=== PATIENT | male | born 1935 | race Two or more races ===

== ENCOUNTER → 2016-05-11 | Outpatient (CLI) | payer OTHER ==
[~2016-05-11] MED LIST: OMEP20CA5 PO
== END | disposition home or self-care (01) ==
LOC: LAB 14:59
PROVIDERS: ATTEND Internal Medicine
DX: I10 Essential (primary) hypertension (principal); R97.20 Elevated prostate specific antigen [PSA]; Z00.00 Encounter for general adult medical examination without abnormal findings
CPT/HCPCS: 82270

== ENCOUNTER → 2017-01-18 | Outpatient (CLI) | payer OTHER ==
[~2017-01-18] MED LIST changes: -OMEP20CA5 PO; +OMEP20CA74 PO
== END | disposition home or self-care (01) ==
LOC: XYW 09:27
PROVIDERS: ATTEND Internal Medicine Cardiovascular Disease
DX: I08.3 Combined rheumatic disorders of mitral, aortic and tricuspid valves (principal); Z95.0 Presence of cardiac pacemaker
CPT/HCPCS: 93306

== ENCOUNTER → 2017-02-09 | Outpatient (CLI) | payer OTHER ==
[2017-02-09 11:04] LABS: Albumin 4.1 g/dL (3.4-5.0); BUN/Creatinine Ratio 23.4; Basophils # (auto) 0 uL; Basophils % (auto) 0.9 % (0.0-2.0); Calcium 9.2 mg/dL (8.5-10.1); Eosinophils # (auto) 0.2 uL; Eosinophils % (auto) 2.8 % (0.0-7.0); Hematocrit 45.8 % (41.0-53.0); Hemoglobin 15.4 g/dL (13.5-17.5); Lymphocytes % (auto) 19.3 % (10.0-50.0); Mean Corpuscular Hemoglobin 32.4 pg (28.0-32.0); Mean Corpuscular Hgb Conc. 33.6 g/dL (32.0-36.0); Mean Corpuscular Volume 96.2 fL (80.0-100.0); Monocytes # (auto) 0.4 uL; Monocytes % (auto) 7.6 % (0.0-12.0); Neutrophils # (auto) 3.7 uL; Neutrophils % (auto) 69.4 % (37.0-80.0); Nucleated Red Blood Cells % 0.1 %; Platelet Count (auto) 197 10^3/uL (140-450); Potassium 4.3 mmol/L (3.5-5.1); Red Cell Distribution Width 14.9 % (11.8-14.3); Total Protein 8.3 g/dL (6.4-8.2); White Blood Cell 5.3 10^3/uL (4.4-10.8)
[2017-02-09 11:49] LABS: Urine Bilirubin Negative (Negative); Urine Blood Negative /uL (Negative); Urine Color Yellow (Yellow); Urine Glucose Normal (Normal); Urine Ketone Negative (Negative); Urine Mucus FEW (None Seen); Urine Nitrite Negative (Negative); Urine RBC <1 /hpf (0 - 3); Urine Squamous Epithelial Cell FEW /hpf (<5)
== END | disposition home or self-care (01) ==
LOC: LAB 09:59
PROVIDERS: ATTEND Internal Medicine
DX: I10 Essential (primary) hypertension (principal); E78.2 Mixed hyperlipidemia; E55.9 Vitamin D deficiency, unspecified; Z79.899 Other long term (current) drug therapy
CPT/HCPCS: 36415; 80053; 80061; 81001; 82306; 83036; 84153; 84443; 85025

== ENCOUNTER 2017-02-13 11:17 | Emergency (ER) | payer OTHER ==
[~2017-02-13] VITALS: Ht 165.1 cm; Wt 64.4 kg
[2017-02-13 12:26] LABS: Basophils # (auto) 0.1 uL; Basophils % (auto) 0.9 % (0.0-2.0); Eosinophils # (auto) 0.2 uL; Hematocrit 47.5 % (41.0-53.0); Hemoglobin 15.9 g/dL (13.5-17.5); Lymphocytes # (auto) 1.2 uL; Lymphocytes % (auto) 20.3 % (10.0-50.0); Mean Corpuscular Hemoglobin 32.2 pg (28.0-32.0); Mean Corpuscular Hgb Conc. 33.5 g/dL (32.0-36.0); Mean Corpuscular Volume 96.1 fL (80.0-100.0); Mean Platelet Volume 8.7 fL (6.9-10.8); Monocytes # (auto) 0.5 uL; Monocytes % (auto) 8.4 % (0.0-12.0); Neutrophils # (auto) 3.9 uL; Neutrophils % (auto) 66.4 % (37.0-80.0); Nucleated Red Blood Cells % 0.3 %; Platelet Count (auto) 193 10^3/uL (140-450); White Blood Cell 5.8 10^3/uL (4.4-10.8)
[2017-02-13] MEDS ORDERED: KETOROLAC TROMETH 60MG/2ML VIAL IM ONE (13:00)
[2017-02-13 13:52] VITALS: BP 139/69
[2017-02-13 14:17] LABS: Alkaline Phosphatase 82 U/L (45-117); Anion Gap 5 (5-15); Aspartate Aminotransferase 24 U/L (15-37); Bilirubin, Total 0.9 mg/dL (0.2-1.0); Carbon Dioxide 28 mmol/L (21-32); Chloride 100 mmol/L (98-107); GFR African American 88 mL/min; GFR Non-African American 73 mL/min; Glucose 91 mg/dL (74-106); Magnesium 2.1 mg/dL (1.6-2.6); Potassium 4.4 mmol/L (3.5-5.1); Sodium 133 mmol/L (136-145); Total Protein 8.5 g/dL (6.4-8.2)
[2017-02-13 14:25] LABS: BUN/Creatinine Ratio 22.1; Blood Urea Nitrogen 23 mg/dL (7-18)
== END 2017-02-13 13:53 | disposition home or self-care (01) ==
LOC: ER 11:17
DX: M79.602 Pain in left arm (principal); M54.9 Dorsalgia, unspecified; E11.9 Type 2 diabetes mellitus without complications; I10 Essential (primary) hypertension; I25.2 Old myocardial infarction; Z88.6 Allergy status to analgesic agent; Z88.5 Allergy status to narcotic agent; Z95.0 Presence of cardiac pacemaker
CPT/HCPCS: 36415; 70450; 80053; 83735; 84484; 85025; 93005; 96372; 99285; J1885

== ENCOUNTER 2017-06-06 21:52 | Inpatient (IN) | payer OTHER ==
[~2017-06-06] VITALS: Ht 152.4 cm; Wt 67.6 kg
[2017-06-06] MEDS ORDERED: IPRATROPIUM BROM 0.5 MG/2.5ML INH SOL NEB ONE (22:45)
[2017-06-06] MEDS ORDERED: ALBUTEROL SULF 2.5 MG/0.5ML(0.5%) NEB SOLN NEB ONE (22:45)
[2017-06-06 22:46] LABS: Basophils # (auto) 0.1 uL; Basophils % (auto) 0.8 % (0.0-2.0); Eosinophils # (auto) 0.3 uL; Eosinophils % (auto) 4.4 % (0.0-7.0); Hematocrit 41.8 % (41.0-53.0); Hemoglobin 13.9 g/dL (13.5-17.5); Lymphocytes # (auto) 1.2 uL; Lymphocytes % (auto) 17.8 % (10.0-50.0); Mean Corpuscular Hemoglobin 32.9 pg (28.0-32.0); Mean Corpuscular Hgb Conc. 33.3 g/dL (32.0-36.0); Mean Corpuscular Volume 98.8 fL (80.0-100.0); Monocytes # (auto) 0.8 uL; Monocytes % (auto) 11.7 % (0.0-12.0); Neutrophils # (auto) 4.5 uL; Neutrophils % (auto) 65.3 % (37.0-80.0); Platelet Count (auto) 193 10^3/uL (140-450); Red Blood Cells 4.23 10^6/uL (4.5-5.90); Red Cell Distribution Width 15.2 % (11.8-14.3); White Blood Cell 6.8 10^3/uL (4.4-10.8)
[2017-06-06 22:58] LABS: Albumin 3.6 g/dL (3.4-5.0); BUN/Creatinine Ratio 26.3; Bilirubin, Total 0.7 mg/dL (0.2-1.0); Calcium 8.7 mg/dL (8.5-10.1); Magnesium 2.3 mg/dL (1.6-2.6); Potassium 4.8 mmol/L (3.5-5.1); Total Protein 8.2 g/dL (6.4-8.2)
[2017-06-06 23:05] LABS: INR 1.06 (0.9-1.15); Partial Thromboplastin Time 30.7 sec (22.64-33.71); Prothrombin Time 11.6 sec (9.37-12.3)
[2017-06-06] MEDS ORDERED: LEVOFLOXACIN 500MG 100 ML IV ONE (23:15)
[2017-06-06] MEDS ORDERED: FUROSEMIDE 40 MG/4 ML VIAL IV ONE (23:15)
[2017-06-07] MEDS ORDERED: AZITHROMYCIN 500MG/ 250ML 250 ML IV ONE (03:00)
[2017-06-07] MEDS ORDERED: ACETAMINOPHEN 500 MG TAB PO PRN (03:00)
[2017-06-07] MEDS ORDERED: ONDANSETRON HCL 4 MG/2 ML VIAL IV PRN (03:00)
[2017-06-07] MEDS ORDERED: methylPREDNISolone SOD SUCC 125 MG/2 ML VL IV ONE (03:00)
[2017-06-07 06:01] VITALS: BP 140/69
[2017-06-07] MEDS: IPRATROPIUM BROM 0.5 MG/2.5ML INH SOL NEB SCH ×3 (06:18→18:53)
[2017-06-07] MEDS: ALBUTEROL SULF 2.5 MG/0.5ML(0.5%) NEB SOLN NEB SCH ×3 (06:18→18:53)
[2017-06-07 06:41] VITALS: BP 140/69
[2017-06-07 08:45] LABS: Basophils # (auto) 0 uL; Basophils % (auto) 0.3 % (0.0-2.0); Eosinophils # (auto) 0 uL; Eosinophils % (auto) 0.3 % (0.0-7.0); Hematocrit 42.8 % (41.0-53.0); Hemoglobin 14.1 g/dL (13.5-17.5); Lymphocytes # (auto) 0.4 uL; Lymphocytes % (auto) 7.4 % (10.0-50.0); Mean Corpuscular Hemoglobin 32.5 pg (28.0-32.0); Mean Corpuscular Volume 98.6 fL (80.0-100.0); Monocytes # (auto) 0.2 uL; Monocytes % (auto) 2.6 % (0.0-12.0); Neutrophils # (auto) 5.4 uL; Neutrophils % (auto) 89.4 % (37.0-80.0); Nucleated Red Blood Cells % 0.1 %; Platelet Count (auto) 204 10^3/uL (140-450); Red Blood Cells 4.34 10^6/uL (4.5-5.90); White Blood Cell 6.1 10^3/uL (4.4-10.8)
[2017-06-07 09:00] VITALS: BP 132/58
[2017-06-07 09:00] LABS: BUN/Creatinine Ratio 21.6; Calcium 9.2 mg/dL (8.5-10.1); Potassium 4.9 mmol/L (3.5-5.1)
[2017-06-07] MEDS: FUROSEMIDE 40 MG/4 ML VIAL IV SCH (09:16)
[2017-06-07] MEDS: HYDROcodone-ACET 5/325MG TAB PO PRN ×2 (12:10→20:34)
[2017-06-07 13:00] VITALS: BP 142/68
[2017-06-07 17:31] VITALS: BP 135/56
[2017-06-07] MEDS: AZITHROMYCIN 500MG/ 250ML 250 ML IV SCH (21:20)
[2017-06-07 22:00] VITALS: BP 157/70
[2017-06-07] MEDS: ATORVASTATIN 20 MG TAB PO SCH (22:00)
[2017-06-08] MEDS: HYDROcodone-ACET 5/325MG TAB PO PRN ×3 (00:09→21:08)
[2017-06-08] MEDS: ALBUTEROL SULF 2.5 MG/0.5ML(0.5%) NEB SOLN NEB SCH ×4 (00:20→20:10)
[2017-06-08] MEDS: IPRATROPIUM BROM 0.5 MG/2.5ML INH SOL NEB SCH ×4 (00:20→20:10)
[2017-06-08 05:16] VITALS: BP 153/78
[2017-06-08] MEDS: LEVOTHYROXINE SODIUM 25 MCG TAB PO SCH (05:57)
[2017-06-08 08:00] VITALS: BP 125/59
[2017-06-08 09:00] VITALS: BP 125/59
[2017-06-08] MEDS: ASPirin 81 mg TAB PO SCH (09:43)
[2017-06-08] MEDS: FUROSEMIDE 40 MG/4 ML VIAL IV SCH (09:43)
[2017-06-08] MEDS: LISINOPRIL 20 MG TAB PO SCH (09:44)
[2017-06-08] MEDS ORDERED: cefTRIAXone 1GM/10ml IVPUSH 10 ML IV ONE (11:00)
[2017-06-08 13:00] VITALS: BP 141/65
[2017-06-08 17:00] VITALS: BP 135/64
[2017-06-08] MEDS: AZITHROMYCIN 500MG/ 250ML 250 ML IV SCH (20:55)
[2017-06-08] MEDS: ATORVASTATIN 20 MG TAB PO SCH (21:08)
[2017-06-08 22:00] VITALS: BP 109/55
[2017-06-09] MEDS: IPRATROPIUM BROM 0.5 MG/2.5ML INH SOL NEB SCH ×3 (01:30→13:01)
[2017-06-09] MEDS: ALBUTEROL SULF 2.5 MG/0.5ML(0.5%) NEB SOLN NEB SCH ×3 (01:30→13:01)
[2017-06-09 05:00] VITALS: BP 143/59
[2017-06-09 06:14] VITALS: BP 115/55
[2017-06-09] MEDS: LEVOTHYROXINE SODIUM 25 MCG TAB PO SCH (07:28)
[2017-06-09 07:47] LABS: Basophils # (auto) 0 uL; Basophils % (auto) 0.6 % (0.0-2.0); Eosinophils # (auto) 0.3 uL; Eosinophils % (auto) 4.9 % (0.0-7.0); Hematocrit 42.5 % (41.0-53.0); Hemoglobin 14.2 g/dL (13.5-17.5); Lymphocytes # (auto) 1.6 uL; Lymphocytes % (auto) 22.8 % (10.0-50.0); Mean Corpuscular Hemoglobin 33.2 pg (28.0-32.0); Mean Corpuscular Hgb Conc. 33.4 g/dL (32.0-36.0); Mean Corpuscular Volume 99.6 fL (80.0-100.0); Monocytes # (auto) 0.6 uL; Monocytes % (auto) 9.1 % (0.0-12.0); Neutrophils # (auto) 4.4 uL; Neutrophils % (auto) 62.6 % (37.0-80.0); Platelet Count (auto) 205 10^3/uL (140-450); Red Blood Cells 4.27 10^6/uL (4.5-5.90); Red Cell Distribution Width 14.9 % (11.8-14.3)
[2017-06-09 07:52] LABS: BUN/Creatinine Ratio 32.2; Calcium 8.8 mg/dL (8.5-10.1); Potassium 5.5 mmol/L (3.5-5.1)
[2017-06-09 08:30] VITALS: BP 131/71
[2017-06-09 09:00] VITALS: BP 131/71
[2017-06-09] MEDS ORDERED: cefTRIAXone 1GM/10ml IVPUSH 10 ML IV SCH (09:00)
[2017-06-09] MEDS: LISINOPRIL 20 MG TAB PO SCH (09:04)
[2017-06-09] MEDS: FUROSEMIDE 40 MG/4 ML VIAL IV SCH (09:04)
[2017-06-09] MEDS: ASPirin 81 mg TAB PO SCH (09:04)
[2017-06-09 11:25] VITALS: BP 131/71
== END 2017-06-09 12:15 | disposition home or self-care (01) | DRG 291 ==
LOC: ER 21:52 → EDUNIT# 21:53 → TELE 21:53 → TELE-EAST 06-07 04:30
PROVIDERS: ADMIT Nurse Practitioner Family; ATTEND Family Medicine
DX: I11.0 Hypertensive heart disease with heart failure (principal); J18.1 Lobar pneumonia, unspecified organism; J44.0 Chronic obstructive pulmonary disease with (acute) lower respiratory infection; J20.9 Acute bronchitis, unspecified; J44.1 Chronic obstructive pulmonary disease with (acute) exacerbation; I50.43 Acute on chronic combined systolic (congestive) and diastolic (congestive) heart failure; E03.9 Hypothyroidism, unspecified; I25.10 Atherosclerotic heart disease of native coronary artery without angina pectoris; K21.9 Gastro-esophageal reflux disease without esophagitis; I25.2 Old myocardial infarction; Z79.899 Other long term (current) drug therapy; Z82.49 Family history of ischemic heart disease and other diseases of the circulatory system; Z95.0 Presence of cardiac pacemaker; Z87.891 Personal history of nicotine dependence; Z98.61 Coronary angioplasty status; Z95.1 Presence of aortocoronary bypass graft; Z88.5 Allergy status to narcotic agent
CPT/HCPCS: 36415; 71045; 71250; 80048; 80053; 83735; 83880; 84443; 84484; 85025; 85379; 85610; 85730; 87040; 87070; 87205; 87400; 93005; 93306; 94640; 96365; 96367; 96375; J1956; J2405

== ENCOUNTER → 2018-08-29 | Outpatient (CLI) | payer OTHER ==
[~2018-08-29] MED LIST changes: +DULO20CA PO; +FURO40TA4 PO; +IOHEXOL 350 MG/ML 100ML IJ ONE; +LOSA25TA40 PO; +OMEP20CA74; +POTA1TAB61 PO; +TAM04C PO; +TRIA75TA55 PO
== END | disposition home or self-care (01) ==
LOC: XYW 09:35
PROVIDERS: ATTEND Internal Medicine
DX: Z01.818 Encounter for other preprocedural examination (principal); K40.90 Unilateral inguinal hernia, without obstruction or gangrene, not specified as recurrent; N40.0 Benign prostatic hyperplasia without lower urinary tract symptoms; I35.1 Nonrheumatic aortic (valve) insufficiency; N28.1 Cyst of kidney, acquired; I35.0 Nonrheumatic aortic (valve) stenosis; I51.7 Cardiomegaly
CPT/HCPCS: 75574; 75625; Q9967

== ENCOUNTER 2018-08-31 08:19 | Inpatient (IN) | payer OTHER ==
[~2018-08-31] VITALS: Ht 165.1 cm; Wt 98.6 kg
[~2018-08-31 08:19] MED LIST changes: -IOHEXOL 350 MG/ML 100ML IJ ONE
[2018-08-31] MEDS ORDERED: IOHEXOL 350 MG/ML 100ML IJ ONE ×3 (08:53→11:01)
[2018-08-31] MEDS ORDERED: LIDOCAINE 2%HCL (LOCAL ANESTH.) INJ 20ML MDV ONE (08:53)
[2018-08-31] MEDS ORDERED: MIDAZOLAM HCL 1MG/1ML-2 ML VIAL IV ONE (09:00)
[2018-08-31] MEDS ORDERED: LIDOCAINE VISCOUS 2% 15ML UD PO ONE (09:00)
[2018-08-31] MEDS ORDERED: fentaNYL CITRATE 100 MCG/2 ML VL IV ONE (09:00)
[2018-08-31] MEDS ORDERED: LIDOCAINE VISCOUS 2% 15ML UD ONE (09:05)
[2018-08-31] MEDS ORDERED: fentaNYL CITRATE 100 MCG/2 ML VL ONE (09:05)
[2018-08-31] MEDS ORDERED: MIDAZOLAM HCL 1MG/1ML-2 ML VIAL ONE (09:05)
[2018-08-31] MEDS ORDERED: SODIUM CHL 0.9% 50 ML ONE (10:15)
[2018-08-31] MEDS ORDERED: ANGIOMAX 250 MG VIAL IV ONE (10:15)
[2018-08-31] MEDS ORDERED: ATROPINE SULFATE 1 MG/1 ML VIAL ONE (10:44)
[2018-08-31] MEDS ORDERED: DOPamine 1600MCG/ML D5W 0 ML IV ONE (11:10)
[2018-08-31] MEDS ORDERED: IODIXANOL 320MG/ML 100ML BTL IV ONE (11:16)
[2018-08-31] MEDS ORDERED: ASPirin 325 MG TAB ONE (11:29)
[2018-08-31] MEDS ORDERED: TICAGRELOR 90 MG TAB ONE (11:29)
[2018-08-31] MEDS ORDERED: MORPHINE SULF INJ 2 MG/ML SYRINGE 1ML IV PRN (13:15)
[2018-08-31] MEDS ORDERED: NITROGLYCERIN 0.4 MG SL TAB SL PRN (13:15)
[2018-08-31 15:20] VITALS: BP 144/80
--- NOTE | 2018-08-31 15:20 | NUR ---
RECEIVED PT FROM TELEVISION NEWSCAST DIRECTOR S/P LT AND RT HEART CATH, RT GROIN DRESSING WITH A SMALL SANGUINEOUS DRAINAGE CIRCLED, BRUISING AND HEMATOMA NOTICED AROUND RT GROIN AREA, BORDERS OF HEMATOMA MARKED, TELEVISION NEWSCAST DIRECTOR NURSE APPLIED PRESSURE TO RT GROIN FOR 10 MIN., PT REPORT PAIN TO RT GROIN AREA WHEN PRESSURE APPLIED ONLY, PEDAL PULSES PRESENT, PT EDUCATED TO STAY IN BED UNTIL 2100, PT VERBALIZED UNDERSTANDING, CALL LIGHT WITHIN REACH, WILL CONTINUE TO MONITOR PT.
[2018-08-31 16:07] VITALS: BP 144/80
[2018-08-31 16:30] VITALS: BP_SYST 128; BP_SYST 144; BP_DIAS 62; BP_DIAS 80
[2018-08-31 17:15] VITALS: BP 156/67
[2018-08-31] MEDS: TAMSULOSIN HYDROCHLORIDE 0.4 MG CAP PO SCH (17:58)
[2018-08-31] MEDS: FUROSEMIDE 40 MG TAB PO SCH (17:59)
[2018-08-31] MEDS ORDERED: PANTOPRAZOLE 40 MG TAB PO ONE (18:30)
--- NOTE | 2018-08-31 18:48 | NUR ---
ASSESSED RT GROIN AREA, HEMATOMA MARGIN HAS NOT CHANGED, RT GROIN DRESSING SATURATED WITH SEROSANGUINEOUS FLUID, CHANGED DRESSING, WILL CONTINUE TO MONITOR AND ENDORSE IT TO OVERLOCK SEWING MACHINE OPERATOR NURSE.
--- NOTE | 2018-08-31 19:10 | NUR ---
Opening Shift Note Assumed care of patient from day shift RN Indira. Pt is awake and alert and oriented x4. Safety maintained with bed rails upx2, locked and in lowest position with call grier within reach. No S/S of distress/SOB or pain. Instructed on POC and to call for assist PRN, will continue to monitor for changes Q1hr and PRN.
--- NOTE | 2018-08-31 21:00 | NUR ---
REASSESSED RIGHT GROIN AREA, HEMATOMA MARGIN MARKED, SIGNIFICANTLY DECREASED IN SIZE. REAPPLED MANUAL PRESSURE. SATURATED WITH MINIMAL AMOUNT OF SANGUINEOUS FLUID. REAPPLIED 10LB SAND BAG ON RIGHT GROIN. NO S/S DISTRESS, WILL CONTINUE TO MONITOR.
[2018-08-31 22:00] VITALS: BP 129/73
--- NOTE | 2018-08-31 22:30 | NUR ---
DRESSING CHANGE RIGHT GROIN INCISION DRAINING MODERATE SANGUINEOUS FLUID. DRESSING CHANGED, SMALL BLOOD CLOT NOTED. REAPPLIED MANUAL PRESSURE AFTER DRESSING CHANGE. PLACED 10LB SAND BAG ON RIGHT GROIN. NO S/S DISTRESS, WILL CONTINUE TO MONITOR.
[2018-08-31] MEDS: TICAGRELOR 90 MG TAB PO SCH (22:31)
[2018-09-01] VITALS (17 sets, daily range): BP systolic 86–154; BP diastolic 37–89
--- NOTE | 2018-09-01 02:15 | NUR ---
RIGHT GROIN DRESSING FULLY SATURATED WITH SANGUINEOUS DRAINAGE. PATIENT'S RIGHT FEMORAL PULSE AND RIGHT DORSALIS PEDIS PULSE STRONG. PT ABLE TO WIGGLE TOES. CAP REFILL <3 SECONDS. PT DENIES PAIN, ONLY C/O SORENESS. APPLIED MANUAL PRESSURE FOR 20 MINUTES. CHANGED DRESSING TO RIGHT GROIN. HEMATOMA REMARKED, NO CHANGES FROM PRIOR ISAURA. 10LB SAND BAG REAPPLIED. WILL CONTINUE TO MONITOR FOR BLEEDING. Addendum: 09/01/18 at 0257 by SANGEETA VARGAS RN RN CHARGE NURSE JD MADE AWARE OF PATIENT'S STATUS
--- NOTE | 2018-09-01 04:24 | NUR ---
HOSPITALIST PAGED PER CHARGE NURSE JD, MAKE HOSPITALIST AWARE OF PATIENT'S SITUATION.
--- NOTE | 2018-09-01 05:25 | NUR ---
DR. ROJO UPDATED DR. ROJO ABOUT PATIENT'S SITUATION. NEW ORDERS FOR STAT CBC AND ULTRASOUND OF RIGHT GROIN. INSTRUCTED TO HOLD MANUAL PRESSURE UNTIL BLEEDING STOPS. TRANSFER TO ICU FOR PROPER MONITORING. CALLED HOUSE AMARJIT, MADE AWARE OF TRANSFER REQUEST. ASSIGNED TO ROOM 103THERESA RN. Addendum: 09/01/18 at 0610 by SANGEETA VARGAS RN RN ROOM 102THERESA RN
--- NOTE | 2018-09-01 05:51 | NUR ---
REPORT GIVEN TO THERESA DANIELS
[2018-09-01] MEDS: FUROSEMIDE 40 MG TAB PO SCH ×2 (05:53→09:33)
--- NOTE | 2018-09-01 06:00 | NUR ---
ARRIVAL NOTE PT ARRIVED TO ICU FROM TELE. VS ON ARRIVAL, TEMP 98.5 ORAL. HR 60 PACED, RR 14, O2 96% ON RA, BP 154/61. PATIENT ALERT AND ORIENTED X4. PT HAS LARGE HEMATOMA AROUND CATH SITE. DRESSING SOAKED IN BLOOD. 10 LBS SANDBAG PLACED ON SITE. PT DENIES PAIN AT THIS TIME. pT PLACED IN ICU BED AND WEIGHED. 65KGS. PT ORIENTED TO RN AND UNIT. BED LOCKED AND IN LOWEST POSITION, SAFETY PRECAUTIONS IN PLACE. PT INSTRUCTED TO KEEP RIGHT LEG STRAIGHT AND USE CALL BLANKENSHIP IF PATIENT NEEDS ANYTHING. PT VERBALIZED UNDERSTANDING.
--- NOTE | 2018-09-01 06:07 | NUR ---
PATIENT TRANSFERRED TO ICU ROOM 102 Addendum: 09/01/18 at 0616 by SANGEETA VARGAS RN RN PATIENT TRANSFERRED TO ICU ROOM 103
--- NOTE | 2018-09-01 06:16 | NUR ---
ROOM 103, JEREMIAH CARDENAS.
--- NOTE | 2018-09-01 06:18 | NUR ---
CALL PLACED TO PATIENT'S TO INFORM OF PATIENT TRANSFER TO ICU
--- NOTE | 2018-09-01 06:40 | NUR ---
SAFE GUARD WITH 40 CC OF AIR PLACED ON CATH SITE BY CUSTOMS AND BORDER PROTECTION OFFICER YVONNE. PT TOLERATED WELL. SLIGHT OOZING NOTED FROM SITE.
[2018-09-01 07:19] LABS: Basophils # (auto) 0 uL; Basophils % (auto) 0.4 % (0.0-2.0); Eosinophils # (auto) 0 uL; Eosinophils % (auto) 0.2 % (0.0-7.0); Hematocrit 39.7 % (41.0-53.0); Hemoglobin 13.2 g/dL (13.5-17.5); Lymphocytes # (auto) 0.4 uL; Lymphocytes % (auto) 6.2 % (10.0-50.0); Mean Corpuscular Hemoglobin 32.7 pg (28.0-32.0); Mean Corpuscular Hgb Conc. 33.2 g/dL (32.0-36.0); Mean Corpuscular Volume 98.3 fL (80.0-100.0); Monocytes # (auto) 0.4 uL; Monocytes % (auto) 6.4 % (0.0-12.0); Neutrophils # (auto) 6.1 uL; Neutrophils % (auto) 86.8 % (37.0-80.0); Platelet Count (auto) 121 10^3/uL (140-450); Red Blood Cells 4.04 10^6/uL (4.5-5.90); Red Cell Distribution Width 14.9 % (11.8-14.3)
--- NOTE | 2018-09-01 07:45 | NUR ---
ASSESS- PT. LYING IN BED WITH EYES CLOSED. AROUSABLE, ALERT AND ORIENTED TIMES FOUR. DENIES ANY PAIN OR DISCOMFORT AT THIS TIME. LUNGS CLEAR AFIA. INSPIRATORY AND EXPIRATORY. NO SOB. ON R/A. ABD. SOFT, FLAT, NON-TENDER. BOWEL SOUNDS ALL FOUR QUADRANTS. NO N/V. PASSING FLATUS PT. STATED. RADIAL PULSES STRONG, PALPABLE AFIA. PEDAL PULSES STRONG, PALPABLE AFIA. NO EDEMA. RT. GROIN WITH SAFEGUARD INTACT, SM. AMOUNT BLOOD UNDERNEATH SAFEGUARD, LG. HEMATOMA RT. GROIN WITH BRUISING. PT. ON STRICT BEDREST, EXPLAINED TO PT. IMPORTANCE OF BEING ON BEDREST, PT. COMPREHENDS.
--- NOTE | 2018-09-01 09:30 | NUR ---
Family updated on pt status Family of RON CRUZ updated on patient's status and condition. All questions and concerns addressed. verbalized understanding. VISITING AT THE BS.
[2018-09-01] MEDS: POTASSIUM CHL 10 Meq TABLET PO SCH (09:32)
[2018-09-01] MEDS: ASPirin 81 mg TAB PO SCH ×2 (09:33→11:41)
[2018-09-01] MEDS ORDERED: PANTOPRAZOLE 40 MG TAB PO SCH (10:00)
--- NOTE | 2018-09-01 10:00 | NUR ---
TECH AT BS FOR US RT. GROIN. DEFLATED SAFEGUARD FOR TEST.
--- NOTE | 2018-09-01 10:10 | NUR ---
US COMPLETED. RT. GROIN STARTED TO BLEED. REINFLATED SAFEGUARD RT. GROIN WITH 40 CC OF AIR. MONITORING PT. FOR BLEEDING.
--- NOTE | 2018-09-01 10:45 | NUR ---
NO BLEEDING AT RT. GROIN SITE. SAFEGUARD INFLATED AND INTACT. LG. HEMATOMA PRESENT RT. GROIN WITH BRUISING.
--- NOTE | 2018-09-01 11:25 | NUR ---
DR. ROJO Provider/Hospitalist at bedside. GAVE UPDATE ON PT. SPOKE WITH PT., AND DAUGHTER AT BS. OK TO GIVE BRILINTA AND ASPIRIN TODAY. NO MORE BLEEDING AT RT. GROIN. SAFEGUARD IN PLACE. VSS.
[2018-09-01] MEDS: TICAGRELOR 90 MG TAB PO SCH ×2 (11:41→21:45)
--- NOTE | 2018-09-01 12:45 | NUR ---
PT. HAD GOTTEN UP TO TOILET BY SELF TO HAVE BM. STARTED BLEEDING RT. GROIN, SAFEGUARD CAME OFF SITE. CLOT TO RT. GROIN SEEN WITH SOME BLEEDING TO SITE. CLEANSED PT'S. GROIN AREA AND APPLIED NEW SAFEGUARD WITH 40 CC OF AIR. CHANGED PT'S. GOWN AND LINENS. TOLERATED WELL.
--- NOTE | 2018-09-01 12:55 | NUR ---
Called/paged Dr. ROJO called re: . Waiting for call back. Continue care.
--- NOTE | 2018-09-01 13:00 | NUR ---
returned call Dr. ROJO returned call, updated on patient status and reason for call, orders received. Continue care.
[2018-09-01] MEDS ORDERED: THROMBIN (BOVINE) 5000 UNIT SOL VIAL ONE (13:42)
--- NOTE | 2018-09-01 13:45 | NUR ---
Called/paged Dr. ROJO called re: . Waiting for call back. Continue care.
--- NOTE | 2018-09-01 13:50 | NUR ---
returned call Dr. ORJO returned call, updated on patient status and reason for call, orders received. Continue care. [employer] COMING TO BS NOW WITH DR. ROJO.
--- NOTE | 2018-09-01 14:00 | NUR ---
DR. ROJO AT BS WITH [employer] TECH TO INJECT THROMBIN INTO PSEUDOANEURYSM RT. GROIN. USED 1CC OF THROMBIN FROM 5000 UNIT VIAL. PT. TOLERATED WELL. NO MORE BLEEDING TO RT. GROIN AFTER PROCEDURE, AREA HAS LG. BRUISE. APPLIED TEGADERM TO SITE WITH 4X4. PULSES STRONG, PALPABLE ALL EXT.
[2018-09-01] MEDS ORDERED: LIDOCAINE 1% (LOCAL ANESTH.) PF 5ml SDV ONE (14:07)
[2018-09-01] MEDS ORDERED: THROMBIN (BOVINE) 5000 UNIT SOL VIAL XX ONE (15:00)
--- NOTE | 2018-09-01 15:30 | NUR ---
RT. GROIN WITH DSG. D/I, LG. BRUISE TO AREA. NO BLEEDING AT THIS TIME.
--- NOTE | 2018-09-01 15:30 | NUR ---
DR. LR Provider/Hospitalist at bedside. GAVE UPDATE ON PT. NEW ORDERS RECEIVED.
[2018-09-01] MEDS ORDERED: PANTOPRAZOLE 40 MG TAB PO ONE (15:45)
[2018-09-01] MEDS ORDERED: LISINOPRIL 10 MG TAB PO ONE (15:45)
[2018-09-01 16:17] LABS: Urine WBC None Seen /hpf (0 - 3)
--- NOTE | 2018-09-01 16:30 | NUR ---
PT. STATED HE FELT LIKE HE CAN NOT CATCH HIS BREATH. LUNGS CLEAR AFIA. INSPIRATORY AND EXPIRATORY. RR TEENS TO LOW 20'S. O2 SATS 94%. PLACED O2 2L N/C ON PT. O2 SATS INCREASED TO 98%. MONITORING PT.
--- NOTE | 2018-09-01 17:00 | NUR ---
PT. NO LONGER SOB. O2 SATS 97%-98%. NO SIGNS OF RESP. DISTRESS. PT. STATED HIS VISION SEEMS BLURRY WHEN HE IS READING BOARD IN RM. AND WAS NOT LIKE THAT PREVIOUSLY. NO HEADACHE. NO LIGHTHEADNESS OR DIZZYNESS. PUPILS 2 AND BRISK AFIA. TO LIGHT. MOVES ALL EXTREMITIES WITHOUT DIFFICULTY. SBP ONE TEENS AFTER RECEIVING LISINOPRIL 10 MG. PO PREVIOUSLY. HR 60'S SR WITH BBB.
[2018-09-01 17:04] LABS: Calcium 9.2 mg/dL (8.5-10.1); Potassium 3.5 mmol/L (3.5-5.1)
[2018-09-01 17:07] LABS: BUN/Creatinine Ratio 17.8
[2018-09-01 17:18] LABS: Basophils # (auto) 0.1 uL; Basophils % (auto) 1.7 % (0.0-2.0); Eosinophils # (auto) 0 uL; Eosinophils % (auto) 0.6 % (0.0-7.0); Hematocrit 40.4 % (41.0-53.0); Hemoglobin 13.7 g/dL (13.5-17.5); Lymphocytes # (auto) 0.5 uL; Mean Corpuscular Hgb Conc. 33.8 g/dL (32.0-36.0); Mean Corpuscular Volume 97.7 fL (80.0-100.0); Monocytes # (auto) 0.5 uL; Monocytes % (auto) 7.8 % (0.0-12.0); Neutrophils # (auto) 5.5 uL; Neutrophils % (auto) 81.9 % (37.0-80.0); Platelet Count (auto) 124 10^3/uL (140-450); Red Blood Cells 4.14 10^6/uL (4.5-5.90); Red Cell Distribution Width 14.6 % (11.8-14.3); White Blood Cell 6.7 10^3/uL (4.4-10.8)
[2018-09-01 17:22] LABS: Urine Bacteria NONE SEEN /hpf (None Seen); Urine Blood 2+ /uL (Negative); Urine Specific Gravity 1.013 (1.001-1.035)
--- NOTE | 2018-09-01 18:30 | NUR ---
PT. HAD GOTTEN OOB, STANDING AT THE BS, GAIT STEADY. PT. WAS ASLEEP AND SAID WHEN HE WOKE UP HE FORGOT WHERE HE WAS, THOUGHT HE WAS AT . PT. DID NOT USE CALL BLANKENSHIP. REORIENTED PT. AND INFORMED IMPORTANCE OF CALLING NURSE SO HE DOES NOT FALL OR GET INJURED. PLACED BED ALARM ON.
--- NOTE | 2018-09-01 19:00 | NUR ---
OPENING NOTE ASSUMED CARE OF PT AT THIS TIME. REPORT RECEIVED FROM DAY SHIFT RN. POC REVIEWED WITH PT. HEAD TO TOE ASSESSMENT COMPLETE, SEE INTERVENTION SPREADSHEET FOR COMPLETE DETAILS. PATIENT ALERT AND ORIENTED WITH BOUTS OF FORGETFULNESS. PT REQUIRES FREQUENT REINFORCEMENT NOT TO GET OUT OF BED. BED ALARM ON AT THIS TIME. IV SITE BENIGN. PT DENIES PAIN. VSS. BED LOCKED AND IN LOWEST POSITION, SAFETY PRECAUTIONS IN PLACE. RIGHT GROIN CATH SITE BRUISED AND TENDER TO TOUCH. NO BLOOD NOTED ON DRESSING. BED REST ENCOURAGED. WILL MONITOR PT CAREFULLY.
[2018-09-01] MEDS: TAMSULOSIN HYDROCHLORIDE 0.4 MG CAP PO SCH (19:24)
--- NOTE | 2018-09-01 21:08 | NUR ---
PT OOB ASSISTED BY JEREMIAH CARDENAS TO RESTROOM. PT WENT 1 AND 2. PT BACK IN BED WITH NO INCIDENT. BED LOCKED AND IN LOWEST POSITION. BED ALARM ON. PT INSTRUCTED TO USE CALL BLANKENSHIP. PT VERBALIZE UNDERSTANDING.
[2018-09-02] VITALS (16 sets, daily range): BP systolic 85–125; BP diastolic 36–69
[2018-09-02 04:15] LABS: Basophils # (auto) 0 uL; Basophils % (auto) 0.3 % (0.0-2.0); Eosinophils # (auto) 0.1 uL; Eosinophils % (auto) 2.3 % (0.0-7.0); Hematocrit 39.2 % (41.0-53.0); Hemoglobin 12.9 g/dL (13.5-17.5); Lymphocytes # (auto) 0.6 uL; Lymphocytes % (auto) 9.6 % (10.0-50.0); Mean Corpuscular Hemoglobin 32.4 pg (28.0-32.0); Mean Corpuscular Volume 98.3 fL (80.0-100.0); Monocytes # (auto) 0.7 uL; Monocytes % (auto) 11.2 % (0.0-12.0); Neutrophils # (auto) 4.7 uL; Neutrophils % (auto) 76.6 % (37.0-80.0); Platelet Count (auto) 116 10^3/uL (140-450); Red Blood Cells 3.99 10^6/uL (4.5-5.90); Red Cell Distribution Width 14.5 % (11.8-14.3); White Blood Cell 6.1 10^3/uL (4.4-10.8)
[2018-09-02 04:18] LABS: Potassium 3.9 mmol/L (3.5-5.1)
[2018-09-02 04:21] LABS: Albumin 3.4 g/dL (3.4-5.0); Calcium 9.1 mg/dL (8.5-10.1)
[2018-09-02 04:27] LABS: BUN/Creatinine Ratio 20.1; Bilirubin, Total 1.1 mg/dL (0.2-1.0); Total Protein 6.9 g/dL (6.4-8.2)
[2018-09-02] MEDS: FUROSEMIDE 40 MG TAB PO SCH ×2 (06:09→15:50)
--- NOTE | 2018-09-02 07:30 | NUR ---
ASSESS- PT. LYING IN BED WITH EYES CLOSED, AROUSABLE. ALERT AND ORIENTED TIMES FOUR. DENIES ANY PAIN OR DISCOMFORT. RT. GROIN WITH TEGADERM DSG. D/I S/P HEART CATH, TENDER TO TOUCH, LG. BRUISE TO AREA, NO BLEEDING. LUNGS CLEAR AFIA. INSPIRATORY AND EXPIRATORY. NO SOB. O2 2L N/C. O2 SATS 99%, DECREASED TO 1 LITER. ABD. SOFT, FLAT, NON-TENDER. BOWEL SOUNDS ALL FOUR QUADRANTS. NO N/V. VOIDS VIA URINAL WITHOUT DIFFICULTY. RADIAL PULSES STRONG, PALPABLE AFIA. PEDAL PULSES STRONG, PALPABLE AFIA. NO EDEMA. MOVES ALL EXTREMITIES WITHOUT DIFFICULTY. TURNS SELF IN BED. BED ALARM ON, PT. HAS GOTTEN OOB WITHOUT CALLING.
[2018-09-02] MEDS: ASPirin 81 mg TAB PO SCH (09:20)
[2018-09-02] MEDS: PANTOPRAZOLE 40 MG TAB PO SCH (09:20)
[2018-09-02] MEDS: LISINOPRIL 10 MG TAB PO SCH (09:20)
[2018-09-02] MEDS: TICAGRELOR 90 MG TAB PO SCH ×2 (09:20→21:54)
[2018-09-02] MEDS: POTASSIUM CHL 10 Meq TABLET PO SCH (09:20)
--- NOTE | 2018-09-02 10:00 | NUR ---
AND FAMILY VISITING AT THE BS.
--- NOTE | 2018-09-02 10:20 | NUR ---
DR. ROJO Provider/Hospitalist at bedside. GAVE UPDATE ON PT. SPOKE WITH PT'S. AND FAMILY AT BS.
--- NOTE | 2018-09-02 10:30 | NUR ---
AMBULATED PT. WITH ROLLING WALKER ON ASSEMBLER RADIO AND ELECTRICAL AND PULSE OX ON R/A AROUND ICU UNIT. PT. AMBULATED 4 LAPS. NO SOB. O2 SATS MID 90'S. HR INCREASED TO UPPER 100'S ST WITHOUT ECTOPY. NO LIGHTHEADNESS OR DIZZYNESS. STEADY GAIT. PT. TOLERATED WELL.
--- NOTE | 2018-09-02 12:00 | NUR ---
SBP 85. REPEATED BP STILL 85 SYSTOLIC. NO LIGHTHEADNESS OR DIZZYNESS. MONITORING BP.
--- NOTE | 2018-09-02 14:00 | NUR ---
SBP 90'S-100'S.
--- NOTE | 2018-09-02 15:40 | NUR ---
DR. DRAKE Provider/Hospitalist at bedside. GAVE UPDATE ON PT. NEW ORDERS RECEIVED.
--- NOTE | 2018-09-02 15:50 | NUR ---
CALLED PT'S. TO LET HER KNOW PT. WILL BE STAYING IN THE HOSPITAL UNTIL TOMORROW AND BE REEVALUATED BY .
--- NOTE | 2018-09-02 17:10 | NUR ---
PT. TRANSFERRED VIA W/C ON TELE # 15, ON R/A, BELONGINGS WITH PT. TO RM. 249-A. REPORT GIVEN TO JEREMIAH LEYVA. CALLED PT'S. AND LET HER KNOW OF PT'S. NEW RM. #.
--- NOTE | 2018-09-02 17:15 | NUR ---
Admit From ICU Received report on patient from ICU nurse. Patient shows no signs of distress at this time. Vitals: BP 113/46 HR 6 RR 16 Temp 98.0 and O2 98% on room air. Discussed POC with patient. Oriented patient to room and visiting hours. Bed in lowest locked position, side rails up x2, and call light within reach. Will continue to monitor.
[2018-09-02] MEDS ORDERED: FUROSEMIDE 40 MG TAB PO SCH (18:00)
[2018-09-02] MEDS: TAMSULOSIN HYDROCHLORIDE 0.4 MG CAP PO SCH (19:36)
--- NOTE | 2018-09-02 19:41 | NUR ---
Opening Shift Note Assumed care of patient, awake and alert x4. No S/S of distress/SOB or pain. Instructed on POC and to call for assistance PRN, will continue to monitor for changes Q1hr and PRN. Dressing to right groin cdi, bruising around site soft to touch. Family at bedside
--- NOTE | 2018-09-03 | NUR ---
Rounds Patient sleeping respirations even and unlabored. No S/S of distress/SOB or pain. Will continue to monitor changes q1hr and PRN.
[2018-09-03 05:00] VITALS: BP 111/50
--- NOTE | 2018-09-03 07:30 | NUR ---
Opening Shift Note Assuming care of patient at this time. Patient is awake, alert, and oriented x4. Patient is resting in bed. Bed is locked and lowered with side rails up x2. Patient does not appear to be in any distress or shortness of breath at this time. Patient denies pain. Instructed patient on the plan of care for today and to call for assistance as needed. Call light within reach. Will continue round hourly and as needed.
[2018-09-03 08:00] VITALS: BP 130/41
[2018-09-03] MEDS: LISINOPRIL 10 MG TAB PO SCH (10:00)
[2018-09-03] MEDS: TICAGRELOR 90 MG TAB PO SCH (11:52)
[2018-09-03] MEDS: PANTOPRAZOLE 40 MG TAB PO SCH (11:58)
[2018-09-03] MEDS: POTASSIUM CHL 10 Meq TABLET PO SCH (11:58)
[2018-09-03] MEDS: ASPirin 81 mg TAB PO SCH (11:58)
[2018-09-03 13:26] VITALS: BP 145/78
--- NOTE | 2018-09-03 14:10 | NUR ---
Patient Refusing MRSA Patient does not want to have MRSA screening done. Patient is in a hurry to go home due to his son having to use the car to chart picker his children. Patient refused to have MRSA screening at this time.
--- NOTE | 2018-09-03 14:15 | NUR ---
Discharge Discharge instructions given as ordered. Encourage to follow up with PMD as instructed. Appointment made with Dr. Vyas. All questions and concerns addressed. Patient verbalized understanding. Medication reconciliation form completed and copy given to patient. IV removed with catheter intact, pressure dressing applied. Telemetry unit returned to [facility]. Patient taken to vehicle via wheelchair with all personal belongings, accompanied by staff and family member. No distress noted at time of departure.
[2018-09-03 14:21] VITALS: BP 137/48
== END 2018-09-03 14:10 | disposition home or self-care (01) | DRG 246 ==
LOC: CATH 08:19 → TELE-WESTW 15:56 → ICU WEST 09-01 06:13 → TELE-EAST 09-02 17:22
PROVIDERS: ADMIT Internal Medicine; ATTEND Internal Medicine
PROC: 027034Z Dilation of Coronary Artery, One Artery with Drug-eluting Intraluminal Device, Percutaneous Approach (ICD-10-PCS; principal; 2018-08-31)
PROC: 4A023N8 Measurement of Cardiac Sampling and Pressure, Bilateral, Percutaneous Approach (ICD-10-PCS; 2018-08-31)
PROC: B2111ZZ Fluoroscopy of Multiple Coronary Arteries using Low Osmolar Contrast (ICD-10-PCS; 2018-08-31)
PROC: B2151ZZ Fluoroscopy of Left Heart using Low Osmolar Contrast (ICD-10-PCS; 2018-08-31)
PROC: B24BZZ4 Ultrasonography of Heart with Aorta, Transesophageal (ICD-10-PCS; 2018-08-31)
PROC: 4A023N8 Measurement of Cardiac Sampling and Pressure, Bilateral, Percutaneous Approach (ICD-10-PCS; 2018-08-31)
PROC: B2111ZZ Fluoroscopy of Multiple Coronary Arteries using Low Osmolar Contrast (ICD-10-PCS; 2018-08-31)
PROC: B2151ZZ Fluoroscopy of Left Heart using Low Osmolar Contrast (ICD-10-PCS; 2018-08-31)
PROC: B241ZZ3 Ultrasonography of Multiple Coronary Arteries, Intravascular (ICD-10-PCS; 2018-08-31)
PROC: 3E05317 Introduction of Other Thrombolytic into Peripheral Artery, Percutaneous Approach (ICD-10-PCS; 2018-09-01)
DX: I25.10 Atherosclerotic heart disease of native coronary artery without angina pectoris (principal); I50.23 Acute on chronic systolic (congestive) heart failure; I11.0 Hypertensive heart disease with heart failure; N40.0 Benign prostatic hyperplasia without lower urinary tract symptoms; I08.0 Rheumatic disorders of both mitral and aortic valves; K21.9 Gastro-esophageal reflux disease without esophagitis; K44.9 Diaphragmatic hernia without obstruction or gangrene; I72.8 Aneurysm of other specified arteries; S30.1XXA Contusion of abdominal wall, initial encounter; X58.XXXA Exposure to other specified factors, initial encounter; Z79.02 Long term (current) use of antithrombotics/antiplatelets; Z79.82 Long term (current) use of aspirin; Z79.899 Other long term (current) drug therapy; Z86.718 Personal history of other venous thrombosis and embolism; Z95.810 Presence of automatic (implantable) cardiac defibrillator; Y93.89 Activity, other specified; Y92.89 Other specified places as the place of occurrence of the external cause; Y99.8 Other external cause status
CPT/HCPCS: 36415; 71045; 76881; 80048; 80053; 81001; 85025; 92928; 92978; 93312; 93460; 99152; C1751; C1874; C1887; G0378; J0461; J2250; Q9967

== ENCOUNTER → 2018-12-12 | Outpatient (CLI) | payer OTHER ==
[~2018-12-12] MED LIST changes: +LOSA25TA38 PO; -LOSA25TA40 PO
== END | disposition home or self-care (01) ==
LOC: LAB 14:48
PROVIDERS: ATTEND Internal Medicine
DX: Z01.812 Encounter for preprocedural laboratory examination (principal)
CPT/HCPCS: 36415; 82565; 84520

== ENCOUNTER → 2018-12-31 | Outpatient (CLI) | payer OTHER | END | disposition home or self-care (01) | LOC: LAB 09:11 | PROVIDERS: ATTEND Internal Medicine | DX: Z01.812 Encounter for preprocedural laboratory examination (principal); I50.9 Heart failure, unspecified | CPT/HCPCS: 36415; 82565; 84520 ==

== ENCOUNTER → 2019-01-01 | Outpatient (CLI) | payer OTHER | END | disposition home or self-care (01) | LOC: CT 08:27 | PROVIDERS: ATTEND Internal Medicine | DX: I05.0 Rheumatic mitral stenosis (principal); I35.0 Nonrheumatic aortic (valve) stenosis; I11.0 Hypertensive heart disease with heart failure; I50.9 Heart failure, unspecified; M51.24 Other intervertebral disc displacement, thoracic region | CPT/HCPCS: 75574 ==

== ENCOUNTER → 2019-01-10 | Outpatient (CLI) | payer OTHER | END | disposition home or self-care (01) | LOC: XYW 08:40 | PROVIDERS: ATTEND Internal Medicine | DX: I05.0 Rheumatic mitral stenosis (principal); I35.0 Nonrheumatic aortic (valve) stenosis; I77.89 Other specified disorders of arteries and arterioles; I25.10 Atherosclerotic heart disease of native coronary artery without angina pectoris; I50.22 Chronic systolic (congestive) heart failure | CPT/HCPCS: 93306 ==

== ENCOUNTER → 2019-02-26 | Outpatient (CLI) | payer OTHER | END | disposition home or self-care (01) | LOC: XY 08:31 | PROVIDERS: ATTEND Internal Medicine | DX: I35.1 Nonrheumatic aortic (valve) insufficiency (principal); R09.89 Other specified symptoms and signs involving the circulatory and respiratory systems | CPT/HCPCS: 36600; 82805; 93886 ==

== ENCOUNTER 2019-02-27 11:36 | Inpatient (IN) | payer OTHER ==
[~2019-02-27] VITALS: Ht 166.4 cm; Wt 62.0 kg
[2019-02-27 12:15] VITALS: BP 137/59
[2019-02-27] MEDS ORDERED: ceFAZolin 1GM/50ML 50 ML IV ONE (12:15)
[2019-02-27] MEDS ORDERED: ACCU-CHEK COMFORT CURVE STRIP VI ONE (12:15)
[2019-02-27] MEDS ORDERED: NITROGLYCERIN 0.4 MG SL TAB SL PRN (12:15)
[2019-02-27] MEDS ORDERED: MORPHINE SULF INJ 2 MG/ML SYRINGE 1ML IV PRN (12:15)
--- NOTE | 2019-02-27 12:15 | NUR ---
Admit to [facility] admitted to [facility] ambulatory from Dr Nowak's office scheduled for Open Heart Surgery tomorrow. Patient assisted to bed, connected to unit monitoring and weighed by bedscale. Patient awake and alert. No S/S of SOB or pain. Patient saturation 97% at room. See interventions for complete assessment. Patient oriented to Lizbet balderas RN, unit, room, bed, and unit policies regarding patient care and visiting hours. All questions and concerns addressed, patient verbalized understanding. Bed locked on low position, side rails up x2, bed alarms on at all times, call grier within reach. Instructed to call for needed assistance.
--- NOTE | 2019-02-27 12:15 | NUR ---
RT arm BP 137/59, LT arm BP 136/71
[2019-02-27 12:49] LABS: Basophils # (auto) 0 uL; Basophils % (auto) 0.7 % (0.0-2.0); Eosinophils # (auto) 0.1 uL; Eosinophils % (auto) 1.8 % (0.0-7.0); Hematocrit 42.3 % (41.0-53.0); Lymphocytes # (auto) 0.8 uL; Mean Corpuscular Hgb Conc. 33.2 g/dL (32.0-36.0); Mean Corpuscular Volume 99.5 fL (80.0-100.0); Monocytes # (auto) 0.5 uL; Monocytes % (auto) 9.2 % (0.0-12.0); Neutrophils # (auto) 4.5 uL; Neutrophils % (auto) 75.3 % (37.0-80.0); Nucleated Red Blood Cells % 0.1 %; Platelet Count (auto) 159 10^3/uL (140-450); Red Blood Cells 4.25 10^6/uL (4.5-5.90); Red Cell Distribution Width 15.6 % (11.8-14.3)
--- NOTE | 2019-02-27 12:57 | NUR ---
Dr Yañez at bedside, updated on patient's status. Patient seen and examined. Will carry out new orders.
[2019-02-27] MEDS ORDERED: LOSARTAN POTASSIUM 25 MG TAB PO ONE (13:00)
[2019-02-27] MEDS ORDERED: POTASSIUM CHL 20 Meq TABLET PO ONE (13:00)
[2019-02-27] MEDS ORDERED: FUROSEMIDE 40 MG/4 ML VIAL IV ONE (13:00)
[2019-02-27 13:04] LABS: INR 1.06 (0.9-1.15); Partial Thromboplastin Time 28.2 sec (23.64-32.05)
[2019-02-27 13:08] LABS: Albumin 4.1 g/dL (3.4-5.0); BUN/Creatinine Ratio 22.4; Calcium 9.3 mg/dL (8.5-10.1); Potassium 4.3 mmol/L (3.5-5.1)
[2019-02-27 13:12] LABS: Bilirubin, Total 0.8 mg/dL (0.2-1.0); Total Protein 7.9 g/dL (6.4-8.2)
--- NOTE | 2019-02-27 14:50 | NUR ---
IV insertion IV access obtained, via clean sterile technique by inserting 20 gauge catheter at RT hand after one attempt by Nathanael Vazquez RN. IV secured properly. No trauma to site. Patient tolerated procedure well.
--- NOTE | 2019-02-27 15:26 | NUR ---
Patient instructed and motivated on use of IS.
[2019-02-27 16:00] VITALS: BP_SYST 131; BP_SYST 134; BP_DIAS 59; BP_DIAS 60
--- NOTE | 2019-02-27 16:00 | NUR ---
RT arm BP 131/60, LT arm BP 134/59
--- NOTE | 2019-02-27 16:00 | NUR ---
Urine sample sent to lab
--- NOTE | 2019-02-27 16:00 | NUR ---
Patient able to do IS every hour up to 1000ml
[2019-02-27 16:31] LABS: Urine Bacteria NONE SEEN /hpf (None Seen); Urine Blood Negative /uL (Negative); Urine Hyaline Cast FEW /lpf (0 - 2); Urine Mucus FEW (None Seen); Urine Specific Gravity 1.009 (1.001-1.035); Urine WBC 1 /hpf (0 - 3)
[2019-02-27] MEDS: TAMSULOSIN HYDROCHLORIDE 0.4 MG CAP PO SCH (17:55)
--- NOTE | 2019-02-27 19:30 | NUR ---
Opening Shift Note Assumed care of patient, awake and alert. No S/S of distress/SOB or pain. VS stable. Full assessment done-refer interventions. Instructed on POC and to call for assist PRN, will continue to monitor for changes Q1hr and PRN. Patient is aware on the procedure tomorrow.Teachings on Open heart Surgery done. will let watch watch the Open heart Videos
[2019-02-27 20:00] VITALS: BP 120/46
--- NOTE | 2019-02-27 21:00 | NUR ---
Patient watching Open heart Videos
[2019-02-27] MEDS: MUPIROCIN 2% OINT 15gm or 22gm TOP SCH (21:41)
[2019-02-27] MEDS: FAMOTIDINE 20 MG TAB PO SCH (21:52)
[2019-02-27 22:00] VITALS: BP 135/51
[2019-02-27] MEDS ORDERED: ASCORBIC ACID 500 MG TAB PO ONE (22:00)
--- NOTE | 2019-02-27 22:00 | NUR ---
BM Patient had BM in the toilet
[2019-02-28] VITALS (52 sets, daily range): BP systolic 21–139; BP diastolic 6–66
[2019-02-28] MEDS ORDERED: CHLORHEXIDINE 4% TOPICAL soln 118ml TOP ONE (02:00)
--- NOTE | 2019-02-28 02:00 | NUR ---
PRE-OP BATH Hair clipped at the arms,chest, groin and legs. Underwear removed. Complete bed bath done. Patient was cleaned with CHG wash. Linens changed.
--- NOTE | 2019-02-28 03:00 | NUR ---
DESATURATION Patient's saturation drops to 80% on and off. Patient is resting Placed on NC at 2L/min - SPO2 98%
--- NOTE | 2019-02-28 04:00 | NUR ---
respiratory saturations 98% NC 1L/min
[2019-02-28 05:49] LABS: Basophils # (auto) 0 uL; Basophils % (auto) 0.8 % (0.0-2.0); Eosinophils # (auto) 0.2 uL; Eosinophils % (auto) 4.5 % (0.0-7.0); Hematocrit 42.7 % (41.0-53.0); Hemoglobin 14.5 g/dL (13.5-17.5); Lymphocytes # (auto) 0.9 uL; Lymphocytes % (auto) 22.6 % (10.0-50.0); Mean Corpuscular Hemoglobin 33.5 pg (28.0-32.0); Mean Corpuscular Hgb Conc. 33.9 g/dL (32.0-36.0); Mean Corpuscular Volume 98.8 fL (80.0-100.0); Monocytes # (auto) 0.6 uL; Monocytes % (auto) 15.2 % (0.0-12.0); Neutrophils # (auto) 2.2 uL; Neutrophils % (auto) 56.9 % (37.0-80.0); Nucleated Red Blood Cells % 0.1 %; Platelet Count (auto) 156 10^3/uL (140-450); Red Blood Cells 4.32 10^6/uL (4.5-5.90); Red Cell Distribution Width 15.7 % (11.8-14.3); White Blood Cell 3.9 10^3/uL (4.4-10.8)
[2019-02-28] MEDS ORDERED: CHLORHEXIDINE 0.12% ORAL rinse 473ML MT ONE (06:00)
[2019-02-28 06:17] LABS: BUN/Creatinine Ratio 19.4; Potassium 3.7 mmol/L (3.5-5.1)
[2019-02-28] MEDS ORDERED: NITROGLYCERIN 50MG/250ML 250 ML IV ONE (06:28)
[2019-02-28] MEDS ORDERED: NEOMYCIN-BACITRACIN-POLYM 15GM TOP OINT TOP ONE ×2 (06:30→06:57)
[2019-02-28] MEDS ORDERED: HEPARIN 1,000 UNITS/ml 1ML VIAL ONE ×2 (06:30→06:57)
[2019-02-28] MEDS ORDERED: PAPAVERINE HCL 60 MG/2 ML 2ML VIAL ONE ×2 (06:30→06:57)
[2019-02-28] MEDS ORDERED: BACITRACIN INJ 50000 UNIT VIAL ONE ×2 (06:31→13:01)
[2019-02-28] MEDS: MUPIROCIN 2% OINT 15gm or 22gm TOP SCH ×2 (06:33→21:32)
--- NOTE | 2019-02-28 06:40 | NUR ---
PATIENT BROUGHT TO OR INFORMED RN JUAN ABOUT THE DIFFERENCE IN BP AND LAB RESULTS NOT REVIEWED YET
--- NOTE | 2019-02-28 06:50 | NUR ---
FAMILY SHOWED PATIENT'S FAMILY WHERE ICU IS AND WAITING AREA, VISITING POLICIES
[2019-02-28] MEDS ORDERED: ceFAZolin 1GM/50ML 50 ML IV ONE (06:52)
[2019-02-28] MEDS ORDERED: SUCCINYLCHOLINE CHLORIDE 20 MG/ML 10ML VIAL IV ONE (06:57)
[2019-02-28] MEDS ORDERED: ETOMIDATE (2MG/ML) 20ML VIAL IV ONE (07:05)
[2019-02-28] MEDS ORDERED: fentaNYL CITRATE 10 ML ONE (07:05)
[2019-02-28] MEDS ORDERED: ROCURONIUM 10MG/ML 10ML VIAL IV ONE (07:05)
[2019-02-28] MEDS ORDERED: MIDAZOLAM HCL 1MG/1ML-2 ML VIAL ONE ×2 (07:06→07:07)
[2019-02-28] MEDS ORDERED: MANNITOL 20 % (20GM/100ML) 500 ML IV ONE (07:54)
[2019-02-28] MEDS ORDERED: ALBUMIN 5% 250 ML IV ONE ×2 (07:54→22:45)
[2019-02-28] MEDS ORDERED: [UNRECOGNIZED DRUG - OTHER] INJ ONE (07:54)
[2019-02-28] MEDS ORDERED: MANNITOL FTV 25% 12.5 GM/50 ML 100 ML IV ONE (07:54)
[2019-02-28] MEDS ORDERED: ALBUMIN 25% 400 ML IV ONE (07:54)
[2019-02-28] MEDS ORDERED: AMINOCAPROIC ACID 5 GM in SODIUM CHL 0.9% 250 ML IV ONE (08:00)
[2019-02-28] MEDS ORDERED: AMINOCAPROIC ACID 10 GM in SODIUM CHL 0.9% 100 ML IV ONE (08:00)
[2019-02-28] MEDS ORDERED: EPINEPHrine HCL 4 MG in D5W 5% 250 ML IV ONE (08:00)
[2019-02-28] MEDS ORDERED: InsuLIN R (HUMAN) 100 UNITS in SODIUM CHL 0.9% 99 ML IV ONE (08:00)
[2019-02-28] MEDS ORDERED: PHENYLEPHRINE INJ 20 MG in SODIUM CHL 0.9% 250 ML IV ONE (08:00)
[2019-02-28] MEDS ORDERED: NOREPINEPHRINE 8 MG/250ML KIT 250 ML IV ONE (08:00)
[2019-02-28] MEDS ORDERED: HEPARIN 30000 UNITS in SODIUM CHLORIDE 0.9% 1000 ML IV ONE (08:00)
[2019-02-28] MEDS: FAMOTIDINE 20 MG TAB PO SCH ×2 (09:36→22:00)
[2019-02-28] MEDS ORDERED: LOSARTAN POTASSIUM 25 MG TAB PO SCH (10:00)
[2019-02-28] MEDS ORDERED: MAGNESIUM SULF SDV 50% 4MEQ/ML-2 ML VIAL IV ONE (10:44)
[2019-02-28] MEDS ORDERED: ADENOSINE 6 MG/2 ML INJ IV ONE (10:44)
[2019-02-28] MEDS ORDERED: MILRINONE 20MG/100ML 100 ML IV ONE (12:20)
[2019-02-28] MEDS ORDERED: ceFAZolin 1GM VL ONE ×2 (13:16→13:42)
[2019-02-28] MEDS ORDERED: PROTAMINE SULFATE 250 MG/25 ML VL IV ONE (13:16)
[2019-02-28] MEDS ORDERED: PROPOFOL 100 ML IV ONE ×2 (13:16→13:42)
[2019-02-28] MEDS ORDERED: CALCIUM CHLOR(10%) 100MG/ML 10ML SYRINGE IV ONE (13:16)
[2019-02-28 13:23] LABS: Basophils # (auto) 0 uL; Basophils % (auto) 0.1 % (0.0-2.0); Eosinophils # (auto) 0 uL; Eosinophils % (auto) 0.3 % (0.0-7.0); Hematocrit 25.8 % (41.0-53.0); Hemoglobin 8.7 g/dL (13.5-17.5); Lymphocytes # (auto) 0.7 uL; Lymphocytes % (auto) 7.4 % (10.0-50.0); Mean Corpuscular Hemoglobin 33.7 pg (28.0-32.0); Mean Corpuscular Hgb Conc. 33.9 g/dL (32.0-36.0); Mean Corpuscular Volume 99.4 fL (80.0-100.0); Monocytes # (auto) 0.1 uL; Monocytes % (auto) 1.1 % (0.0-12.0); Neutrophils # (auto) 8.1 uL; Neutrophils % (auto) 91.1 % (37.0-80.0); Platelet Count (auto) 87 10^3/uL (140-450); Red Blood Cells 2.59 10^6/uL (4.5-5.90); White Blood Cell 8.9 10^3/uL (4.4-10.8)
[2019-02-28 13:37] LABS: INR 1.87 (0.9-1.15); Partial Thromboplastin Time 38.7 sec (23.64-32.05)
[2019-02-28 13:46] LABS: Albumin 3.5 g/dL (3.4-5.0); BUN/Creatinine Ratio 17.2; Calcium 10.3 mg/dL (8.5-10.1); Potassium 4.1 mmol/L (3.5-5.1)
[2019-02-28 13:47] LABS: Total Protein 5.3 g/dL (6.4-8.2)
[2019-02-28] MEDS: INSULIN DRIP 100 UNIT/100ML 100 ML IV SCH (14:03)
[2019-02-28] MEDS ORDERED: SODIUM CHLORIDE 0.9% 200 ML IV PRN (14:03)
[2019-02-28] MEDS ORDERED: NITROGLYCERIN 50MG/250ML 250 ML IV SCH (14:03)
[2019-02-28] MEDS ORDERED: D5W/SOD CHL 0.45% 1,000 ML IV SCH (14:03)
[2019-02-28] MEDS ORDERED: AMIODARONE HCL 900 MG in DEXTROSE 500 ML IV SCH (14:13)
[2019-02-28] MEDS ORDERED: ALBUMIN 25% 250 ML IV PRN (14:15)
[2019-02-28] MEDS ORDERED: ONDANSETRON HCL 4 MG/2 ML VIAL IV PRN (14:15)
[2019-02-28] MEDS ORDERED: MAGNESIUM SULFATE 1GM/100ML 100 ML IV PRN (14:15)
[2019-02-28] MEDS ORDERED: ZOLPIDEM TARTRATE 5 MG TAB PO PRN (14:15)
[2019-02-28] MEDS ORDERED: AMIODARONE HCL 150 MG in D5W 5% 100 ML IV ONE (14:15)
[2019-02-28] MEDS ORDERED: DEXTROSE (50%) 50ML SYRG IV PRN (14:15)
[2019-02-28] MEDS ORDERED: CALCIUM GLUC 4.65meq/50ml D5AE 50 ML IV PRN (14:15)
[2019-02-28] MEDS ORDERED: SODIUM BICARBONATE 8.4% INJ 50ML SYRINGE IV PRN (14:15)
--- NOTE | 2019-02-28 14:15 | NUR ---
DR PIEDRA AND DR ADAMS (ANESTHESIOLOGIST) AT BEDSIDE UPDATED ON CURRENT STATUS AND NEW ORDERS RECEIVED
[2019-02-28] MEDS: PHENYLEPHRINE IV 250 ML IV SCH (14:20)
[2019-02-28] MEDS: PROPOFOL 100 ML IV SCH ×2 (14:20→22:49)
[2019-02-28] MEDS: NOREPINEPHRINE 8 MG/250ML KIT 250 ML IV SCH (14:20)
[2019-02-28] MEDS: MILRINONE 20MG/100ML 100 ML IV SCH (14:20)
[2019-02-28] MEDS: SODIUM CHLORIDE 0.9% 500 ML IV SCH (14:20)
[2019-02-28] MEDS: NICARDIPINE 25MG/250ML BAG KIT 250 ML IV SCH ×2 (14:20→19:48)
--- NOTE | 2019-02-28 14:20 | NUR ---
Pt. arrived from [facility] accompanied by cardiothoracic team on hemodynamic monitoring. Report received from anesthesiologist and Dr. Nowak. Surgery: AORTIC VALVE REPLACEMENT Lines: PA catheter around 56 cm at the Hub of the Dual lumen [place] to the LEFT SUBCLAVIAN [place] to RIGHT FEMORAL artery Chest Tube: 2 MEDIASTINAL CHEST TUBES PRESENT, BLOODY DRAINAGE Gambino: PRESENT AND DRAINING HEMATURIA ET tube:8.0 , 24 lip line Gtts: PROPOFOL, LEVOPHED, INSULIN, MILRINONE- SEE IV SPREADSHEET Hemodynamics: CO/CI: 3.9/2.3 HR: 90 Assisted BP: 122/57 MAP: 79 CVP: 5 PAP: 25/13 SVR: 1105 SPO2: 99% Immediate Post- Op recovery Pt arrived to ICU hemodynamically stable
[2019-02-28] MEDS ORDERED: phytonadione 2 ML ONE (14:26)
--- NOTE | 2019-02-28 14:26 | NUR ---
CHEST TUBE DRAINAGE INCREASING, COAGULATION LABS OUTSIDE NORMAL RANGES ORDERS RECEIVED TO ADMINISTER VITAMIN K, IV AND SUBQ.
[2019-02-28] MEDS ORDERED: PHYTONADIONE (VIT K)10 MG/ML 1ML VIAL SUBCUT ONE (15:00)
[2019-02-28] MEDS: ACCU-CHEK COMFORT CURVE STRIP VI SCH ×9 (15:00→23:03)
[2019-02-28] MEDS ORDERED: PHYTONADIONE (VIT K)10 MG/ML 1ML VIAL IV ONE (15:00)
[2019-02-28] MEDS ORDERED: CALCIUM CHL 100MG/ML 1,000 MG in D5W 5% 100 ML IV ONE (15:15)
--- NOTE | 2019-02-28 15:45 | NUR ---
PATIENTS AND DAUGHTERS AT BEDSIDE UPDATED ON CURRENT STATUS AND ADDRESSED CONCERNS.
[2019-02-28] MEDS ORDERED: COAGULATION FACTOR VIIA (RECOM 5 MG INJ IV ONE (16:30)
[2019-02-28] MEDS: MORPHINE SULFATE 4 MG/ML SYR/VIAL IV PRN (16:30)
[2019-02-28] MEDS ORDERED: COAGULATION FACTOR VIIA (RECOM 2 MG INJ IV ONE (16:45)
[2019-02-28] MEDS ORDERED: [UNRECOGNIZED DRUG - OTHER] IV ONE (16:45)
[2019-02-28] MEDS ORDERED: fentaNYL Drip 2500mCg/250mlNS 250 ML IV ONE (16:46)
[2019-02-28 16:55] LABS: Basophils # (auto) 0 uL; Basophils % (auto) 0.2 % (0.0-2.0); Eosinophils # (auto) 0 uL; Eosinophils % (auto) 0.1 % (0.0-7.0); Hematocrit 28.6 % (41.0-53.0); Hemoglobin 9.6 g/dL (13.5-17.5); Lymphocytes # (auto) 0.3 uL; Mean Corpuscular Hemoglobin 33.4 pg (28.0-32.0); Mean Corpuscular Hgb Conc. 33.5 g/dL (32.0-36.0); Mean Corpuscular Volume 99.6 fL (80.0-100.0); Monocytes # (auto) 0.6 uL; Neutrophils # (auto) 8.4 uL; Neutrophils % (auto) 90.7 % (37.0-80.0); Platelet Count (auto) 117 10^3/uL (140-450); Red Blood Cells 2.87 10^6/uL (4.5-5.90); Red Cell Distribution Width 15.3 % (11.8-14.3); White Blood Cell 9.3 10^3/uL (4.4-10.8)
--- NOTE | 2019-02-28 16:56 | NUR ---
NOVASEVEN ADMINISTERED ORDERED BY ANESTHESIOLOGIST, DR ADAMS.
--- NOTE | 2019-02-28 17:06 | NUR ---
RT NOTE RECEIVED PT INTUBATED AND ON VENT V18 ON STATED SETTINGS. VENT IS PLUGGED TO RED OUTLET. ALARMS ARE ON AND AUDIBLE AT NURSES STATION. AMBU BAG AT BEDSIDE AND CONNECTED TO O2 SOURCE. 8.0 ETT IS SECURED WITH ANCHORFAST AT 24 CM TO THE ORAL RIGHT. BILATERAL BS ARE CLEAR. PT WAS SUCTIONED FOR SMALL RETURN. PT HAS 2 CHEST TUBES NOTED, 1 LEFT AND 1 MEDIASTINAL. PT HAS A RIGHT FEMORAL ART-LINE NOTED. JEREMIAH MILNER AND DR PIEDRA AT BEDSIDE. PT TEMP 97.4. CONT ORDERED. POX 100% HEMODYNAMICS: CVP9, CO/CI 5.7/3.3, SVR 977, PA 32/6 OUTPUTS: CHEST TUBE 280, URINE 28 Addendum: 02/28/19 at 1953 by Shikha Butler RT Amended: Links added.
[2019-02-28] MEDS ORDERED: FUROSEMIDE 20 MG/2 ML VIAL ONE (17:11)
--- NOTE | 2019-02-28 17:20 | NUR ---
DECREASED URINE OUTPUT/ IRRIGATED PHAM CATHETER IRRIGATED WITH 60CC OF STERILE WATER AND NOTED LEV BLOOD AND CLOTS. URINE STARTED TO DRAINING TO PHAM BAG. WILL CONTINUE TO MONITOR
--- NOTE | 2019-02-28 17:25 | NUR ---
RT NOTE TIDAL VOLUME CHANGED TO 750 PER VERBAL ORDER FROM DR PIEDRA. Addendum: 02/28/19 at 3 by Shikha Butler RT Amended: Links added.
[2019-02-28] MEDS: ceFAZolin 1GM 2 GM in D5W 5% 100 ML IV SCH (18:00)
[2019-02-28] MEDS: TAMSULOSIN HYDROCHLORIDE 0.4 MG CAP PO SCH (18:00)
--- NOTE | 2019-02-28 18:02 | NUR ---
RT NOTE ROUTINE VENT CHECK DONE. PT INTUBATED AND ON VENT V18 ON STATED SETTINGS. VENT IS PLUGGED TO RED OUTLET. ALARMS ARE ON AND AUDIBLE AT NURSES STATION. AMBU BAG AT BEDSIDE AND CONNECTED TO O2 SOURCE. 8.0 ETT IS SECURED WITH ANCHORFAST AT 24 CM TO THE ORAL RIGHT. BILATERAL BS ARE CLEAR. HHN GIVEN INLINE WITH 2.5 MG ALBUTEROL AND 0.5 MG ATROVENT WITHOUT ADVERSE REACTION NOTED. PT HAS 2 CHEST TUBES NOTED, 1 LEFT AND 1 MEDIASTINAL. PT HAS A RIGHT FEMORAL ART-LINE NOTED. JEREMIAH MILNER AT BEDSIDE. PT TEMP 98.6. CO2 28. CONT ORDERED. POX 100% HEMODYNAMICS: CVP 4, CO/CI 3.8/2.2, SVR 1538, PA 31/03 OUTPUTS: CHEST TUBE 210, URINE 510 Addendum: 02/28/19 at 1999 by Shikha Butler RT Amended: Links added.
[2019-02-28] MEDS: ALBUTEROL SULF 2.5 MG/0.5ML(0.5%) NEB SOLN NEB SCH ×2 (18:16→22:03)
[2019-02-28] MEDS: IPRATROPIUM BROM 0.5 MG/2.5ML INH SOL NEB SCH ×2 (18:16→22:03)
--- NOTE | 2019-02-28 19:00 | NUR ---
MULTIPLE BLOOD PRODUCTS GIVEN THROUGHOUT SHIFT FOR HEMODYNAMIC STABILITY- SEE TRANSFUSION HISTORY.
--- NOTE | 2019-02-28 19:00 | NUR ---
MD Dr. Nowak ordered to keep BP 90-120 mmHg Titrate Levophed by 1 mcg Do labs after FFP and call him for results
--- NOTE | 2019-02-28 19:10 | NUR ---
PATIENTS CALLED FOR UPDATE PROVIDED PASSWORD, UPDATED ON CURRENT STATUS AND PLAN OF CARE.
[2019-02-28] MEDS ORDERED: fentaNYL Drip 2500mCg/250mlNS 250 ML IV SCH (19:13)
--- NOTE | 2019-02-28 19:14 | NUR ---
RT NOTE ROUTINE VENT CHECK DONE. PT INTUBATED AND ON VENT V18 ON STATED SETTINGS. VENT IS PLUGGED TO RED OUTLET. ALARMS ARE ON AND AUDIBLE AT NURSES STATION. AMBU BAG AT BEDSIDE AND CONNECTED TO O2 SOURCE. 8.0 ETT IS SECURED WITH ANCHORFAST AT 24 CM TO THE ORAL RIGHT. PT HAS 2 CHEST TUBES NOTED, 1 LEFT AND 1 MEDIASTINAL. PT HAS A RIGHT FEMORAL ART-LINE NOTED. RN ANNIA AND YOU AT BEDSIDE. PT TEMP 99.2. CO2 26. CONT ORDERED. POX 100% HEMODYNAMICS: CVP 4, CO/CI 3.1/2.8, SVR 1518, PA 25/12 OUTPUTS: CHEST TUBE 30, URINE 420 Addendum: 02/28/19 at 2002 by Shikha Butler RT Amended: Links added.
--- NOTE | 2019-02-28 19:30 | NUR ---
OPEN NOTES Assumed care of patient. Report received from JEREMIAH Leon. Patient had open Heart surgery today. Sedated with IV Propofol and Fentanyl - refer IV spreadsheet for titrations. Pupils 1mm sluggish, no limb movement noted, hypoactive cough and gag. Intubated with ETT size 8.0, LM 23cm AC rate 12, TV 750, PEEP 7, FIO2 50% - as per Dr. Delacruz to keep same settings until he come and see patient tomorrow. Chest tubes x 2 mediastinal with bloody output still, drainage was lesser. HR 69 V paced, BP 108/55 mmHg, PA 24/11,CCI 1.9/ INSURANCE ATTORNEY 3.2, SVO2 35 ( As per JEREMIAH Leon, Dr. Nowak noted an was ok with it) CVP 4 With IV Levophed at 1mcg/min, Milrinone at 0.1 mcg/kg/min, NTG at 5mcg/min OGT in placed - clamped, No bowel sounds heard With ongoing IV Insulin drip Gambino catheter in placed with bloody output IV lines: Left subclavian [place] Kofi catheter at approximately 55cm at the hub - dressing dry and intact Right hand G20 - patent and intact Full assessment - refer interventions
[2019-02-28] MEDS: VANCOMYCIN 1GM/250ML 250 ML IV SCH (19:35)
[2019-02-28] MEDS: AMIODARONE HCL 900 MG in DEXTROSE 500 ML IV SCH (20:13)
--- NOTE | 2019-02-28 20:18 | NUR ---
RT NOTE ROUTINE VENT CHECK DONE. PT INTUBATED AND ON VENT V18 ON STATED SETTINGS. VENT IS PLUGGED TO RED OUTLET. ALARMS ARE ON AND AUDIBLE AT NURSES STATION. AMBU BAG AT BEDSIDE AND CONNECTED TO O2 SOURCE. 8.0 ETT IS SECURED WITH ANCHORFAST AT 24 CM TO THE ORAL RIGHT. PT HAS 2 CHEST TUBES NOTED, 1 LEFT AND 1 MEDIASTINAL. PT HAS A RIGHT FEMORAL ART-LINE NOTED. JEREMIAH MILNER AND YOU AT BEDSIDE. PT TEMP 99.2. CO2 28. CONT ORDERED. POX 100% HEMODYNAMICS: CVP 4, CO/CI 3.7/2.1, SVR 1685, PA 31/03 OUTPUTS: CHEST TUBE 20, URINE 350 Addendum: 02/28/19 at 2051 by Shikha Butler RT Amended: Links added.
--- NOTE | 2019-02-28 21:00 | NUR ---
HEMODYNAMICS CVP 4, BP 90/50 MMHG, PA 23/9 URINE OUTPUT FOR THE LAST TWO HOURS 350 AND 275MLS STILL HEMATURIA GIVE GIVE ALBUMIN
--- NOTE | 2019-02-28 21:13 | NUR ---
RT NOTE ROUTINE VENT CHECK DONE. PT INTUBATED AND ON VENT V18 ON STATED SETTINGS. VENT IS PLUGGED TO RED OUTLET. ALARMS ARE ON AND AUDIBLE AT NURSES STATION. AMBU BAG AT BEDSIDE AND CONNECTED TO O2 SOURCE. 8.0 ETT IS SECURED WITH ANCHORFAST AT 24 CM TO THE ORAL RIGHT. PT HAS 2 CHEST TUBES NOTED, 1 LEFT AND 1 MEDIASTINAL. PT HAS A RIGHT FEMORAL ART-LINE NOTED. PT WAS SUCTIONED FOR NO RETURN. JEREMIAH ORTA AT BEDSIDE. PT TEMP 99.0. CO2 29. CONT ORDERED. POX 100% HEMODYNAMICS: CVP 4, CO/CI 3.4/2.0, SVR 1511, PA 21/9 OUTPUTS: CHEST TUBE 10, URINE 275 Addendum: 02/28/19 at 2125 by Shikha Butler RT Amended: Links added.
--- NOTE | 2019-02-28 21:17 | NUR ---
DR. PIEDRA CALLED ,UPDATED HIM OF PATIENT'S CONDITION AND PARAMETERS ORDERED TO INCREASED IV FLUIDS TO 150ML/HR Addendum: 02/28/19 at 2118 by Carlita Neri RN INFORMED OF CHEST TUBE AND URINE OUTPUT
[2019-02-28] MEDS ORDERED: SODIUM CHLORIDE 0.9% 1,000 ML IV SCH (21:30)
[2019-02-28] MEDS: CHLORHEXIDINE 0.12% ORAL rinse 473ML MT SCH (21:42)
[2019-02-28] MEDS ORDERED: ALBUMIN 5% 250 ML IV PRN (21:45)
[2019-02-28 21:58] LABS: Basophils # (auto) 0 uL; Basophils % (auto) 0.1 % (0.0-2.0); Eosinophils # (auto) 0 uL; Eosinophils % (auto) 0.2 % (0.0-7.0); Hematocrit 25.8 % (41.0-53.0); Hemoglobin 8.9 g/dL (13.5-17.5); Lymphocytes # (auto) 0.1 uL; Lymphocytes % (auto) 3.1 % (10.0-50.0); Mean Corpuscular Hemoglobin 32.6 pg (28.0-32.0); Mean Corpuscular Hgb Conc. 34.6 g/dL (32.0-36.0); Mean Corpuscular Volume 94.1 fL (80.0-100.0); Monocytes # (auto) 0 uL; Monocytes % (auto) 1.3 % (0.0-12.0); Neutrophils # (auto) 2.1 uL; Neutrophils % (auto) 95.3 % (37.0-80.0); Platelet Count (auto) 108 10^3/uL (140-450); Red Blood Cells 2.74 10^6/uL (4.5-5.90); Red Cell Distribution Width 17.1 % (11.8-14.3); White Blood Cell 2.2 10^3/uL (4.4-10.8)
[2019-02-28 21:59] LABS: BUN/Creatinine Ratio 14.8; Calcium 10.7 mg/dL (8.5-10.1); Magnesium 3.2 mg/dL (1.6-2.6)
[2019-02-28 22:08] LABS: Potassium 2.9 mmol/L (3.5-5.1)
--- NOTE | 2019-02-28 22:11 | NUR ---
RT NOTE ROUTINE VENT CHECK DONE. PT INTUBATED AND ON VENT V18 ON STATED SETTINGS. VENT IS PLUGGED TO RED OUTLET. ALARMS ARE ON AND AUDIBLE AT NURSES STATION. AMBU BAG AT BEDSIDE AND CONNECTED TO O2 SOURCE. 8.0 ETT IS SECURED WITH ANCHORFAST AT 24 CM TO THE ORAL RIGHT. PT HAS 2 CHEST TUBES NOTED, 1 LEFT AND 1 MEDIASTINAL. PT HAS A RIGHT FEMORAL ART-LINE NOTED. PT WAS SUCTIONED FOR NO RETURN. BS ARE CTA. HHN GIVEN INLINE WITH 2.5 MG ALBUTEROL AND 0.5 MG ATROVENT WITHOUT ADVERSE REACTION NOTED. JEREMIAH ORTA AT BEDSIDE. PT TEMP 98.9. CO2 29. CONT ORDERED. POX 100% HEMODYNAMICS: CVP 4, CO/CI 3.4/2.0, SVR 1521, PA 23/12 OUTPUTS: CHEST TUBE 10, URINE 225 Addendum: 02/28/19 at 2240 by Shikha Butler RT Amended: Links added.
[2019-02-28] MEDS: POTASSIUM CHL 20MEQ/100ML 100 ML IV PRN ×2 (22:12→23:14)
--- NOTE | 2019-02-28 22:22 | NUR ---
ANESTHESIOLOGIST CALLED TALKED TO DR. WOLFE INFORMED OF LAB RESULTS (CHEMISTRY) POTASSIUM 2.9, PHOS 1.0 HEMATOLOGY NOT BACK YET URINE STILL HEMATURIC ABOUT 200-300ML/HR TELEPHONE ORDER RECEIVED: 1. KPHOS 30MMOL 2. K RIDER 40MEQ 3. IF HCT <28, DO PT/PTT WITH FIBRINOGEN LEVELS
[2019-02-28] MEDS ORDERED: POTASSIUM PHOSPHATE 44 MEQ in D5W 5% 250 ML IV ONE (22:30)
--- NOTE | 2019-02-28 22:42 | NUR ---
CALLED MD Called Dr. Nowak to give an update on patient's condition. Informed of patient's lab results and Dr. Ruiz's orders. Noted of parameters CVP 5, BP 97/46 mmHg, PA 22/7 mmHg, urine still bloody and chest tube amounts. Awaiting PT/PTT results. All noted. He agreed on the anesthesiologist orders on potassium and phosphorus replacement. Order received as: D5 1/2NS at 150mls/hr, Albumin 5% 250mls to run at 50ml/hr x 1 bottle.
[2019-02-28] MEDS: D5W/SOD CHL 0.45% 1,000 ML IV SCH (22:56)
--- NOTE | 2019-02-28 23:00 | NUR ---
BLOOD BANK LAB STAFF CALLED TO INFORM THAT THERE IS NOT ENOUGH STOCK OF PLATELETS IN THE BLOOD BANK. IF NEEDED TO TRANSFUSE TO CALL BACK AGAIN
[2019-02-28 23:01] LABS: Fibrinogen 264 mg/dL (177-375); INR < 0.93 (0.9-1.15); Partial Thromboplastin Time 32.4 sec (23.64-32.05)
--- NOTE | 2019-02-28 23:27 | NUR ---
RT NOTE ROUTINE VENT CHECK DONE. PT INTUBATED AND ON VENT V18 ON STATED SETTINGS. VENT IS PLUGGED TO RED OUTLET. ALARMS ARE ON AND AUDIBLE AT NURSES STATION. AMBU BAG AT BEDSIDE AND CONNECTED TO O2 SOURCE. 8.0 ETT IS SECURED WITH ANCHORFAST AT 24 CM TO THE ORAL RIGHT. PT HAS 2 CHEST TUBES NOTED, 1 LEFT AND 1 MEDIASTINAL. PT HAS A RIGHT FEMORAL ART-LINE NOTED. JEREMIAH ORTA AT BEDSIDE. PT TEMP 98.7. CO2 28. CONT ORDERED. POX 100% HEMODYNAMICS: CVP 6, CO/CI 3.7/2.2, SVR 1244, PA 24/ OUTPUTS: CHEST TUBE 10, URINE 120 Addendum: 03/01/19 at 0020 by Shikha Butler RT Amended: Links added.
[2019-03-01] VITALS (110 sets, daily range): BP systolic 21–205; BP diastolic 2–192
[2019-03-01] MEDS: NICARDIPINE 25MG/250ML BAG KIT 250 ML IV SCH ×6 (00:03→23:44)
[2019-03-01] MEDS: ACCU-CHEK COMFORT CURVE STRIP VI SCH ×17 (00:03→23:22)
--- NOTE | 2019-03-01 00:05 | NUR ---
RT NOTE ROUTINE VENT CHECK DONE. PT INTUBATED AND ON VENT V18 ON STATED SETTINGS. VENT IS PLUGGED TO RED OUTLET. ALARMS ARE ON AND AUDIBLE AT NURSES STATION. AMBU BAG AT BEDSIDE AND CONNECTED TO O2 SOURCE. 8.0 ETT IS SECURED WITH ANCHORFAST AT 24 CM TO THE ORAL RIGHT. PT HAS 2 CHEST TUBES NOTED, 1 LEFT AND 1 MEDIASTINAL. PT HAS A RIGHT FEMORAL ART-LINE NOTED. JEREMIAH ORTA AT BEDSIDE. PT TEMP 98.4. CO2 28. CONT ORDERED. POX 100% HEMODYNAMICS: CVP 6, CO/CI 3.8/2.2, SVR 1269, PA 25/ OUTPUTS: CHEST TUBE 10, URINE 125 Addendum: 03/01/19 at 0020 by Shikha Butler RT Amended: Links added.
--- NOTE | 2019-03-01 01:18 | NUR ---
RT NOTE ROUTINE VENT CHECK DONE. PT INTUBATED AND ON VENT V18 ON STATED SETTINGS. VENT IS PLUGGED TO RED OUTLET. ALARMS ARE ON AND AUDIBLE AT NURSES STATION. AMBU BAG AT BEDSIDE AND CONNECTED TO O2 SOURCE. 8.0 ETT IS SECURED WITH ANCHORFAST AT 24 CM TO THE ORAL RIGHT. PT HAS 2 CHEST TUBES NOTED, 1 LEFT AND 1 MEDIASTINAL. PT HAS A RIGHT FEMORAL ART-LINE NOTED. JEREMIAH ORTA AT BEDSIDE. PT TEMP 98.4. CO2 28. CONT ORDERED. POX 100% HEMODYNAMICS: CVP 6, CO/CI 3.9/2.3, SVR 1267, PA 24/7 OUTPUTS: CHEST TUBE 20, URINE 175 Addendum: 03/01/19 at 0129 by Shikha Butler RT Amended: Links added.
[2019-03-01] MEDS: ceFAZolin 1GM 2 GM in D5W 5% 100 ML IV SCH ×4 (01:26→23:21)
--- NOTE | 2019-03-01 01:30 | NUR ---
RUN OF VTACH Patient had a run of V Tach 21 complexes then convert back to paced rhythm BP 102/46 mmHg strip printed out will continue to monitor
--- NOTE | 2019-03-01 02:10 | NUR ---
RT NOTE ROUTINE VENT CHECK DONE. PT INTUBATED AND ON VENT V18 ON STATED SETTINGS. VENT IS PLUGGED TO RED OUTLET. ALARMS ARE ON AND AUDIBLE AT NURSES STATION. AMBU BAG AT BEDSIDE AND CONNECTED TO O2 SOURCE. 8.0 ETT IS SECURED WITH ANCHORFAST AT 24 CM TO THE ORAL RIGHT. PT HAS 2 CHEST TUBES NOTED, 1 LEFT AND 1 MEDIASTINAL. PT HAS A RIGHT FEMORAL ART-LINE NOTED. JEREMIAH ORTA AT BEDSIDE. PT TEMP 98.4. CO2 28. CONT ORDERED. POX 100% HEMODYNAMICS: CVP 5, CO/CI 3.7/2.1, SVR 1151, PA 21/9 OUTPUTS: CHEST TUBE 20, URINE 100 Addendum: 03/01/19 at 0232 by Shikha Butler RT Amended: Links added.
--- NOTE | 2019-03-01 03:50 | NUR ---
chest tube dressing changed
[2019-03-01 03:58] LABS: Basophils # (auto) 0 uL; Basophils % (auto) 0.1 % (0.0-2.0); Eosinophils # (auto) 0 uL; Hemoglobin 7.9 g/dL (13.5-17.5); Lymphocytes # (auto) 0.1 uL; Monocytes # (auto) 0.3 uL
[2019-03-01 04:00] LABS: Hematocrit 22.4 % (41.0-53.0); Lymphocytes % (auto) 2.5 % (10.0-50.0); Mean Corpuscular Hemoglobin 33.2 pg (28.0-32.0); Mean Corpuscular Hgb Conc. 35.5 g/dL (32.0-36.0); Mean Corpuscular Volume 93.6 fL (80.0-100.0); Neutrophils # (auto) 5.4 uL; Neutrophils % (auto) 92.4 % (37.0-80.0); Platelet Count (auto) 88 10^3/uL (140-450); Red Blood Cells 2.39 10^6/uL (4.5-5.90); Red Cell Distribution Width 17.3 % (11.8-14.3); White Blood Cell 5.9 10^3/uL (4.4-10.8)
[2019-03-01] MEDS: MILRINONE 20MG/100ML 100 ML IV SCH ×2 (04:13→18:23)
--- NOTE | 2019-03-01 04:20 | NUR ---
RT NOTE ROUTINE VENT CHECK DONE. PT INTUBATED AND ON VENT V18 ON STATED SETTINGS. VENT IS PLUGGED TO RED OUTLET. ALARMS ARE ON AND AUDIBLE AT NURSES STATION. AMBU BAG AT BEDSIDE AND CONNECTED TO O2 SOURCE. 8.0 ETT IS SECURED WITH ANCHORFAST AT 24 CM TO THE ORAL RIGHT. PT HAS 2 CHEST TUBES NOTED, 1 LEFT AND 1 MEDIASTINAL. PT HAS A RIGHT FEMORAL ART-LINE NOTED. HME, T-PIECE AND INLINE SUCTION CHANGED WITHOUT INCIDENT. JEREMIAH ORTA AT BEDSIDE. PT TEMP 97.8. CO2 28. CONT ORDERED. POX 98% HEMODYNAMICS: CVP 6, CO/CI 4.7/2.7, SVR 1022, PA 23/7 OUTPUTS: CHEST TUBE 10, URINE 75 Addendum: 03/01/19 at 0455 by Shikha Butler RT Amended: Links added.
[2019-03-01 04:24] LABS: BUN/Creatinine Ratio 14.2; Magnesium 2.9 mg/dL (1.6-2.6); Phosphorus 2.1 mg/dL (2.5-4.90); Potassium 3.4 mmol/L (3.5-5.1)
--- NOTE | 2019-03-01 04:27 | NUR ---
RT NOTE MORNING ABG DRAWN. RESULTS GIVEN TO JEREMIAH ORTA Addendum: 03/01/19 at 0455 by Shikha Butler RT Amended: Links added.
--- NOTE | 2019-03-01 04:50 | NUR ---
RT NOTE FIO2 TITRATED TO 35%, JEREMIAH ORTA AT BEDSIDE AND IS AWARE Addendum: 03/01/19 at 0455 by Shikha Butler RT Amended: Links added.
--- NOTE | 2019-03-01 05:00 | NUR ---
HGB LOW PATIENT'S HGB 7.9 STILL HAS BLOODY URINE WILL TRANSFUSE PC
[2019-03-01 05:13] LABS: INR 0.99 (0.9-1.15); Partial Thromboplastin Time 28.3 sec (23.64-32.05)
--- NOTE | 2019-03-01 05:33 | NUR ---
OUTPUT OF 0500HRS CHEST TUBES = 140MLS URINE = 1650MLS
[2019-03-01] MEDS: ALBUTEROL SULF 2.5 MG/0.5ML(0.5%) NEB SOLN NEB SCH ×5 (05:39→22:25)
[2019-03-01] MEDS: IPRATROPIUM BROM 0.5 MG/2.5ML INH SOL NEB SCH ×5 (05:39→22:25)
[2019-03-01] MEDS: PROPOFOL 100 ML IV SCH (05:49)
[2019-03-01] MEDS: POTASSIUM CHL 20MEQ/100ML 100 ML IV PRN ×3 (05:57→14:00)
[2019-03-01] MEDS: D5W/SOD CHL 0.45% 1,000 ML IV SCH ×2 (06:25→18:46)
[2019-03-01] MEDS: VANCOMYCIN 1GM/250ML 250 ML IV SCH ×2 (06:36→18:11)
--- NOTE | 2019-03-01 06:45 | NUR ---
CALLED Talked to Dr. Nowak and updated him of patient's condition. He said he saw all the labs. Noted given 1 unit of blood Orders received: 1. IV Fluids decrease to 100ml/hr 2. TV to decrease to 700ml,and observe for few hours. If no bleeding noted decrease to 650mls 3. off milrinone 3. keep NTG at 2mcg/min 4. Urology consult 5. do CMP Addendum: 03/01/19 at 0656 by Carlita Neri RN orders not to give the 2nd unit of blood
[2019-03-01] MEDS ORDERED: D5W/SOD CHL 0.45% 1,000 ML IV SCH (07:00)
--- NOTE | 2019-03-01 07:05 | NUR ---
OPENING NOTE REPORT RECEIVED FROM CLOUD AUTOMATION TESTER NURSE YOU. PATIENT RESTING IN BED INTUBATED AND SEDATED. RESPIRATIONS EVEN AND UNLABORED. MEDIASTINAL CHEST TUBES X2 DRESSINGS CLEAN DRY AND INTACT, NO NOTED CREPITUS DRAINING SANGUINOUS FLUID CONNECTED TO SUCTION. PHAM TO GRAVITY DRAINING WHITNEY RED URINE. CORDIS TO LEFT SUBCLAVIAN APPROXIMATELY 55CM AT THE HUB. ALL DRIPS NOTED IN IV SPREADSHEET. STERNAL INCISION WITH AQUACEL DRESSING CLEAN DRY AND INTACT. RIGHT FEMORAL ARTERIAL LINE SITE CLEAN DRY AND INTACT, NO HEMATOMA NOTED. ALL LINES ZEROED. BED IN LOW POSITION. WILL CONTINUE TO MONITOR.
[2019-03-01] MEDS: MUPIROCIN 2% OINT 15gm or 22gm TOP SCH (07:43)
--- NOTE | 2019-03-01 07:52 | NUR ---
DR RUSSELL RADIOLOGIST CALL WITH CXR RESULTS. WILL CALL DR PIEDRA TO INFORM.
--- NOTE | 2019-03-01 08:05 | NUR ---
UPDATED MD UPDATED DR PIEDRA ON PATIENT HEMODYNAMICS WELL CHEST TUBE AND URINE OUTPUT. MD MADE AWARE OF CXR RESULTS REPORT FROM RADIOLOGIST. PER MD DECREASED TIDAL VOLUME TO 600 AND DECREASE SEDATIONS,MONITOR FOR BLEEDING. IF NO BLEEDING NOTED STOP SEDATIONS BY 0900 AND CPAP PATIENT. WILL INFORM RESPIRATORY THERAPIST OF VENTILATOR CHANGES. ALL ORDER NOTED IN CHART.
--- NOTE | 2019-03-01 08:10 | NUR ---
REMOVED OGT AND REPLACED PER RECOMMENDATION FROM DR RUSSELL RADIOLOGIST FROM CXR RESULTS. PLACEMENT CONFIRMED BY TWO NURSES.
[2019-03-01] MEDS: PANTOPRAZOLE 40 MG/10 ML VIAL INJ IV SCH (09:30)
[2019-03-01 09:32] LABS: Basophils # (auto) 0 uL; Eosinophils # (auto) 0 uL; Hematocrit 26.1 % (41.0-53.0); Hemoglobin 9.1 g/dL (13.5-17.5); Lymphocytes # (auto) 0.3 uL; Lymphocytes % (auto) 3.1 % (10.0-50.0); Mean Corpuscular Hemoglobin 31.7 pg (28.0-32.0); Mean Corpuscular Volume 90.6 fL (80.0-100.0); Monocytes # (auto) 0.6 uL; Monocytes % (auto) 6.9 % (0.0-12.0); Neutrophils # (auto) 7.5 uL; Nucleated Red Blood Cells % 0.1 %; Platelet Count (auto) 92 10^3/uL (140-450); Red Blood Cells 2.88 10^6/uL (4.5-5.90); Red Cell Distribution Width 19.4 % (11.8-14.3); White Blood Cell 8.3 10^3/uL (4.4-10.8)
[2019-03-01] MEDS: CHLORHEXIDINE 0.12% ORAL rinse 473ML MT SCH ×2 (09:33→22:14)
--- NOTE | 2019-03-01 09:43 | NUR ---
SPOKE TO DR PIEDRA AND UPDATED ON PATIENT. PER MD DECREASE PEEP TO 5. PLACE PATIENT ON CPAP TRIAL WHEN AWAKE. ALL ORDERS NOTED IN CHART. RESPIRATORY THERAPIST AWARE.
--- NOTE | 2019-03-01 09:45 | NUR ---
PATIENT PLACED ON CPAP TRIAL. TOLERATING WELL. WILL CONTINUE TO MONITOR.
[2019-03-01 09:55] LABS: Potassium 3.6 mmol/L (3.5-5.1)
[2019-03-01] MEDS: INSULIN DRIP 100 UNIT/100ML 100 ML IV SCH (09:59)
[2019-03-01 10:04] LABS: BUN/Creatinine Ratio 14.8; Bilirubin, Total 1.1 mg/dL (0.2-1.0); Calcium 9.3 mg/dL (8.5-10.1); Magnesium 2.8 mg/dL (1.6-2.6); Phosphorus 4.2 mg/dL (2.5-4.90); Total Protein 6.4 g/dL (6.4-8.2)
--- NOTE | 2019-03-01 10:13 | NUR ---
DR PIEDRA AT BEDSIDE TO ASSESS PATIENT AND DISCUSS PLAN OF CARE. MD MADE AWARE OF DECREASED URINE OUTPUT. PER MD ADMINISTER LASIX 20MG IVP X1 DOSE NOW. ALL ORDERS NOTED IN CHART AND CARRIED OUT.
[2019-03-01] MEDS ORDERED: FUROSEMIDE 20 MG/2 ML VIAL ONE (10:15)
[2019-03-01] MEDS ORDERED: FUROSEMIDE 20 MG/2 ML VIAL IV ONE (10:30)
--- NOTE | 2019-03-01 10:31 | NUR ---
DR ROJO AT BEDSIDE TO ASSESS PATIENT AND DISCUSS PLAN OF CARE. NO NEW ORDERS THIS TIME.
[2019-03-01] MEDS ORDERED: phytonadione 10 MG in SODIUM CHL 0.9% 50 ML IV ONE (10:45)
--- NOTE | 2019-03-01 10:59 | NUR ---
EXTUBATED PATIENT EXTUBATED PER DR PIEDRA ORDER. PATIENT PLACED ON COOL MIST MASK 40%, SATURATIONS 96%, NO STRIDOR NOTED. WILL CONTINUE TO MONITOR.
[2019-03-01] MEDS ORDERED: FUROSEMIDE 40 MG/4 ML VIAL ONE (12:58)
[2019-03-01] MEDS ORDERED: FUROSEMIDE 40 MG/4 ML VIAL IV ONE ×2 (13:00→20:30)
--- NOTE | 2019-03-01 13:05 | NUR ---
PATIENT COMPLAINING OF SOB, INCREASED RR IN THE 30'S SATURATIONS 94%, WHEEZING AND CRACKLES. PER DR PABLO ADMINISTER 40MG LASIX IVPX1 DOSE. PATIENT PLACED ON BIPAP AND GIVEN BREATHING TREATMENT. WILL CONTINUE TO MONITOR.
[2019-03-01] MEDS: MORPHINE SULFATE 4 MG/ML SYR/VIAL IV PRN ×3 (13:09→23:57)
--- NOTE | 2019-03-01 13:20 | NUR ---
PAGED DR GUZMAN LEFT MESSAGE FOR DR GUZMAN TO CALL FOR UROLOGY CONSULT. AWAITING CALL BACK
--- NOTE | 2019-03-01 13:26 | NUR ---
BLADDER SCAN PERFORMED BLADDER SCAN TO CONFIRM APPROXIMATE AMOUNT OF URINE IN BLADDER OF PATIENT DUE TO DECREASED URINE OUTPUT AND CONTINUED HEMATURIA. APPROXIMATELY 50-60ML IN BLADDER.
--- NOTE | 2019-03-01 13:37 | NUR ---
SPOKE TO DR PIEDRA AND UPDATE ON PATIENT RESPIRATORY STATUS. PER MD ORDER STAT CXR AND ABG. ORDERS NOTED IN CHART.
[2019-03-01] MEDS: PHENYLEPHRINE IV 250 ML IV SCH (14:03)
[2019-03-01] MEDS: NOREPINEPHRINE 8 MG/250ML KIT 250 ML IV SCH (14:03)
[2019-03-01] MEDS ORDERED: LIDOCAINE HCL 2% TOP JELLY 5ML TOP ONE (14:45)
--- NOTE | 2019-03-01 15:13 | NUR ---
PAGED DR GUZMAN FOR UROLOGY CONSULT PATIENT CONTINUES TO HAVE HEMATURIA. AWAITING CALL BACK.
--- NOTE | 2019-03-01 15:20 | NUR ---
SPOKE TO DR GUZMAN TO INFORM OF CONSULT, PATIENT STATUS AND CONTINUOUS HEMATURIA. PER MD PLACE 3WAY CATHETER AND START CBI.
--- NOTE | 2019-03-01 15:26 | NUR ---
Patient encounter for Medicare Right to Appeal form. Patient unable to sign due to condition, and no family at bedside to sign on his behalf. Form placed in chart.
--- NOTE | 2019-03-01 15:30 | NUR ---
3 WAY CATHETER PLACEMENT ATTEMPTED [address] CATHETER PLACEMENT. APPLIED LIDOCAINE JELLY TO PENIS WELL CATHETER. SMALL AMOUNT OF URINE NOTED. ATTEMPTED TO ADVANCE CATHETER FURTHER WITHOUT SUCCESS. PATIENT COMPLAINING OF PAIN. STOPPED ADVANCING AND PAGED DR. GUZMAN.
--- NOTE | 2019-03-01 16:12 | NUR ---
DR GUZMAN AT BEDSIDE TO ASSESS PATIENT. MD ABLE TO ADVANCE CATHETER, IRRIGATED CATHETER AND REMOVED LARGE CLOT. PER MD START CBI. CBI STARTED PER MD ORDER. WILL CONTINUE TO MONITOR. DRAINING WHITNEY RED DRAINAGE WITH CLOTS AT THIS TIME.
--- NOTE | 2019-03-01 16:52 | NUR ---
PATIENT PLACED ON 4 LITERS NASAL CANULA. PATIENT TOLERATING WELL SATURATIONS 97% LUNGS CLEAR. WILL CONTINUE TO MONITOR.
[2019-03-01] MEDS: SODIUM CHLORIDE 0.9% 500 ML IV SCH (17:01)
[2019-03-01] MEDS ORDERED: DEXTROSE (50%) 50ML SYRG IV PRN (17:15)
[2019-03-01] MEDS: TAMSULOSIN HYDROCHLORIDE 0.4 MG CAP PO SCH (17:41)
[2019-03-01 18:41] LABS: Basophils # (auto) 0 uL; Basophils % (auto) 0.1 % (0.0-2.0); Eosinophils # (auto) 0 uL; Hematocrit 28.1 % (41.0-53.0); Hemoglobin 9.7 g/dL (13.5-17.5); Lymphocytes # (auto) 0.3 uL; Lymphocytes % (auto) 2.4 % (10.0-50.0); Mean Corpuscular Hemoglobin 31.5 pg (28.0-32.0); Mean Corpuscular Hgb Conc. 34.4 g/dL (32.0-36.0); Mean Corpuscular Volume 91.6 fL (80.0-100.0); Monocytes % (auto) 9.3 % (0.0-12.0); Neutrophils # (auto) 9.7 uL; Neutrophils % (auto) 88.2 % (37.0-80.0); Platelet Count (auto) 87 10^3/uL (140-450); Red Blood Cells 3.07 10^6/uL (4.5-5.90)
[2019-03-01 19:04] LABS: Albumin 4.3 g/dL (3.4-5.0); BUN/Creatinine Ratio 14.8; Calcium 9.5 mg/dL (8.5-10.1); Magnesium 2.6 mg/dL (1.6-2.6)
[2019-03-01 19:06] LABS: Bilirubin, Total 1.1 mg/dL (0.2-1.0); Phosphorus 5.6 mg/dL (2.5-4.90); Total Protein 7.2 g/dL (6.4-8.2)
--- NOTE | 2019-03-01 19:30 | NUR ---
Initial Assessment Patient received laying on bed. Patient is awake, alert, and oriented x4 with no s/s of distress noted. C/O pain and will medicate per MD order. HOB elevated to 30 degrees. RR even and unlabored with equal rise and fall on BiPAP. LIJ dual lumen cordis present with PA catheter at approximately 57cm at the hub. Mid-sternal incision present with Aquacel AG dressing CDI. Chest tubes x2 connected to Atrium collected chamber at -20 cm h20 draining serosanguineous fluid-no clots, crepitus, or air leak noted. Right hand PIV saline locked with no s/s of infiltration or phlebitis noted. Ventricular epicardial wire isolated with external pacemaker generator on standby. Three way huddleston catheter present on continuous bladder irrigation per Dr. Mancuso's order. draining pale pink urine to gravity-no clots noted. Arterial line present with no bleeding, ecchymosis, or hematoma present. STEFANIE hose intact to BLE. Neurovascular status intact with palpable distal pulses x4 extremities, skin warm to touch, capillary refill brisk. Patient educated about how to use the call light and encouraged to call when needing any assistance and patient verbalized understanding. Bed in lowest position, side rails up, bed brakes set, bed alarm set, all vitals stable. Continue close monitoring.
[2019-03-01] MEDS: InsuLIN REG 1unit/0.01ml Soln (100units/ml) SC SCH ×2 (19:57→23:22)
--- NOTE | 2019-03-01 19:57 | NUR ---
Pain management Patient C/O pain and requested medication. No drowsiness or respiratory depression noted. Morphine administered per MD order. Patient tolerated well.
[2019-03-01] MEDS: AMIODARONE HCL 900 MG in DEXTROSE 500 ML IV SCH (20:13)
--- NOTE | 2019-03-01 20:15 | NUR ---
Dr. Nowak call Informed Dr. Nowak of hemodynamics, overall status, urine output, pale/pink color of urine, CVP, vitals, drips. He ordered: -Discontinue PA catheter -Administer 40mg IV Lasix x1 now -do not give 2nd FFP that was previously ordered RN performed TORB and MD verified order to be correct. No additional orders received.
--- NOTE | 2019-03-01 21:30 | NUR ---
PA Catheter discontinued Order to discontinue PA catheter received. Discontinued without incident or ectopy. Patient tolerated well.
--- NOTE | 2019-03-01 23:57 | NUR ---
Pain management Patient C/O pain and requested medication. No drowsiness or respiratory depression noted. Morphine administered per MD order. Patient tolerated well.
[2019-03-02] VITALS (49 sets, daily range): BP systolic 112–175; BP diastolic 66–119
--- NOTE | 2019-03-02 02:00 | NUR ---
Ongoing Assessment Patient resting with no s/s of distress. Appears to be sleeping intermittently but awakens easily to verbal stimuli. States pain has improved post morphine administration. Remains on BiPAP for the night with RR even and unlabored. Remains on CBI and urine is pale/light pink in color with no clots. Chest tubes remain to suction with no crepitus, clots, or air leak noted. Incision site free from any bleeding. 100% paced with permanent pacemaker. Neurovascular status remains intact with palpable distal pulses, skin warm to touch, capillary refill brisk. All fall and safety precautions remain intact. Continue close monitoring.
[2019-03-02] MEDS: ACCU-CHEK COMFORT CURVE STRIP VI SCH ×3 (03:45→12:00)
[2019-03-02] MEDS: InsuLIN REG 1unit/0.01ml Soln (100units/ml) SC SCH ×3 (03:45→12:00)
--- NOTE | 2019-03-02 04:00 | NUR ---
Incisional care Aquacel AG dressing taken off Mid-sternal incision. Incision site cleansed with CHG Swabstick and left open to air per protocol. Chest tube insertion sites cleansed with CHG Swabsticks and re-dressed with occlusive petroleum gauze, sterile gauze, and Medipore tape. All incision sites are well approximated with no s/s of infection or dehiscence noted. Patient tolerated well with no C/O pain.
[2019-03-02 04:11] LABS: Basophils # (auto) 0 uL; Eosinophils # (auto) 0 uL; Hematocrit 25.7 % (41.0-53.0); Lymphocytes # (auto) 0.7 uL; Lymphocytes % (auto) 6.3 % (10.0-50.0); Mean Corpuscular Hemoglobin 32.2 pg (28.0-32.0); Mean Corpuscular Hgb Conc. 34.9 g/dL (32.0-36.0); Mean Corpuscular Volume 92.3 fL (80.0-100.0); Monocytes % (auto) 9.6 % (0.0-12.0); Neutrophils # (auto) 9.1 uL; Neutrophils % (auto) 84.1 % (37.0-80.0); Platelet Count (auto) 78 10^3/uL (140-450); Red Blood Cells 2.79 10^6/uL (4.5-5.90); White Blood Cell 10.9 10^3/uL (4.4-10.8)
[2019-03-02 04:31] LABS: Calcium 8.7 mg/dL (8.5-10.1); Potassium 4.5 mmol/L (3.5-5.1)
[2019-03-02 04:35] LABS: BUN/Creatinine Ratio 17.5
[2019-03-02] MEDS: MORPHINE SULFATE 4 MG/ML SYR/VIAL IV PRN ×2 (05:15→21:41)
[2019-03-02] MEDS: VANCOMYCIN 1GM/250ML 250 ML IV SCH (05:15)
--- NOTE | 2019-03-02 05:15 | NUR ---
Pain management Patient C/O pain and requested medication. No drowsiness or respiratory depression noted. Morphine administered per MD order. Patient tolerated well.
[2019-03-02] MEDS: NICARDIPINE 25MG/250ML BAG KIT 250 ML IV SCH ×4 (05:38→20:45)
[2019-03-02] MEDS: ALBUTEROL SULF 2.5 MG/0.5ML(0.5%) NEB SOLN NEB SCH ×5 (05:51→23:06)
[2019-03-02] MEDS: IPRATROPIUM BROM 0.5 MG/2.5ML INH SOL NEB SCH ×5 (05:51→23:06)
--- NOTE | 2019-03-02 06:55 | NUR ---
Dr. Nowak call Updated on status of patient, outputs, vitals, drips, labs. he ordered: -administer Lasix 40mg PO BID -administer Potassium ER 10meg PO BID -obtain ABG RN performed TORB and verified orders to be correct. No additional orders received.
--- NOTE | 2019-03-02 07:00 | NUR ---
Report given No changes or incidents to report. patient continues to rest with no s/s of distress or pain. Chest tubes remain free of any crepitus, clots, or air leaks noted. Central line intact and patent with no s/s of infiltration or phlebitis. All vitals stable. Continue close monitoring.
--- NOTE | 2019-03-02 07:56 | NUR ---
SPOKE WITH DR PIEDRA UPDATED ON CURRENT STATUS AND PLAN OF CARE. RECEIVED NEW ORDERS
[2019-03-02] MEDS: ceFAZolin 1GM 2 GM in D5W 5% 100 ML IV SCH (08:10)
[2019-03-02] MEDS: MILRINONE 20MG/100ML 100 ML IV SCH ×2 (08:12→22:43)
[2019-03-02] MEDS: D5W/SOD CHL 0.45% 1,000 ML IV SCH (08:12)
--- NOTE | 2019-03-02 09:15 | NUR ---
PATIENTS DAUGHTER CALLED PROVIDED PASSWORD. UPDATED ON CURRENT STATUS AND PLAN OF CARE.
[2019-03-02] MEDS: POTASSIUM CHL 10 Meq TABLET PO SCH ×2 (11:06→21:41)
[2019-03-02] MEDS: PANTOPRAZOLE 40 MG/10 ML VIAL INJ IV SCH (11:06)
[2019-03-02] MEDS: FUROSEMIDE 40 MG TAB PO SCH ×2 (11:07→18:46)
[2019-03-02] MEDS: CHLORHEXIDINE 0.12% ORAL rinse 473ML MT SCH ×2 (11:17→21:41)
--- NOTE | 2019-03-02 12:01 | NUR ---
NUTRITION ASSESSMENT NOTES Please refer to link notes of nutrition screen form filed under the intervention section of the plan of care for further details. Est. Needs: 1750 kcal to 2100 kcal (25-30 kcal/kgBW), 56 gms to 70 gms pro (0.8-1.0 gms/kgBW). Will continue to monitor pertinent labs and reassess nutrient need prn Thank you. Addendum: 03/02/19 at [address] Amended: Links added.
--- NOTE | 2019-03-02 12:30 | NUR ---
DR STARKS AT BEDSIDE DISCUSSED PLAN OF CARE WITH PATIENT. NEW ORDERS PLACED
--- NOTE | 2019-03-02 12:50 | NUR ---
PATIENTS AND SON AT BEDSIDE UPDATED ON PLAN OF CARE. FAMILY VISITING WITH PATIENT.
[2019-03-02] MEDS: PHENYLEPHRINE IV 250 ML IV SCH (14:03)
[2019-03-02] MEDS: NOREPINEPHRINE 8 MG/250ML KIT 250 ML IV SCH (14:03)
[2019-03-02] MEDS: SODIUM CHLORIDE 0.9% 500 ML IV SCH (14:03)
--- NOTE | 2019-03-02 15:30 | NUR ---
PHYSICAL THERAPIST AT BEDSIDE ASSISTED PATIENT TO BEDSIDE CHAIR. MINIMAL ASSIST. VITALS REMAINED STABLE. PATIENT EDUCATED TO STAY IN CHAIR AND NOT GET UP BY HIMSELF WITHOUT STAFF HELP. CURRENTLY ON 6L OXYMIZER. CALL LIGHT WITHIN REACH . INSTRUCTED TO CALL IF NEEDED.
--- NOTE | 2019-03-02 18:20 | NUR ---
PATIENT REQUESTED TO GO BACK TO BED. WITH MINIMAL RN ASSIST, STOOD AND PIVOTED BACK TO BED. PATIENT TOLERATED FAIR. VITALS REMAINED STABLE. BED IN LOW POSITION AND CALL LIGHT WITHIN REACH. INSTRUCTED TO CALL IF NEEDED
[2019-03-02] MEDS: TAMSULOSIN HYDROCHLORIDE 0.4 MG CAP PO SCH (18:46)
--- NOTE | 2019-03-02 19:30 | NUR ---
Initial Assessment Patient received laying on bed. Patient is awake, alert, and oriented x4 with no s/s of distress or C/O pain. HOB elevated to 30 degrees. RR even and unlabored with equal rise and fall on 6L o2 via Oxymizer. LIJ dual lumen cordis present. Mid-sternal incision present with Primapore dressing CDI. Chest tubes x2 connected to Atrium collected chamber at -20 cm h20 draining serosanguineous fluid-no clots, crepitus, or air leak noted. Right hand PIV saline locked with no s/s of infiltration or phlebitis noted. Ventricular epicardial wire isolated with external pacemaker generator on standby. Three way huddleston catheter present on continuous bladder irrigation draining pale pink urine to gravity-no clots noted. STEFANIE hose intact to BLE. Neurovascular status intact with palpable distal pulses x4 extremities, skin warm to touch, capillary refill brisk. Patient educated about how to use the call light and encouraged to call when needing any assistance and patient verbalized understanding. Bed in lowest position, side rails up, bed brakes set, bed alarm set, all vitals stable. Continue close monitoring.
[2019-03-02] MEDS: AMIODARONE HCL 900 MG in DEXTROSE 500 ML IV SCH (20:13)
--- NOTE | 2019-03-02 21:41 | NUR ---
Pain management Patient C/O pain and requested medication. No drowsiness or respiratory depression noted. Morphine administered per MD order. Patient tolerated well.
--- NOTE | 2019-03-02 22:00 | NUR ---
PM ambulation held Patient requesting not to ambulate tonight-stating he is tired. Educated about importance of ambulating and risks of not and he verbalized understanding but continues to refuse to ambulate at this time. Will encourage in the morning.
[2019-03-03] VITALS (33 sets, daily range): BP systolic 109–143; BP diastolic 61–77
[2019-03-03] MEDS: NICARDIPINE 25MG/250ML BAG KIT 250 ML IV SCH ×5 (00:11→22:03)
[2019-03-03 04:12] LABS: Basophils # (auto) 0 uL; Basophils % (auto) 0.3 % (0.0-2.0); Eosinophils # (auto) 0 uL; Eosinophils % (auto) 0.5 % (0.0-7.0); Hemoglobin 9.4 g/dL (13.5-17.5); Lymphocytes # (auto) 0.5 uL; Mean Corpuscular Hemoglobin 31.7 pg (28.0-32.0); Mean Corpuscular Hgb Conc. 33.8 g/dL (32.0-36.0); Mean Corpuscular Volume 93.9 fL (80.0-100.0); Monocytes # (auto) 0.8 uL; Monocytes % (auto) 8.7 % (0.0-12.0); Neutrophils # (auto) 7.8 uL; Neutrophils % (auto) 84.5 % (37.0-80.0); Nucleated Red Blood Cells % 0.1 %; Platelet Count (auto) 72 10^3/uL (140-450); Red Blood Cells 2.98 10^6/uL (4.5-5.90); Red Cell Distribution Width 18.8 % (11.8-14.3); White Blood Cell 9.2 10^3/uL (4.4-10.8)
[2019-03-03 04:50] LABS: Albumin 3.6 g/dL (3.4-5.0); Calcium 8.3 mg/dL (8.5-10.1); Potassium 3.9 mmol/L (3.5-5.1); Total Protein 6.7 g/dL (6.4-8.2)
[2019-03-03] MEDS: FUROSEMIDE 40 MG TAB PO SCH ×2 (05:31→18:42)
[2019-03-03] MEDS: MORPHINE SULFATE 4 MG/ML SYR/VIAL IV PRN (05:31)
--- NOTE | 2019-03-03 05:31 | NUR ---
Pain management Patient C/O pain and requested medication. No drowsiness or respiratory depression noted. Morphine administered per MD order. Patient tolerated well.
--- NOTE | 2019-03-03 05:45 | NUR ---
Incisional care Primapore dressing taken off Mid-sternal incision. Incision site cleansed with CHG Swabstick and re-dressed with Primapore. Chest tube insertion sites cleansed with CHG Swabsticks and re-dressed with occlusive petroleum gauze, sterile gauze, and Medipore tape. All incision sites are well approximated with no s/s of infection or dehiscence noted. Patient tolerated well with no C/O pain.
--- NOTE | 2019-03-03 06:00 | NUR ---
Ambulation Patient ambulated to the chair at bedside without incident. Patient had strong and steady gait and denied any chest pain, SOB, or dizziness. Patient tolerated well.
[2019-03-03] MEDS: ALBUTEROL SULF 2.5 MG/0.5ML(0.5%) NEB SOLN NEB SCH ×5 (06:14→22:24)
[2019-03-03] MEDS: IPRATROPIUM BROM 0.5 MG/2.5ML INH SOL NEB SCH ×5 (06:14→22:24)
--- NOTE | 2019-03-03 07:00 | NUR ---
Report given No changes or incidents to report. patient continues to rest with no s/s of distress or pain. Chest tubes remain free of any crepitus, clots, or air leaks noted. Central line intact and patent with no s/s of infiltration or phlebitis. All vitals stable. Care endorsed to day shift RN.
--- NOTE | 2019-03-03 07:05 | NUR ---
Dr. Nowak call Updated on status of patient and vitals. He ordered: -discontinue marino RN performed TORB and verified order to be correct. No additional orders received. Endorsed order to day shift RN.
--- NOTE | 2019-03-03 07:30 | NUR ---
OPENING SHIFT NOTE REPORT RECEIVED FROM CLERGY MEMBER RN, MORNING ASSESSMENT PERFORMED AND DOCUMENTED. 84 YEAR OLD MALE, SITTING UP IN BEDSIDE CHAIR, RESTING WITH EYES CLOSED, NO DISTRESS NOTED, RESPIRATIONS EVEN AND UNLABORED. PATIENT ALERT UPON ENTERING ROOM, THIS NURSE NOTED PATIENT INCREASED SHORTNESS OF BREATH AND WET COUGH WHEN TALKING, RESPIRATIONS INCREASING TO THE 20'S/30'S ON 6L o2 OXYMIZER, OXYGENATING ABOVE 95%. PATIENT OFF BIPAP AND BREATHING TREATMENT PRIOR TO SHIFT CHANGE. PATIENT AWAKE, ALERT AND ORIENTED X4, PATIENT DENIES PAIN OR DISCOMFORT AT THIS TIME. I.S. DEMONSTRATED 500 MLS AND PATIENT ENCOURAGED TO INCREASE USE OF I.S. TO SPIT OUT PHLEGM. LEFT SUBCLAVIAN CORDIS PRESENT AND WILL BE DISCONTINUED ORDERED BY MD. MID-STERNAL INCISION PRESENT WITH PRIMAPORE DRESSING - CLEAN, DRY AND INTACT. CHEST TUBE X2 CONNECTED TO ATRIUM COLLECTION CHAMBER AT -20 CM H20 DRAINING SEROSANGUINEOUS FLUID, NO CLOTS NOTED, CREPITUS AND/OR AIR LEAK. VENTRICULAR EPICARDIAL WIRE ISOLATED WITH EXTERNAL PACEMAKER GENERATOR ON STANDBY. THREE WAY PHAM CATHETER PRESENT ON CONTINUOUS BLADDER IRRIGATION DRAINING PINK TINGED URINE TO GRAVITY, NO CLOTS NOTED. STEFANIE HOSE INTACT TO BILATERAL LOWER EXTREMITIES WITH PRESENT PALPABLE DISTAL PULSES X4. SKIN WARM TO TOUCH, CAPILLARY REFILL BRISK. CALL LIGHT, WATER AND BELONGINGS WITHIN REACH, FALL AND SAFETY PRECAUTIONS IN PLACE. WILL CONTINUE TO MONITOR DURING SHIFT.
--- NOTE | 2019-03-03 09:19 | NUR ---
AMBULATION PATIENT AMBULATED ONE TIME AROUND ICU NURSE STATION WITH USE OF ROLLATOR WALKER AND NOTED STEADY GAIT. PATIENT CONNECTED TO PORTABLE MONITOR AND OXYGEN WITH NOTICEABLE SHORTNESS OF BREATH - PATIENT STOPPED THREE TIMES TO REST AND COUGH WITH EXPECTORATING A SMALL, THICK, TAYLOR COLOR SPUTUM. PATIENT SITTING UP IN BEDSIDE CHAIR, CONNECTED TO BEDSIDE MONITOR AND PROVIDED BREAKFAST. VSS AND DOCUMENTED.
[2019-03-03] MEDS: PANTOPRAZOLE 40 MG/10 ML VIAL INJ IV SCH (10:04)
[2019-03-03] MEDS: CHLORHEXIDINE 0.12% ORAL rinse 473ML MT SCH ×2 (10:04→21:42)
[2019-03-03] MEDS: POTASSIUM CHL 10 Meq TABLET PO SCH ×2 (10:05→21:41)
[2019-03-03] MEDS ORDERED: FUROSEMIDE 40 MG/4 ML VIAL IV ONE (10:15)
--- NOTE | 2019-03-03 11:00 | NUR ---
DR PIEDRA/FAMILY AT BEDSIDE UPDATED ON PATIENT'S STATUS, SHORTNESS OF BREATH/WHEEZING AND MORNING LABS. ORDERS RECEIVED. FAMILY AT BEDSIDE, DR PIEDRA DISCUSSED PLAN OF CARE WITH PATIENT AND FAMILY. ALL VERBALIZED UNDERSTANDING.
--- NOTE | 2019-03-03 12:36 | NUR ---
HOSPITALIST AT BEDSIDE/PAGED DR TADEO STARKS UPDATED ON PATIENT'S STATUS AND SHORTNESS OF BREATH NOTED THIS MORNING AND DR PIEDRA'S ORDER FOR LASIX. CPAP REMOVED AND DR STARKS ASSESSED PATIENT AND NOTED PATIENT'S CONTINUED SOB. ORDERS FOR STAT CXR RECEIVED, PATIENT PLACED BACK ON 6 LITERS o2 VIA OXYMIZER. THIS NURSE ASKED PATIENT IF HE WAS HAVING DIFFICULTY BREATHING, PATIENT NODDED HEAD YES, DR STARKS NOTIFIED AND PAGED DR PIEDRA TO NOTIFY OF STATUS CHANGE, AWAITING RESPONSE.
[2019-03-03] MEDS: MILRINONE 20MG/100ML 100 ML IV SCH (12:45)
--- NOTE | 2019-03-03 14:00 | NUR ---
PAGED HOSPITALIST DR STARKS TO OBTAIN ORAL PAIN MEDICATION AND ANXIETY MEDICATION PREVIOUSLY DISCUSSED, AWAITING RESPONSE.
[2019-03-03] MEDS: NOREPINEPHRINE 8 MG/250ML KIT 250 ML IV SCH (14:03)
[2019-03-03] MEDS: PHENYLEPHRINE IV 250 ML IV SCH (14:03)
--- NOTE | 2019-03-03 15:05 | NUR ---
CALL RECEIVED FROM DR TADEO PIEDRA UPDATED ON PATIENT'S STATUS AND NOTED SHORTNESS OF BREATH. DR PIEDRA ALSO UPDATED ON ABG AND CXR RESULTS AND HOSPITALIST AWARENESS. DR PIEDRA AGREED WITH CURRENT TREATMENT OF BIPAP AND REST - ORDERS RECEIVED.
--- NOTE | 2019-03-03 16:30 | NUR ---
Respiratory note: PT TAKEN OFF BIPAP PER HIS REQUEST. PT PLACED ON 3L OXYMIZER, TOLERATING WELL. HR 69 RR 18 SPO2 93%. JEREMIAH HANCOCK NOTIFIED.
[2019-03-03] MEDS ORDERED: ACETAMINOPHEN 500 MG TAB PO PRN (17:00)
[2019-03-03] MEDS ORDERED: LORazepam 0.5 MG TAB PO PRN ×2 (17:00→17:45)
[2019-03-03] MEDS: SODIUM CHLORIDE 0.9% 500 ML IV SCH (17:44)
--- NOTE | 2019-03-03 18:36 | NUR ---
Family updated on pt status Family of RON CRUZ updated on patient's status and condition after password verification. All questions and concerns addressed. Sandie verbalized understanding.
[2019-03-03] MEDS: TAMSULOSIN HYDROCHLORIDE 0.4 MG CAP PO SCH (18:42)
--- NOTE | 2019-03-03 19:12 | NUR ---
END OF SHIFT NOTE PATIENT SITTING UP IN BEDSIDE CHAIR ON BIPAP, NO DISTRESS NOTED, RESPIRATIONS EVEN AND UNLABORED, VSS AND DOCUMENTED. ENDORSED CONTINUED CARE TO ACCOUNT MANAGER RELIEF RN.
--- NOTE | 2019-03-03 19:30 | NUR ---
Initial Assessment Patient received sitting in cardiac chair at bedside. Patient is awake, alert, and oriented x4 with no s/s of distress and denies pain. RR even and unlabored with equal rise and fall on BiPAP. LIJ dual lumen cordis present (will D/C per MD order during this shift). Mid-sternal incision present with Primapore dressing CDI. Chest tubes x2 connected to Atrium collected chamber at -20 cm h20 draining serosanguineous fluid-no clots, crepitus, or air leak noted. Right hand PIV saline locked with no s/s of infiltration or phlebitis noted. Ventricular epicardial wire isolated with external pacemaker generator on standby. Three way huddleston catheter present on continuous bladder irrigation draining pale dark pink urine to gravity-small strands of clots visualized in catheter tubing. STEFANIE hose intact to BLE. Neurovascular status intact with palpable distal pulses x4 extremities, skin warm to touch, capillary refill brisk. Patient educated about how to use the call light and encouraged to call when needing any assistance and patient verbalized understanding. Bed in lowest position, side rails up, bed brakes set, bed alarm set, all vitals stable. Continue close monitoring.
--- NOTE | 2019-03-03 20:00 | NUR ---
CBI Urine is darker from last night's shift with strands of clots visualized in catheter tubing. RN manually irrigated catheter port using aseptic technique with sterile NS and it was patent. RN increased rate of irrigation. Patient tolerating well.
[2019-03-03] MEDS: AMIODARONE HCL 900 MG in DEXTROSE 500 ML IV SCH (20:13)
--- NOTE | 2019-03-03 20:30 | NUR ---
Activity Patient ambulated from the cardiac chair to the bed without incident utilizing two RNs for moderate assist. Patient tolerated well and had strong gait but was SOB upon getting back into bed. RN put BiPAP mask back on patient and notified RT. SOB subsided almost immediately. Per Dr. Nowak, ok to keep patient on BiPAP overnight due to intermittent periods of SOB.
--- NOTE | 2019-03-03 23:05 | NUR ---
Respiratory note: PT TAKEN OFF BIPAP AT THIS TIME PER PT REQUEST. PLACED HIM ON A 3L NASAL CANNULA, SP02 97%. PT AWARE TO CALL FOR RT IF HE WISHES TO GO BACK ON THE BIPAP.
[2019-03-04] VITALS (31 sets, daily range): BP systolic 107–148; BP diastolic 65–83
[2019-03-04] MEDS: MORPHINE SULFATE 4 MG/ML SYR/VIAL IV PRN (01:45)
--- NOTE | 2019-03-04 01:45 | NUR ---
Pain management Patient C/O pain and requested medication. No drowsiness or respiratory depression noted. Morphine administered per MD order. Patient tolerated well.
--- NOTE | 2019-03-04 02:00 | NUR ---
Cordis Discontinued Order present to discontinue with cordis. Discontinued without incident. Pressure applied for five minutes-no bleeding noted. Dressing applied. Patient tolerated well and the catheter was fully intact.
[2019-03-04] MEDS: NICARDIPINE 25MG/250ML BAG KIT 250 ML IV SCH ×2 (02:15→07:32)
[2019-03-04] MEDS: MILRINONE 20MG/100ML 100 ML IV SCH (02:15)
--- NOTE | 2019-03-04 04:00 | NUR ---
Incisional care Primapore dressing taken off Mid-sternal incision. Incision site cleansed with CHG Swabstick and left open to air. Chest tube insertion sites cleansed with CHG Swabsticks and re-dressed with occlusive petroleum gauze, sterile gauze, and Medipore tape. All incision sites are well approximated with no s/s of infection or dehiscence noted. Patient tolerated well with no C/O pain.
[2019-03-04 04:49] LABS: Basophils # (auto) 0 uL; Basophils % (auto) 0.1 % (0.0-2.0); Eosinophils # (auto) 0.2 uL; Hemoglobin 10.4 g/dL (13.5-17.5); Lymphocytes # (auto) 0.5 uL; Mean Corpuscular Hgb Conc. 33.7 g/dL (32.0-36.0); Mean Corpuscular Volume 94.9 fL (80.0-100.0); Monocytes # (auto) 0.8 uL; Monocytes % (auto) 10.8 % (0.0-12.0); Neutrophils # (auto) 5.9 uL; Neutrophils % (auto) 79.1 % (37.0-80.0); Platelet Count (auto) 77 10^3/uL (140-450); Red Blood Cells 3.27 10^6/uL (4.5-5.90); White Blood Cell 7.4 10^3/uL (4.4-10.8)
[2019-03-04 05:02] LABS: Potassium 3.6 mmol/L (3.5-5.1)
[2019-03-04 05:14] LABS: Albumin 3.7 g/dL (3.4-5.0); BUN/Creatinine Ratio 29.2; Calcium 8.3 mg/dL (8.5-10.1)
[2019-03-04 05:17] LABS: Bilirubin, Total 1.2 mg/dL (0.2-1.0); Total Protein 6.9 g/dL (6.4-8.2)
--- NOTE | 2019-03-04 05:30 | NUR ---
Activity Attempted to get pt OOB for ambulation but patient got short of breath and states he wants to go back to bed. RN held ambulation for patient safety. PT is following patient. Placed back in BiPAP 30% Fi02.
[2019-03-04] MEDS: FUROSEMIDE 40 MG TAB PO SCH ×2 (06:26→18:04)
--- NOTE | 2019-03-04 07:00 | NUR ---
Report given No changes or incidents to report. patient continues to rest with no s/s of distress or pain. RR even and unlabored with equal rise and fall on BiPAP. No SOB or accessory muscle use noted. IV sites intact and patent with no s/s of infiltration or phlebitis. All vitals stable. Care endorsed to day shift RN
[2019-03-04] MEDS: ALBUTEROL SULF 2.5 MG/0.5ML(0.5%) NEB SOLN NEB SCH ×5 (07:07→22:58)
[2019-03-04] MEDS: IPRATROPIUM BROM 0.5 MG/2.5ML INH SOL NEB SCH ×5 (07:07→22:58)
--- NOTE | 2019-03-04 07:12 | NUR ---
Respiratory note: RECEIVED PATIENT ON B6 V60 BIPAP FITTED WITH A MEDIUM FULL FACE MASK AND BEING VENTILATED WITH THE CHARTED SETTINGS. SPO2 96%, LUNG SOUNDS CELAR/DIM T/O. PATIENT IS ASLEEP BUT AROUSABLE AND IS TOLERATING BIPAP/MASK WELL. THERE IS A PROTECTA-GEL DRESSING IN PLACE AND NO REDNESS OR SKIN INTEGRITY ISSUES ARE NOTED. BIPAP PLUGGED INTO RED OUTLET AND ALL ALARMS ARE SET AND AUDIBLE. WILL CONTINUE TO ASSESS PATIENT WELL BIPAP FUNCTION. [employer] RUN INLINE.
--- NOTE | 2019-03-04 08:00 | NUR ---
OPEN RECEIVED REPORT FROM NIGHT RN. ASSUMED CARE OF ICU PATIENT, FULL CODE STATUS. PATIENT A & O X4 CALM AND ON BIPAP AT THIS TIME. RATE 12, 12/5 AT 30% FIO2. NO PAIN AT THIS TIME. PATIENT NOT WANTING TO EAT BREAKFAST AT THIS TIME. PATIENT WANTING TO REST THIS AM. 3 WAY PHAM WITH CBI GOING AT THIS TIME WITH PALE PINK URINE IN PHAM BAG. X2 CHEST TUBE TO SUCTION. MINIMAL DRAINAGE. DRESSING INTACT. RIGHT HAND #20G IV NS LOCKED AT THIS TIME. SKIN INTACT TO SACRAL AREA. SEE INTERACTIVE DESIGNER FOR FURTHER PATIENT INFORMATION. CONTINUE CARE.
[2019-03-04] MEDS: CHLORHEXIDINE 0.12% ORAL rinse 473ML MT SCH ×2 (09:42→22:26)
--- NOTE | 2019-03-04 09:55 | NUR ---
Respiratory note: PATIENT TAKEN OFF BIPAP AT THIS TIME AND PLACED ON 3LPM NASAL CANNULA. SPO2 MAINTAINED BETWEEN 94-96%. MED-NEB ADMINISTERED VIA MASK AT THIS TIME.
[2019-03-04] MEDS: PANTOPRAZOLE 40 MG/10 ML VIAL INJ IV SCH (10:00)
[2019-03-04] MEDS: POTASSIUM CHL 10 Meq TABLET PO SCH ×2 (10:00→22:17)
--- NOTE | 2019-03-04 10:14 | NUR ---
DR. PIEDRA CALLED: UPDATE MD UPDATED ON PT'S CURRENT STATUS, I & O'S AND CURRENT CXR FROM TODAY. ORDERS GIVEN FOR PATIENT TO BE ON FLUID RESTRICTION OF 1000 ML/ DAY PO INTAKE. OTHER ORDERS GIVEN AND TO BE CARRIED OUT. CONTINUE CARE.
[2019-03-04] MEDS ORDERED: MORPHINE SULFATE 4 MG/ML SYR/VIAL IV PRN (10:30)
[2019-03-04] MEDS ORDERED: FUROSEMIDE 20 MG/2 ML VIAL IV ONE (10:30)
--- NOTE | 2019-03-04 10:50 | NUR ---
DR. LR AT BEDSIDE: ORDERS MD UPDATED ON PT'S STATUS, LABS AND CURRENT I & O'S. ORDERS GIVEN AND TO BE CARRIED OUT. WILL CONTINUE TO MONITOR PATIENT. CONTINUE CARE.
--- NOTE | 2019-03-04 11:29 | NUR ---
Respiratory note: PATIENT PLACED BACK ON B6 BIPAP FOR SOME RESPIRATORY DISTRESS. HE WAS SHOWING SIGNS OF AN INCREASE IN WOB AND COMPLAINED OF BEING SLIGHTLY SOB. RN NASIM AT BEDSIDE AND AWARE OF BIPAP PLACEMENT. PROTECTA-GEL IN PLACE AND NO REDNESS OR SKIN INTEGRITY ISSUES TO NOTE. BIPAP PLUGGED INTO RED OUTLET AND ALL ALARMS ARE SET AND AUDIBLE. WILL CONTINUE TO MONITOR.
[2019-03-04] MEDS: HYDROcodone-ACET 5/325MG TAB PO PRN (11:30)
[2019-03-04] MEDS: Ensure HIGH Protein Chocolate 8oz Bottle PO SCH ×2 (13:44→17:58)
[2019-03-04] MEDS: SODIUM CHLORIDE 0.9% 500 ML IV SCH (13:45)
--- NOTE | 2019-03-04 15:33 | NUR ---
NUTRITION PATIENT TAKEN OFF BIPAP FOR A MOMENT TO EAT. PATIENT DRANK ALL OF ENSURE PROTEIN DRINK AND ATE HALF OF A APPLESAUCE. PATIENT TOLERATED WELL. NO N/V AT THIS TIME. PATIENT PLACED BACK ON BIPAP 04/11 AT 30 % FIO2. PATIENT SATS 95%. RR 18. CONTINUE CARE.
--- NOTE | 2019-03-04 15:53 | NUR ---
PT PATIENT PUT ON HOLD, FOR HAVING TO BE ON BYEndorphin MACHINE. Addendum: 03/04/19 at 1554 by ABBI BAILON PTT Amended: Links added.
[2019-03-04] MEDS: TAMSULOSIN HYDROCHLORIDE 0.4 MG CAP PO SCH (18:03)
--- NOTE | 2019-03-04 22:20 | NUR ---
OUT OF BED Patient wants to get out of bed to do bowel movement. BIPAP mask removed and placed on Oxymizer at 5L/min. Patient is not feeling short of breath, RR20-25/min, SPO2 96% Assisted out of bed to the commode chair by 2 nurses - tolerated good Call grier placed near patient and instructed to call once done and not to stand up on his own. Verbalized understanding
--- NOTE | 2019-03-04 22:30 | NUR ---
RESPIRATORY While on the commode, patient started to get wheezy, RR 25-30/min, catching his breath, SPO2 95% Brought back to bed and called RT [place] to place back on BIPAP and give breathing treatment.
--- NOTE | 2019-03-04 23:30 | NUR ---
RE-ASSESS Patient is breathing comfortably now, RR 18-20/min. Lung sounds clear He feels better according to patient will continue to monitor
[2019-03-05] VITALS (32 sets, daily range): BP systolic 110–145; BP diastolic 63–100
--- NOTE | 2019-03-05 00:30 | NUR ---
ROUNDS Patient is resting now, eyes closed VS stable on BIPAP
[2019-03-05 04:29] LABS: Basophils # (auto) 0 uL; Basophils % (auto) 0.2 % (0.0-2.0); Eosinophils # (auto) 0.2 uL; Eosinophils % (auto) 3.4 % (0.0-7.0); Hematocrit 30.4 % (41.0-53.0); Hemoglobin 10.2 g/dL (13.5-17.5); Lymphocytes # (auto) 0.4 uL; Mean Corpuscular Hemoglobin 31.7 pg (28.0-32.0); Mean Corpuscular Hgb Conc. 33.6 g/dL (32.0-36.0); Mean Corpuscular Volume 94.5 fL (80.0-100.0); Monocytes # (auto) 0.7 uL; Monocytes % (auto) 11.2 % (0.0-12.0); Neutrophils # (auto) 4.7 uL; Neutrophils % (auto) 78.2 % (37.0-80.0); Nucleated Red Blood Cells % 0.1 %; Platelet Count (auto) 91 10^3/uL (140-450); Red Blood Cells 3.21 10^6/uL (4.5-5.90)
[2019-03-05 04:52] LABS: Calcium 8.4 mg/dL (8.5-10.1); Potassium 3.5 mmol/L (3.5-5.1)
[2019-03-05 04:54] LABS: BUN/Creatinine Ratio 33.3
[2019-03-05] MEDS: ALBUTEROL SULF 2.5 MG/0.5ML(0.5%) NEB SOLN NEB SCH ×5 (05:40→22:12)
[2019-03-05] MEDS: IPRATROPIUM BROM 0.5 MG/2.5ML INH SOL NEB SCH ×5 (05:40→22:12)
--- NOTE | 2019-03-05 05:45 | NUR ---
HYGIENE/INCISIONAL CARE Patient cleaned with CHG wipes. Cleaned incisions with CHG swabs. Chest tube dressings changed
--- NOTE | 2019-03-05 06:00 | NUR ---
OUT OF BED Patient was taken off BIPAP mask. Oral care done. Drank water well. Assisted to bedside chair. RR 30's/min - Encouraged to breath slowly arm and leg exercises done will continue to monitor
--- NOTE | 2019-03-05 06:30 | NUR ---
ELIMINATION Assisted patient to the commode chair - able to had BM moderate amount soft brownish stool
[2019-03-05] MEDS: FUROSEMIDE 40 MG TAB PO SCH ×2 (07:01→19:00)
--- NOTE | 2019-03-05 08:24 | NUR ---
DR PIEDRA AT BEDSIDE DISCUSSED PLAN OF CARE WITH PATIENT.
--- NOTE | 2019-03-05 08:30 | NUR ---
PLACED PATIENT ON 5L OXYMIZER PATIENTS RR LOWS 20S,SPO2 99%. WILL CONTINUE TO MONITOR CLOSELY
--- NOTE | 2019-03-05 08:35 | NUR ---
CHEST TUBES REMOVED BY DR PIEDRA PATIENT TOLERATED FAIR ON 5L OXYMIZER. AWAITING POST CHEST XRAY
[2019-03-05] MEDS ORDERED: FUROSEMIDE 40 MG/4 ML VIAL IV ONE (09:00)
--- NOTE | 2019-03-05 09:10 | NUR ---
UNSTABLE FOR TRANSPORT TO CT AT THIS TIME PER ANNIA DANIELS. WILL REASSESS THIS AFTERNOON.
[2019-03-05] MEDS: PANTOPRAZOLE 40 MG/10 ML VIAL INJ IV SCH (09:49)
[2019-03-05] MEDS: POTASSIUM CHL 20 Meq TABLET PO SCH ×2 (09:49→22:29)
[2019-03-05] MEDS: Ensure HIGH Protein Chocolate 8oz Bottle PO SCH ×3 (09:55→21:23)
[2019-03-05] MEDS: CHLORHEXIDINE 0.12% ORAL rinse 473ML MT SCH ×2 (09:56→22:31)
--- NOTE | 2019-03-05 09:56 | NUR ---
PATIENTS AND SON AT BEDSIDE UPDATED ON PLAN OF CARE
--- NOTE | 2019-03-05 11:02 | NUR ---
ELIMINATION PATIENT TRANSFERRED FROM BEDSIDE CHAIR TO BEDSIDE COMMODE WITH MINIMAL ASSIST. ABLE TO HAVE SMALL FORMED BM. COMPLAINING OF 10/10 PAIN IN BLADDER/ ABDOMEN. PHAM DRAINING MINIMAL ABOUT DESPITE CBI. USING 60CC OF STERILE WATER AND SYRINGE, MANUALLY FLUSHED AND WITHDREW DARK RED URINE WITH MULTIPLE BLOOD CLOTS. PATIENT IMMEDIATELY FELT RELIEF AND STARTED DRAINING WHITNEY PINK URINE. WILL CONTINUE TPO MONITOR CLOSELY
--- NOTE | 2019-03-05 12:39 | NUR ---
DR LR AT BEDSIDE DISCUSSED PLAN OF CARE WITH PATIENT AND PATIENTS .
[2019-03-05] MEDS: SODIUM CHLORIDE 0.9% 500 ML IV SCH (14:03)
--- NOTE | 2019-03-05 16:45 | NUR ---
TRANSPORTED TO AND FROM RADIOLOGY DEPARTMENT FOR CT SCAN PATIENTS VITALS REMAINED STABLE, CONNECTED TO PORTABLE SOLUTIONS SPECIALIST AND PORTABLE OXYGEN 4L OXYMIZER
--- NOTE | 2019-03-05 17:02 | NUR ---
SPOKE WITH DR PIEDRA RECEIVED NEW ORDERS
[2019-03-05 18:10] LABS: INR 1.06 (0.9-1.15); Partial Thromboplastin Time 26.7 sec (23.64-32.05)
[2019-03-05] MEDS: TAMSULOSIN HYDROCHLORIDE 0.4 MG CAP PO SCH (19:00)
--- NOTE | 2019-03-05 19:00 | NUR ---
BACK TO BED Assisted back to bed. On Oxymizer at 4L/min. Noted short of breath with some wheezing after the movement. RR 30-36/min. Encouraged to do slow deep breaths and to relax. Propped up in bed. - breathing getting better RR 25-30/min, SPO2 96% will continue to monitor
--- NOTE | 2019-03-05 19:30 | NUR ---
OPEN NOTES Received report from JEREMIAH Leon. Full assessment done - refer interventions Chest tubes were pulled out today- dressing intact. No complains of any pain. VS stable. Noted still tachypneic RR 30/min but feels better compared to earlier. BIPAP standby at bedside. Still on continuous bladder irrigation , urine pale yellowish now. With episode of blood clots in the morning needed manual flushing - to observe will continue to monitor
--- NOTE | 2019-03-05 23:00 | NUR ---
INCENTIVE SPIROMETRY IS DONE X 10 TIMES 500ML UP TO 1000ML ADVISED TO USE IT MORE FREQUENTLY WHEN AWAKE STILL HAS MOIST COUGH, SOB ON EXERTION
[2019-03-06] VITALS (25 sets, daily range): BP systolic 104–138; BP diastolic 47–77
[2019-03-06 04:21] LABS: Basophils # (auto) 0 uL; Basophils % (auto) 0.3 % (0.0-2.0); Eosinophils # (auto) 0.2 uL; Eosinophils % (auto) 3.3 % (0.0-7.0); Hematocrit 30.9 % (41.0-53.0); Hemoglobin 10.2 g/dL (13.5-17.5); Lymphocytes # (auto) 0.6 uL; Lymphocytes % (auto) 8.5 % (10.0-50.0); Mean Corpuscular Hemoglobin 31.5 pg (28.0-32.0); Mean Corpuscular Hgb Conc. 33.1 g/dL (32.0-36.0); Mean Corpuscular Volume 95.3 fL (80.0-100.0); Monocytes # (auto) 0.9 uL; Neutrophils % (auto) 74.9 % (37.0-80.0); Platelet Count (auto) 102 10^3/uL (140-450); Red Blood Cells 3.25 10^6/uL (4.5-5.90); Red Cell Distribution Width 17.9 % (11.8-14.3); White Blood Cell 6.6 10^3/uL (4.4-10.8)
--- NOTE | 2019-03-06 04:30 | NUR ---
AMBULATION Patient ambulated 6 laps around ICU needed to rest for few times and do deep breathing because saturation drops to the 75-80%
[2019-03-06 04:51] LABS: Calcium 8.5 mg/dL (8.5-10.1); Potassium 3.4 mmol/L (3.5-5.1)
[2019-03-06] MEDS: ALBUTEROL SULF 2.5 MG/0.5ML(0.5%) NEB SOLN NEB SCH ×5 (05:48→22:13)
[2019-03-06] MEDS: IPRATROPIUM BROM 0.5 MG/2.5ML INH SOL NEB SCH ×5 (05:48→22:13)
[2019-03-06] MEDS: FUROSEMIDE 40 MG TAB PO SCH ×2 (05:51→14:45)
--- NOTE | 2019-03-06 05:54 | NUR ---
POTASSIUM LOW TALKED TO NEYMAR FRAGOSO OVER THE PHONE,INFORMED K= 3.4 MMOL VERBAL ORDER RECEIVED AND VERIFIED ORAL POTASSIUM 20MEQ X 1
[2019-03-06] MEDS ORDERED: POTASSIUM CHL 20 Meq TABLET PO ONE ×2 (06:00→14:45)
--- NOTE | 2019-03-06 06:30 | NUR ---
IV insertion IV access obtained, via clean sterile technique by inserting 22 gauge catheter at right FA after 1 attempt(s). IV secured properly. No trauma to site. Patient tolerated well.
--- NOTE | 2019-03-06 06:45 | NUR ---
INCISIONAL CARE Incision sites cleaned with CHG swabs. Previous chest tube insertion sites covered with occlusive dressing
--- NOTE | 2019-03-06 06:50 | NUR ---
HYGIENE Patient cleaned with CHG wipes. Linens changed
[2019-03-06] MEDS: Ensure HIGH Protein Chocolate 8oz Bottle PO SCH ×2 (08:48→12:00)
--- NOTE | 2019-03-06 09:30 | NUR ---
ELIMINATION PATIENT ASSISTED TO BEDSIDE COMMODE, HAD SMALL FORMED BM. REQUESTED TO GO BACK TO BED. STATES HE DIDN'T SLEEP WELL LAST NIGHT. STANDBY ASSIST BACK TO BED. PATIENT CONNECTED TO BEDSIDE MONITORS AND 3L OXYMIZER WITH STABLE VITALS. CALL LIGHT WITHIN REACH. WILL CONTINUE TO MONITOR CLOSELY
--- NOTE | 2019-03-06 09:55 | NUR ---
PATIENTS ZENOBIA AT BEDSIDE UPDATED ON STATUS AND PLAN OF CARE
[2019-03-06] MEDS: CHLORHEXIDINE 0.12% ORAL rinse 473ML MT SCH ×2 (11:20→21:47)
[2019-03-06] MEDS: PANTOPRAZOLE 40 MG TAB PO SCH (11:37)
[2019-03-06] MEDS: POTASSIUM CHL 20 Meq TABLET PO SCH ×2 (11:38→14:45)
--- NOTE | 2019-03-06 12:04 | NUR ---
Nutrition Follow-up Notes Wt.: 68.0 kg today. Pt's room curtain's closed, RN at bedside during rounds this morning. Noted pt's on facial BiPAP mask, no signs of distress noted earlier, currently on Mechanical Soft diet with Ensure High Prot 1 carton TID has inadequate PO intake aeb no record of food intake since yesterday. Est. Needs: 1750 kcal to 2100 kcal (25-30 kcal/kgBW), 56 gms to 70 gms pro (0.8-1.0 gms/kgBW). Will continue to monitor pertinent labs and reassess nutrient need prn Labs: CO2 33 H, BUN 34 H, Tot marisabel 1.2 H, AST 42 H Skin: Robin scale 19, mod risk, pt's medial chest insertion Chest tube per appliquer. GI: Pt's no bowel activity since 02/27/19 per appliquer. PES: Increased nutrient needs r/t acute/chronic medical condition aeb s/p surgery. s/p extubation, hx of wt loss. Altered nutrition related lab values r/t current/chronic medical condition aeb hyperglycemia, hyperchloremia, elev. renal labs, Will continue to monitor PO intake, pertinent labs, skin status and weight trends. F/u in 3 to 5 days. Additional Recommendation:1.) Consider Mechanical Soft Cardiac: 2 gms Na, Low Chol, Low Fat diet. 2.) Continue close supervision and feeding assistance prn during meals. 3.) If pt's PO intake inadequate (<75%), consider appetite stimulant prn to improve PO intake .4.) Refer to RD for further nutrition educ. and weight monitoring upon discharge. 5.) Continue current plan of care.
--- NOTE | 2019-03-06 14:30 | NUR ---
DR LR AT BEDSIDE DISCUSSED PLAN OF CARE WITH PATIENT AND PATIENTS
--- NOTE | 2019-03-06 15:00 | NUR ---
CBI STOPPED PER DR BE US PLACED ON IRRIGATION PORT OF CATHETER
--- NOTE | 2019-03-06 17:32 | NUR ---
BED ASSIGNMENT 261, REPORT GIVEN TO ROSIO RN AWAITING ROOM TO BE CLEANED AND WILL TRANSPORT PATIENT TO NEW ROOM
[2019-03-06] MEDS: TAMSULOSIN HYDROCHLORIDE 0.4 MG CAP PO SCH (18:45)
[2019-03-06] MEDS: HYDROcodone-ACET 5/325MG TAB PO PRN (18:45)
--- NOTE | 2019-03-06 18:52 | NUR ---
RECEIVED PATIENT FROM THE ICU BY THE BED A/O TIMES 4 , SALINE LOCK TO THE RT HAND 2OG AND RFA 22G, PHAM TO GRAVITY, O2 BY R/A, MEDICATED FOR PAIN TO THE ABDOMINAL AREA WITH NORCO, DRESSING TO THE MIDDLE OF THE CHEST INTACT, DIDN'T WANT TO EAT HIS DINNER, JUST WANTED DRINK HIS PROTEIN DRINK, VS 98'1-69-25 133/67 97%, WILL CONTINUE TO MONITOR AND GIVE REPORT TO THE NEXT SHIFT
--- NOTE | 2019-03-06 20:15 | NUR ---
REFUSED AMBULATION THIS TIME, PT VERBALIZED FATIGUE.
[2019-03-07] VITALS (9 sets, daily range): BP systolic 105–128; BP diastolic 52–71
--- NOTE | 2019-03-07 02:24 | NUR ---
REQUESTING TO D/C THE BIPAP, PLACED BACK ON OXYMIZER @ 2L/MIN, SPO2 98%. NO DISTRESS NOTED.
--- NOTE | 2019-03-07 04:00 | NUR ---
Patient bathe/linen change Patient given CHG bath. Skin integrity assessed for any changes. Linens and gown changed. Patient repositioned for comfort.
--- NOTE | 2019-03-07 04:50 | NUR ---
AMBULATION AMBULATED WITHIN THE UNIT, CONNECTED TO PORTABLE MONITOR AND OXYMIZER @ 4L/MIN, COMPLETED 10 LAPS. ASSISTED BACK ON BED, SOME SOB NOTED BUT NOT IN DISTRESS, CONNECTED BACK TO BS MONITOR AND O2/ OXYMIZER @ 2L/MIN. PLACED ON MODERATE HIGH BACK REST.
--- NOTE | 2019-03-07 05:20 | NUR ---
PINK TINGED URINE NOTED, FLUSHED WITH NS, PAGED DR. GUZMAN. AWAITING CALL BACK.
--- NOTE | 2019-03-07 05:30 | NUR ---
MIDLINE INCISION, ANTERIOR CHEST AND CHEST TUBE STUMP CLEANSED WITH HIBICLENS SOLUTION AND COVERED WITH DRESSING, OLD DRESSING MODERATELY SATURATED WITH SEROSANGUINEOUS FLUID.
[2019-03-07 05:35] LABS: Basophils # (auto) 0 uL; Basophils % (auto) 0.3 % (0.0-2.0); Eosinophils # (auto) 0.3 uL; Eosinophils % (auto) 4.3 % (0.0-7.0); Hematocrit 32.1 % (41.0-53.0); Hemoglobin 10.7 g/dL (13.5-17.5); Lymphocytes # (auto) 1.1 uL; Lymphocytes % (auto) 15.1 % (10.0-50.0); Mean Corpuscular Hgb Conc. 33.5 g/dL (32.0-36.0); Mean Corpuscular Volume 95.4 fL (80.0-100.0); Monocytes % (auto) 13.5 % (0.0-12.0); Neutrophils # (auto) 4.7 uL; Neutrophils % (auto) 66.8 % (37.0-80.0); Nucleated Red Blood Cells % 0.1 %; Platelet Count (auto) 138 10^3/uL (140-450); Red Blood Cells 3.36 10^6/uL (4.5-5.90); Red Cell Distribution Width 17.8 % (11.8-14.3)
[2019-03-07 05:54] LABS: BUN/Creatinine Ratio 27.2; Calcium 8.9 mg/dL (8.5-10.1); Potassium 3.6 mmol/L (3.5-5.1)
[2019-03-07] MEDS: ALBUTEROL SULF 2.5 MG/0.5ML(0.5%) NEB SOLN NEB SCH ×5 (06:17→21:50)
[2019-03-07] MEDS: IPRATROPIUM BROM 0.5 MG/2.5ML INH SOL NEB SCH ×5 (06:17→21:50)
--- NOTE | 2019-03-07 07:50 | NUR ---
REPORT RECEIVED FROM KALA RNMAHI. PT RESTING IN BED, WATCHING TV WITH NO COMPLAINTS.
--- NOTE | 2019-03-07 08:30 | NUR ---
ASSESSMENT PT AWAKE AND A/O X4. ABLE TO FOLLOW SIMPLE COMMANDS. LUNGS CLEAR THROUGHOUT BUT DIMINISHED AT THE BASES. O2 AT 4 L/M VIA OXYMIZER WITH O2 SAT OF 100%. TELE SR AT 69. PALPABLE PULSES TO ALL EXTREMITIES. NO EDEMA NOTED. MIDSTERNAL INCISION, OPEM TO AIR, AND WITH DERMABOND IN PLACE AND WOUND EDGES WELL APPROXIMATED. DRESSING TO MID UPPER ABD/LOWER CHEST IS CLEAN AND DRY. DENIES ANY PAIN. ABD SOFT WITH + BOWEL SOUNDS. PHAM DRAINING LIGHT WHITNEY COLORED URINE. NIGHT RN PAGED DR GUZMAN, NO RESPONSE YET. LAST BM WAS EARLIER THIS AM.
[2019-03-07] MEDS: FUROSEMIDE 40 MG TAB PO SCH (09:05)
[2019-03-07] MEDS: Ensure HIGH Protein Chocolate 8oz Bottle PO SCH ×3 (09:06→18:30)
--- NOTE | 2019-03-07 09:50 | NUR ---
PT TO BATHROOM WITH ASSIST AND USING WALKER. HAD A SMALL FORMED BROWN BM. ASSISTED TO THE CHAIR.
[2019-03-07] MEDS: POTASSIUM CHL 20 Meq TABLET PO SCH (10:46)
[2019-03-07] MEDS: PANTOPRAZOLE 40 MG TAB PO SCH (10:46)
[2019-03-07] MEDS ORDERED: LEVOFLOXACIN 500MG 100 ML IV ONE (11:30)
[2019-03-07] MEDS: HYDROcodone-ACET 5/325MG TAB PO PRN ×3 (11:34→22:43)
[2019-03-07] MEDS: CHLORHEXIDINE 0.12% ORAL rinse 473ML MT SCH ×2 (11:34→22:00)
--- NOTE | 2019-03-07 13:00 | NUR ---
EATING LUNCH WITH NO C/O PAIN. CONTINUE TO MONITOR.
--- NOTE | 2019-03-07 15:00 | NUR ---
PT AMBULATED WITH P.T. USING WALKER AND WEARING O2 AT 4L VIA OXYMIZER. TOLERATED 10 LAPS AROUND THE RN STATION AND THEN BACK TO BED.
--- NOTE | 2019-03-07 16:00 | NUR ---
PT VISITING WITH HIS A THE BEDSIDE.
[2019-03-07] MEDS: TAMSULOSIN HYDROCHLORIDE 0.4 MG CAP PO SCH (17:27)
--- NOTE | 2019-03-07 17:30 | NUR ---
PT C/O LOWER ABD "BLADDER PAIN" 01/15. PHAM DRAINING VERY LIGHT YELLOW URINE. MEDICATED WITH NORCO 5/325 ONE TABLET PO AND STARTED CBI AT SLOW RATE.
--- NOTE | 2019-03-07 19:30 | NUR ---
OPENING SHIFT NOTE PT AWAKE AND A/O X4. ABLE TO FOLLOW SIMPLE COMMANDS. LUNGS CLEAR THROUGHOUT BUT DIMINISHED AT THE BASES. O2 AT 4 L/M VIA OXYMIZER WITH O2 SAT OF 93%. SR ON ROVING CAN TENDER. PALPABLE PULSES X4 EXTREMITIES. NO EDEMA NOTED. MIDSTERNAL INCISION, OPEN TO AIR, AND WITH DERMABOND IN PLACE AND WOUND EDGES WELL APPROXIMATED. DRESSING TO MID UPPER ABD/LOWER CHEST IS CLEAN AND DRY. DENIES ANY PAIN. ABD SOFT WITH + BOWEL SOUNDS. PHAM CATHETER PATENT AND DRAINING PALE YELLOW URINE WITH SEDIMENT AND PINK TINGED, TO GRAVITY. LAST BM NOW. ASSISTED TO BATHROOM. EDUCATED PT CLOCK SMITH LIGHT AND NOT TO GET UP WITHOUT ASSISTANCE, VERBALIZED UNDERSTANDING. BED IN LOWEST LOCKED POSITION, IN FULL VIEW OF NURSES STATION. NO PAIN OR DISTRESS AT THIS TIME. VSS, WILL CONTINUE TO MONITOR.
[2019-03-08] VITALS (10 sets, daily range): BP systolic 107–131; BP diastolic 58–67
[2019-03-08 05:47] LABS: Basophils # (auto) 0 uL; Basophils % (auto) 0.4 % (0.0-2.0); Eosinophils # (auto) 0.2 uL; Hematocrit 29.1 % (41.0-53.0); Hemoglobin 9.6 g/dL (13.5-17.5); Lymphocytes # (auto) 0.5 uL; Lymphocytes % (auto) 8.9 % (10.0-50.0); Mean Corpuscular Hemoglobin 31.5 pg (28.0-32.0); Mean Corpuscular Volume 95.7 fL (80.0-100.0); Monocytes # (auto) 0.8 uL; Monocytes % (auto) 12.9 % (0.0-12.0); Neutrophils # (auto) 4.4 uL; Neutrophils % (auto) 73.8 % (37.0-80.0); Platelet Count (auto) 121 10^3/uL (140-450); Red Blood Cells 3.04 10^6/uL (4.5-5.90); Red Cell Distribution Width 17.4 % (11.8-14.3); White Blood Cell 5.9 10^3/uL (4.4-10.8)
[2019-03-08] MEDS: ALBUTEROL SULF 2.5 MG/0.5ML(0.5%) NEB SOLN NEB SCH ×5 (05:52→22:06)
[2019-03-08] MEDS: IPRATROPIUM BROM 0.5 MG/2.5ML INH SOL NEB SCH ×5 (05:52→22:06)
[2019-03-08 06:07] LABS: Potassium 3.5 mmol/L (3.5-5.1)
[2019-03-08 06:14] LABS: BUN/Creatinine Ratio 26.9; Calcium 8.2 mg/dL (8.5-10.1)
[2019-03-08] MEDS: FUROSEMIDE 40 MG TAB PO SCH (06:32)
--- NOTE | 2019-03-08 07:30 | NUR ---
RECEIVED PATIENT GOING BACK TO THE BED AFTER GETTING UP TO THE BR WITH MINIMAL HELP, PATIENT GETS A LITTLE SOB WITH WALKING, O2 AT 3L BY THE OXYMIZER, HAS A THREE WAY PHAM WITH CBI INFUSING, SALINE LOCK TO THE RT HAND 20G AND RFA 22G BOTH FLUSHED AND PATENT, DENIES PAIN TO THE CHEST
[2019-03-08] MEDS: Ensure HIGH Protein Chocolate 8oz Bottle PO SCH ×3 (08:00→17:49)
--- NOTE | 2019-03-08 08:30 | NUR ---
OFFERED PATIENT BREAKFAST, BUT STATES HE DOESN'T WANT ANYTHING, JUST LIKES DRINKING THE ENSURE
--- NOTE | 2019-03-08 09:30 | NUR ---
BREATHING TREATMENT BEING GIVEN
--- NOTE | 2019-03-08 10:10 | NUR ---
EXPLAIN THE MEDICATIONS TO THE PATIENT REGARDING THE DOSAGE, USAGE AND THE SIDE EFFECTS, VERBALIZED UNDERSTANDING AND MEDS GIVEN ORDERED
[2019-03-08] MEDS: LEVOFLOXACIN 500MG 100 ML IV SCH (10:12)
[2019-03-08] MEDS: PANTOPRAZOLE 40 MG TAB PO SCH (10:12)
[2019-03-08] MEDS: POTASSIUM CHL 20 Meq TABLET PO SCH (10:13)
[2019-03-08] MEDS: CHLORHEXIDINE 0.12% ORAL rinse 473ML MT SCH ×2 (10:16→22:12)
--- NOTE | 2019-03-08 11:00 | NUR ---
AND SON IN TO SEE THE PATIENT
--- NOTE | 2019-03-08 11:04 | NUR ---
AIDA SINGH IN TO SEE THE PATIENT AND STATED TO STOP THE CBI AND IF THE PATIENT STATES HAVING PROBLEMS AGAIN TO RESTART THE CBI Addendum: 03/08/19 at 1108 by Delaney Mcdonald RN CHANGE THE TIME TO 1015
--- NOTE | 2019-03-08 12:25 | NUR ---
SAT UP IN BED AND ATE 10% OF HIS LUNCH, AT THE BEDSIDE
--- NOTE | 2019-03-08 13:10 | NUR ---
Guillermina LR IN TO SEE THE PATIENT AND ORDERED LASIX
[2019-03-08] MEDS ORDERED: FUROSEMIDE 20 MG/2 ML VIAL IV ONE (13:15)
[2019-03-08] MEDS ORDERED: POTASSIUM CHL 20 Meq TABLET PO ONE ×2 (13:15→15:00)
--- NOTE | 2019-03-08 14:30 | NUR ---
UP TO THE BR TO HAVE A BM, PATIENT WALKS WITH WALKER
--- NOTE | 2019-03-08 14:45 | NUR ---
BACK TO BED DIDN'T HAVE A BM
--- NOTE | 2019-03-08 14:48 | NUR ---
BREATHING TREATMENT BEING GIVEN,
--- NOTE | 2019-03-08 14:49 | NUR ---
MORE FAMILY IN TO SEE THE PATIENT
--- NOTE | 2019-03-08 15:35 | NUR ---
TYLENOL GIVEN FOR PAIN 7/10 TO THE CHEST
--- NOTE | 2019-03-08 16:00 | NUR ---
FAMILY LEFT AND WENT HOME, PATIENT SITTING UP IN BED
--- NOTE | 2019-03-08 16:20 | NUR ---
PATIENT SITTING UP IN BED WITH EYES CLOSED APPEARS TO BE SLEEPING
--- NOTE | 2019-03-08 16:34 | NUR ---
PT PATIENT ASKED TO SKIP PHYSICAL THERAPY DUE TO CHEST PAIN TODAY. JEREMIAH AVELAR WAS NOTIFIED. Addendum: 03/08/19 at 1635 by ABBI BAILON PTT Amended: Links added.
--- NOTE | 2019-03-08 17:14 | NUR ---
PATIENT STATES HE FEELS BETTER AFTER TAKING A LITTLE NAP HIS CHEST PAIN IS GONE
[2019-03-08] MEDS: TAMSULOSIN HYDROCHLORIDE 0.4 MG CAP PO SCH (17:45)
--- NOTE | 2019-03-08 18:00 | NUR ---
WATCHING TV, FAMILY BACK TO VISIT
--- NOTE | 2019-03-08 18:30 | NUR ---
HAVING DRAINAGE FROM THE CHEST TUBE SITE, DRESSING CHANGED USING STERILE TECHNIQUE , PATIENT SAT UP IN BED TO EAT HIS DINNER, O2 AT 3L BY THE OXYMIZER, PHAM TO GRAVITY, RT HAND 20G SALINE LOCK AND RFA 22G SALINE LOCK BOTH FLUSHED AND PATENT, NOT COMPLAINING OF PAIN AT THIS TIME, WILL CONTINUE TO MONITOR AND GIVE REPORT TO THE NEXT SHIFT
--- NOTE | 2019-03-08 19:00 | NUR ---
OPENING NOTE ASSUMED CARE OF PATIENT AT THIS TIME. REPORT RECEIVED FROM DAY SHIFT RN. POC REVIEWED. HEAD TO TOE ASSESSMENT COMPLETE, SEE INTERVENTION SPREADSHEET FOR COMPLETE DETAILS. RECEIVED PT ALERT AND ORIENTED X4. RECEIVED PT WITH STABLE VSS. RECEIVED PT ON 3 LTS OXYMIZER. PT HAS SOB WITH EXERTION. SURGICAL INCISIONS CDI. IV SITES BENIGN. RECEIVED PT WITH COUDE PHAM. BED LOCKED AND IN LOWEST POSITION, SAFETY PRECAUTIONS IN PLACE. WILL MONITOR PT CAREFULLY.
--- NOTE | 2019-03-08 20:30 | NUR ---
PT ASSISTED TO TOILET AND RETURNED TO BED WITH NO INCIDENT
[2019-03-08] MEDS: HYDROcodone-ACET 5/325MG TAB PO PRN (22:12)
[2019-03-09] VITALS (12 sets, daily range): BP systolic 107–137; BP diastolic 44–77
--- NOTE | 2019-03-09 05:23 | NUR ---
PT ASSISTED TO TOILET. PATIENT HAD BM. PT RETURNED TO BED WITH NO INCIDENT.
[2019-03-09] MEDS: ALBUTEROL SULF 2.5 MG/0.5ML(0.5%) NEB SOLN NEB SCH ×4 (05:32→22:21)
[2019-03-09] MEDS: IPRATROPIUM BROM 0.5 MG/2.5ML INH SOL NEB SCH ×4 (05:33→22:21)
[2019-03-09 05:51] LABS: Calcium 8.3 mg/dL (8.5-10.1); Potassium 3.9 mmol/L (3.5-5.1)
[2019-03-09 05:59] LABS: BUN/Creatinine Ratio 25.6
[2019-03-09] MEDS: FUROSEMIDE 40 MG TAB PO SCH (07:28)
--- NOTE | 2019-03-09 08:00 | NUR ---
Opening Shift Note Assumed care of patient, awake and alert. Patient A&Ox4. Patient on the monitor. Patient on 3L Oxymizer saturation 96%. IV Right hand 20G saline locked and right forearm 22G saline locked, both IV's patent, clean, dry, and intact. Gambino to gravity. No S/S of distress/SOB or pain. Instructed on POC and to call for assist. Bed locked and in the lowest position, side rails up x2, call light with in reach. Will continue to monitor.
--- NOTE | 2019-03-09 08:30 | NUR ---
Patient sitting up in bed eating breakfast independently. Will continue to monitor.
[2019-03-09] MEDS: PANTOPRAZOLE 40 MG TAB PO SCH (09:23)
[2019-03-09] MEDS: POTASSIUM CHL 20 Meq TABLET PO SCH (09:23)
[2019-03-09] MEDS: LEVOFLOXACIN 500MG 100 ML IV SCH (09:23)
[2019-03-09] MEDS: Ensure HIGH Protein Chocolate 8oz Bottle PO SCH ×3 (09:24→17:34)
[2019-03-09] MEDS: CHLORHEXIDINE 0.12% ORAL rinse 473ML MT SCH ×2 (09:24→22:52)
--- NOTE | 2019-03-09 10:00 | NUR ---
Medication dosages, usages, and side effects, explained to patient. Patient verbalized understanding. Will continue to monitor.
--- NOTE | 2019-03-09 10:30 | NUR ---
Dr. Yañez at bedside.
[2019-03-09] MEDS ORDERED: cefTRIAXone 1GM/50ML D5W 50 ML IV ONE (10:45)
--- NOTE | 2019-03-09 11:20 | NUR ---
PT assisted patient walking around nurses station a total of 8 times. Patient is standby assist. Patient back in bed and resting now.
--- NOTE | 2019-03-09 12:30 | NUR ---
Patient sitting up in bed eating lunch independently. Will continue to monitor.
--- NOTE | 2019-03-09 14:30 | NUR ---
Patient sitting up in bed talking with family. No S/S of pain/SOB or distress. Will continue to monitor.
--- NOTE | 2019-03-09 14:35 | NUR ---
Nutrition Follow-up Notes Wt.: 62.9 kg Pt's sleeping during rounds this morning. pt with no signs of distress noted earlier, currently on Mechanical Soft diet with Ensure High Prot 1 carton TID has inadequate PO of < 505 x 6 per RN doc Est. Needs: 1750 kcal to 2100 kcal (25-30 kcal/kgBW), 56 gms to 70 gms pro (0.8-1.0 gms/kgBW). Will continue to monitor pertinent labs and reassess nutrient need prn Labs: CA 8.3 L, BUN 21 H Skin: Robin scale 15, mod risk, pt's medial chest insertion Chest tube per documentation clerk. GI: Pt had 1 BM yesterday per documentation clerk. PES: Increased nutrient needs r/t acute/chronic medical condition aeb s/p surgery. s/p extubation, hx of wt loss. Altered nutrition related lab values r/t current/chronic medical condition aeb hyperglycemia, hyperchloremia, elev. renal labs, Will continue to monitor PO intake, pertinent labs, skin status and weight trends. F/u in 3 to 5 days. Additional Recommendation: 1.) Consider Mechanical Soft Cardiac: 2 gms Na, Low Chol, Low Fat diet. 2.) Continue close supervision and feeding assistance prn during meals. 3.) If pt's PO intake inadequate (<75%), consider appetite stimulant prn to improve PO intake .4.) Refer to RD for further nutrition educ. and weight monitoring upon discharge. 5.) Continue current plan of care.
[2019-03-09] MEDS ORDERED: ACETAMINOPHEN 500 MG TAB PO PRN (17:00)
--- NOTE | 2019-03-09 17:15 | NUR ---
Patient sitting up in bed talking with family. No S/S of pain/SOB or distress. Will continue to monitor.
[2019-03-09] MEDS: TAMSULOSIN HYDROCHLORIDE 0.4 MG CAP PO SCH (17:33)
[2019-03-09] MEDS: ASPirin-EC 81 mg tab PO SCH (17:33)
[2019-03-09] MEDS: HYDROcodone-ACET 5/325MG TAB PO PRN (17:59)
--- NOTE | 2019-03-09 18:30 | NUR ---
End of shift note: Patient sitting up in bed eating dinner independently. Patient A&Ox4. Patient on the monitor. Patient on 3L Oxymizer saturation 97%. IV Right hand 20G saline locked and right forearm 22G saline locked, both IV's patent, clean, dry, and intact. Gambino to gravity. No S/S of distress/SOB or pain. Bed locked and in the lowest position, side rails up x2, call light with in reach. Report to be given to shift commander RN. Will continue to monitor.
--- NOTE | 2019-03-09 23:00 | NUR ---
pts grandson at bedside
[2019-03-10] VITALS (10 sets, daily range): BP systolic 116–135; BP diastolic 61–68
--- NOTE | 2019-03-10 01:00 | NUR ---
pt assisted out of bed and ambulated to restroom.
--- NOTE | 2019-03-10 03:00 | NUR ---
pt assisted out of bed and ambulated to restroom. pt ambulated to bed and assisted back into bed.no ss of distress at this time
[2019-03-10] MEDS: FUROSEMIDE 40 MG TAB PO SCH (06:42)
--- NOTE | 2019-03-10 06:50 | NUR ---
Pt received a complete linen change and CHG bath.
[2019-03-10] MEDS: IPRATROPIUM BROM 0.5 MG/2.5ML INH SOL NEB SCH ×5 (06:52→22:30)
[2019-03-10] MEDS: ALBUTEROL SULF 2.5 MG/0.5ML(0.5%) NEB SOLN NEB SCH ×5 (06:52→22:30)
[2019-03-10] MEDS: Ensure HIGH Protein Chocolate 8oz Bottle PO SCH ×3 (08:00→18:00)
--- NOTE | 2019-03-10 08:00 | NUR ---
Opening Shift Note Assumed care of patient, awake and alert. Patient A&Ox4. Patient on the monitor. Patient on 3L Oxymizer saturation 98%. IV Right hand 20G saline locked and right forearm 22G saline locked, both IV's patent, clean, dry, and intact. Gambino to gravity. No S/S of distress/SOB or pain. Instructed on POC and to call for assist. Bed locked and in the lowest position, side rails up x2, call light with in reach. Will continue to monitor.
--- NOTE | 2019-03-10 08:30 | NUR ---
Patient sitting up in bed eating breakfast independently. Will continue to monitor.
[2019-03-10] MEDS: ASPirin-EC 81 mg tab PO SCH (09:50)
[2019-03-10] MEDS: POTASSIUM CHL 20 Meq TABLET PO SCH (09:51)
[2019-03-10] MEDS: CLOPIDOGREL BISULFATE 75 MG TAB PO SCH (09:51)
[2019-03-10] MEDS: PANTOPRAZOLE 40 MG TAB PO SCH (09:51)
[2019-03-10] MEDS: CHLORHEXIDINE 0.12% ORAL rinse 473ML MT SCH ×2 (10:00→21:48)
--- NOTE | 2019-03-10 10:00 | NUR ---
Medication dosages, usages, and side effects, explained to patient. Patient verbalized understanding. Will continue to monitor.
[2019-03-10] MEDS: cefTRIAXone 1GM/50ML D5W 50 ML IV SCH (10:42)
--- NOTE | 2019-03-10 12:30 | NUR ---
Patient resting at this time. States he will eat his lunch later. Will continue to monitor.
[2019-03-10] MEDS: HYDROcodone-ACET 5/325MG TAB PO PRN (14:53)
--- NOTE | 2019-03-10 15:26 | NUR ---
PT assisted patient walking around nurses station a total of 10 times. Patient is standby assist. Patient back in bed and resting now.
--- NOTE | 2019-03-10 16:30 | NUR ---
Patient resting at this time no S/S of pain/SOB or distress. Will continue to monitor.
[2019-03-10] MEDS: TAMSULOSIN HYDROCHLORIDE 0.4 MG CAP PO SCH (18:22)
--- NOTE | 2019-03-10 18:30 | NUR ---
End of shift note: Patient sitting up in bed eating dinner independently. Patient A&Ox4. Patient on the monitor. Patient on 3L Oxymizer saturation 98%. IV Right hand 20G saline locked and right forearm 22G saline locked, both IV's patent, clean, dry, and intact. Gambino to gravity. No S/S of distress/SOB or pain. Bed locked and in the lowest position, side rails up x2, call light with in reach. Report to be given to power and recovery shift engineer RN. Will continue to monitor.
--- NOTE | 2019-03-10 19:10 | NUR ---
OPENING SHIFT RECEIVED REPORT FROM DAY SHIFT RN. ASSUMED CARE OF PATIENT. PATIENT IN BED WATCHING TV WITH NO SIGNS OR SYMPTOMS OF SOB, PAIN OR DISTRESS. CURRENTLY ON 3L OXYMIZER, 02 SAT - 99%. RIGHT HAND AND RIGHT FOREARM IV - CLEAN/DRY/INTACT. PHAM HUNG TO GRAVITY ON BED RAIL. MIDLINE INCISION - CLEAN AND OPEN TO AIR, NO SIGN OF REDNESS. S/P CHEST TUBE DRESSING - CLEAN/DRY/INTACT. REPOSITIONED FOR COMFORT. BED IN LOWEST POSITION, SIDE RAILS UP X2, CALL LIGHT WITHIN REACH. WILL CONTINUE TO MONITOR.
[2019-03-11] VITALS (10 sets, daily range): BP systolic 109–141; BP diastolic 59–73
[2019-03-11] MEDS: FUROSEMIDE 40 MG TAB PO SCH (06:23)
[2019-03-11] MEDS: IPRATROPIUM BROM 0.5 MG/2.5ML INH SOL NEB SCH ×5 (06:29→22:27)
[2019-03-11] MEDS: ALBUTEROL SULF 2.5 MG/0.5ML(0.5%) NEB SOLN NEB SCH ×5 (06:29→22:27)
--- NOTE | 2019-03-11 06:30 | NUR ---
MORNING CARE PATIENT PERFORMED MORNING CARE AND GOT UP TO THE RESTROOM WITH STANDBY ASSIST. PARTIAL LINEN CHANGE. SKIN REASSESSED AT THIS TIME. WILL CONTINUE TO MONITOR. Addendum: 03/11/19 at 0732 by JONAH GÓMEZ RN RN TIME CORRECTION - 0610
--- NOTE | 2019-03-11 06:30 | NUR ---
CHEST PRESSURE ASSISTED PATIENT BACK TO BED. PATIENT COMPLAINED OF CHEST PRESSURE. EKG PERFORMED AND SHOWED NO ABNORMALITIES. 0.4MG NITRO GIVEN UNDER THE TONGUE. WILL CONTINUE TO MONITOR.
--- NOTE | 2019-03-11 06:39 | NUR ---
Respiratory note: PLACED PATIENT ON B6 BIPAP FITTED WITH A MEDIUM FULL FACE MASK AND VENTILATED WITH THE CHARTED SETTINGS. SPO2 97%, LUNG SOUNDS COARSE RHONCHI T/O. PATIENT IS ALERT/ORIENTED AND TOLERATING BIPAP WELL. SKIN IS CLEAR/CLEAN AROUND MASK. NO SIGNS OF LOSS IN SKIN INTEGRITY. BIPAP PLUGGED INTO RED OUTLET AND ALL ALARMS ARE SET AND AUDIBLE. WILL CONTINUE TO ASSESS PATIENT WELL BIPAP FUNCTION. Lookery RUN INLINE.
--- NOTE | 2019-03-11 06:55 | NUR ---
Morning care Pt performed morning care with assistance. Partial linen change.
--- NOTE | 2019-03-11 07:28 | NUR ---
END OF SHIFT REPORT GIVEN TODAY SHIFT RN. CARE ENDORSED.
--- NOTE | 2019-03-11 07:50 | NUR ---
Opening Shift Note Assumed care of patient, awake and alert, lying on the bed with elevated HOB. No S/S of distress or pain, but still feeling SOB, on Oxymizer 3 LPM, O2 saturation 95-96%. Instructed on POC and to call for assist PRN, will continue to monitor for changes Q1hr and PRN.
[2019-03-11] MEDS: Ensure HIGH Protein Chocolate 8oz Bottle PO SCH ×3 (08:00→18:48)
--- NOTE | 2019-03-11 08:20 | NUR ---
Breakfast tray provided, patient stated that will eat later, will keep Ensure and milk on the table, still SOB and wants to rest.
[2019-03-11] MEDS: CLOPIDOGREL BISULFATE 75 MG TAB PO SCH (09:20)
[2019-03-11] MEDS: ASPirin-EC 81 mg tab PO SCH (09:20)
[2019-03-11] MEDS: cefTRIAXone 1GM/50ML D5W 50 ML IV SCH (09:20)
[2019-03-11] MEDS: POTASSIUM CHL 20 Meq TABLET PO SCH (09:21)
[2019-03-11] MEDS: PANTOPRAZOLE 40 MG TAB PO SCH (09:21)
[2019-03-11] MEDS: CHLORHEXIDINE 0.12% ORAL rinse 473ML MT SCH ×2 (09:21→22:48)
--- NOTE | 2019-03-11 09:30 | NUR ---
Patient walked to the restroom, tolerated well, on Oxymizer while walking, no SOB noted, no BM at this time, went back to bed and sitting at the edge of the bed for snack, no N/V noted.
--- NOTE | 2019-03-11 10:00 | NUR ---
IV removal from right FA IV DC'd with sterile technique, catheter fully intact. Pressure dressing applied to site. Patient tolerated procedure well.
--- NOTE | 2019-03-11 10:15 | NUR ---
Breathing treatment given with Bipap, patient tolerated well, sleeping at this time, RR 18 /min, STV 350-450, O2 saturation 99-100I with FiO2 0.3. Will continue to monitor and care.
--- NOTE | 2019-03-11 11:00 | NUR ---
Dr. Nowak at the bedside, received an order to stop Plavix, patient made aware.
--- NOTE | 2019-03-11 11:30 | NUR ---
Patient woke up at this time, would like to go to the restroom, stand by Bipap at this time then change to Oxymizer 3 LPM, patient walked to the restroom with Oxymizer for BM, no BM noted at this time, no gas as well, no N/V noted. Went back to the bed, still having SOB while walking, stated that resting on the bed will feeling better.
[2019-03-11] MEDS ORDERED: FUROSEMIDE 20 MG/2 ML VIAL IV ONE (12:00)
[2019-03-11] MEDS ORDERED: methylPREDNISolone SOD SUCC 40 MG/ML VL IV ONE (12:00)
[2019-03-11] MEDS ORDERED: POTASSIUM CHL 20 Meq TABLET PO ONE (12:00)
--- NOTE | 2019-03-11 12:00 | NUR ---
Dr. Yañez at the bedside, seen and examined patient at this time, plan of care discussed with patient, patient made aware, received order for Solu medrol and Lasix, patient made aware, will continue to monitor and care.
[2019-03-11] MEDS ORDERED: LEVOFLOXACIN 500 MG TAB PO ONE (12:15)
--- NOTE | 2019-03-11 13:09 | NUR ---
Patient sitting at the edge of the bed for having Lunch, on Oxymizer 3 lpm O2 saturation 93-96%, will continue to monitor.
--- NOTE | 2019-03-11 14:30 | NUR ---
His family at the bedside, patient lying on the bed, talking to his family, on Oxymizer 3 LPM, O2 saturation 95-96%.
--- NOTE | 2019-03-11 16:40 | NUR ---
Patient walking with PT at the hallway, tolerated well.
--- NOTE | 2019-03-11 16:40 | NUR ---
Discharge planning per SS consult, patient has orders for a home health evaluation and a rollator walker. Referral was sent to [facility] for home health, and [facility] for the walker.
[2019-03-11] MEDS: TAMSULOSIN HYDROCHLORIDE 0.4 MG CAP PO SCH (18:48)
--- NOTE | 2019-03-11 18:58 | NUR ---
Patient sitting up on the bed for having dinner, no N/V noted, will continue to monitor.
--- NOTE | 2019-03-11 19:10 | NUR ---
OPENING SHIFT RECEIVED REPORT FROM DAY SHIFT RN. ASSUMED CARE OF PATIENT. PATIENT IN BED WATCHING TV WITH NO SIGNS OR SYMPTOMS OF SOB, PAIN OR DISTRESS. CURRENTLY ON 3L 0XYMIZER, 02 SAT - 97%. RIGHT HAND IV - CLEAN/DRY/INTACT. PHAM HUNG TO GRAVITY ON BED RAIL. UPDATED PATIENT ON PLAN OF CARE. BED IN LOWEST POSITION, SIDE RAILS UP X2, CALL LIGHT WITHIN REACH. WILL CONTINUE TO MONITOR.
[2019-03-11] MEDS: HYDROcodone-ACET 5/325MG TAB PO PRN (19:13)
[2019-03-11] MEDS: methylPREDNISolone SOD SUCC 40 MG/ML VL IV SCH (21:48)
[2019-03-12] VITALS (12 sets, daily range): BP systolic 114–134; BP diastolic 51–75
--- NOTE | 2019-03-12 05:00 | NUR ---
AMBULATION PATIENT AMBULATED AROUND THE NURSES STATION 12 TIMES WITH ASSISTANCE. PATIENT TOLERATED WELL. NO SIGNS OR SYMPTOMS OF SOB, PAIN OR DISTRESS. WILL CONTINUE TO MONITOR.
--- NOTE | 2019-03-12 05:45 | NUR ---
MORNING CARE PERFORMED MORNING CARE WITH CHG WIPES AND WASH CLOTHS TO THE FACE. PARTIAL LINEN CHANGE AND GOWN CHANGE. REPOSITIONED FOR COMFORT. BED IN LOWEST POSITION, SIDE RAILS UP X2, CALL LIGHT WITHIN REACH. WILL CONTINUE TO MONITOR.
[2019-03-12] MEDS: IPRATROPIUM BROM 0.5 MG/2.5ML INH SOL NEB SCH ×5 (05:46→22:05)
[2019-03-12] MEDS: ALBUTEROL SULF 2.5 MG/0.5ML(0.5%) NEB SOLN NEB SCH ×6 (05:46→22:05)
[2019-03-12 05:49] LABS: BUN/Creatinine Ratio 28.4; Calcium 8.4 mg/dL (8.5-10.1); Potassium 4.4 mmol/L (3.5-5.1)
[2019-03-12] MEDS: FUROSEMIDE 40 MG TAB PO SCH (06:36)
--- NOTE | 2019-03-12 07:24 | NUR ---
END OF SHIFT REPORT GIVEN TO DAY SHIFT RN. CARE ENDORSED.
--- NOTE | 2019-03-12 07:45 | NUR ---
Opening Shift Note Assumed care of patient, awake and alert, sleeping and woke up when I calling his name. No S/S of distress/SOB or pain, patient stated that he feeling better, walked around nursing station early this morning. Instructed on POC and to call for assist PRN, will continue to monitor for changes Q1hr and PRN.
[2019-03-12] MEDS: Ensure HIGH Protein Chocolate 8oz Bottle PO SCH ×3 (08:05→17:16)
--- NOTE | 2019-03-12 08:50 | NUR ---
Patient sitting at the edge of the bed, had breakfast around 75% of the breakfast tray, no complaining of N/V noted. Walked to the restroom at this time, tolerated well.
[2019-03-12] MEDS: PANTOPRAZOLE 40 MG TAB PO SCH (09:32)
[2019-03-12] MEDS: methylPREDNISolone SOD SUCC 40 MG/ML VL IV SCH ×2 (09:32→21:58)
[2019-03-12] MEDS: ASPirin-EC 81 mg tab PO SCH (09:32)
[2019-03-12] MEDS: LEVOFLOXACIN 500 MG TAB PO SCH (09:33)
--- NOTE | 2019-03-12 10:00 | NUR ---
Decreased Oxymizer to 2 LPM, O2 saturation 96-98%. Will continue to monitor and care.
--- NOTE | 2019-03-12 10:13 | NUR ---
Discharge planning per SS consult, patient has orders for a rollator walker, and a home safety eval. Referral sent to [facility] for approval, also to [facility]. Referral was approved. [facility] is the assigned home health and for the walker, the request was sent to [facility]. Placed a call to [facility], spoke with Razia and was advised that they will deliver the walker today 11.5.19 between 12-2pm to bedside in room 261. Placed a follow up call to [facility], spoke with Darcie and was advised that they will accept this patient on dc and that start of care will be within 24-48 hours.
[2019-03-12] MEDS: POTASSIUM CHL 20 Meq TABLET PO SCH (10:23)
[2019-03-12] MEDS: CHLORHEXIDINE 0.12% ORAL rinse 473ML MT SCH ×2 (10:23→21:59)
--- NOTE | 2019-03-12 11:10 | NUR ---
Dr. Roth at the bedside, seen and examined patient at this time, his and son in law also at the bedside, plan of care discussed, they made aware and agreed with the plan that plan D/C home with HH tomorrow, patient will follow with Dr. Mancuso at out clinic for huddleston's catheter management, will wait a walker that possible delivery today.
--- NOTE | 2019-03-12 13:49 | NUR ---
Patient cam back from the restroom, then walked with PT, tolerated well. Addendum: 03/12/19 at 1350 by ELIA BETANCOURT RN RN came
--- NOTE | 2019-03-12 14:46 | NUR ---
Nutrition Follow-up Notes Wt.: 62.8 kg as of yesterday Pt's on oxymizer, family members at bedside, denies any discomfort when rounded this morning. Pt states that he usually weighs around 142 lbs, probably lost weight d/t decreased food intake d/t not feeling well few days [employer]. Pt's currently on Mechanical Soft diet with Ensure High Prot 1 carton TID has inadequate PO intake aeb [address] consumed meals (x5) in last 2 days. Est. Needs: 1750 kcal to 2100 kcal (25-30 kcal/kgBW), 56 gms to 70 gms pro (0.8-1.0 gms/kgBW). Will continue to monitor pertinent labs and reassess nutrient need prn Labs: Gluc 130 H, BUN 23 H, Ca 8.4 L; Tot marisabel 1.2 H, AST 42 H Skin: Robin scale 19, low risk, pt's medial chest insertion Chest tube per tar and ammonia pump operator. GI: Pt had 1 BM 03/09/19 per tar and ammonia pump operator. PES: Increased nutrient needs r/t acute/chronic medical condition aeb s/p surgery, s/p extubation, hx of wt loss. Altered nutrition related lab values r/t current/chronic medical condition aeb hyperglycemia, hyperchloremia, elev. renal labs, Will continue to monitor PO intake, pertinent labs, skin status and weight trends. F/u in 3 to 5 days. Rec: 1.) Consider Mechanical Soft Cardiac: 2 gms Na, Low Chol, Low Fat diet. 2.) Continue close supervision and feeding assistance prn during meals. 3.) Refer to RD for further nutrition educ. and weight monitoring upon discharge. 4.) Continue current plan of care.
--- NOTE | 2019-03-12 15:16 | NUR ---
Patient woke up after taking a nap around 2 hours, discontinued Bipap and changed to Oxymizer 2 LPM, patient lying on the bed, did breathing exercise with IS, tolerated well.
[2019-03-12] MEDS: HYDROcodone-ACET 5/325MG TAB PO PRN (17:15)
[2019-03-12] MEDS: TAMSULOSIN HYDROCHLORIDE 0.4 MG CAP PO SCH (17:15)
--- NOTE | 2019-03-12 19:10 | NUR ---
OPENING SHIFT RECEIVED REPORT FROM DAY SHIFT RN. ASSUMED CARE OF PATIENT. PATIENT IN BED WATCHING TV WITH NO SIGNS OR SYMPTOMS OF SOB, PAIN OR DISTRESS. CURRENTLY ON 2L 02 NASAL CANNULA, 02 SAT - 97%. RIGHT HAND IV - CLEAN/DRY/INTACT. PHAM HUNG TO GRAVITY ON BED RAIL. UPDATED PATIENT ON PLAN OF CARE. BED IN LOWEST POSITION, SIDE RAILS UPX2, CALL LIGHT WITHIN REACH. WILL CONTINUE TOMORROW.
[2019-03-13] VITALS: BP 132/65
[2019-03-13 04:00] VITALS: BP 129/74
--- NOTE | 2019-03-13 05:18 | NUR ---
AMBULATION PATIENT REFUSED AMBULATION AT THIS TIME. WILL CONTINUE TO MONITOR.
--- NOTE | 2019-03-13 05:30 | NUR ---
MORNING CARE PERFORMED MORNING CARE WITH WASH CLOTHS. PARTIAL LINEN AND GOWN CHANGED. SKIN REASSESSED AT THIS TIME. WILL CONTINUE TO MONITOR.
--- NOTE | 2019-03-13 07:11 | NUR ---
END OF SHIFT REPORT GIVEN TO DAY SHIFT RN. CARE ENDORSED.
[2019-03-13] MEDS: FUROSEMIDE 40 MG TAB PO SCH (07:30)
[2019-03-13] MEDS: Ensure HIGH Protein Chocolate 8oz Bottle PO SCH ×2 (08:00→12:24)
--- NOTE | 2019-03-13 08:00 | NUR ---
Opening Shift Note Assumed care of patient, awake and alert. Patient A&Ox4. Patient on the monitor. Patient on room air saturation at 94%. IV Right hand 20G saline locked patent, clean, dry, and intact. Gambino to gravity. No S/S of distress/SOB or pain. Instructed on POC and to call for assist. Bed locked and in the lowest position, side rails up x2, call light with in reach. Will continue to monitor.
[2019-03-13 08:02] VITALS: BP 136/68
--- NOTE | 2019-03-13 08:30 | NUR ---
Patient sitting up in bed eating breakfast independently. Will continue to monitor.
[2019-03-13] MEDS: ALBUTEROL SULF 2.5 MG/0.5ML(0.5%) NEB SOLN NEB SCH ×2 (08:39→18:02)
[2019-03-13] MEDS: IPRATROPIUM BROM 0.5 MG/2.5ML INH SOL NEB SCH ×2 (08:40→18:02)
--- NOTE | 2019-03-13 10:00 | NUR ---
Medication dosages, usages, and side effects, explained to patient. Patient verbalized understanding. Will continue to monitor.
[2019-03-13] MEDS: ASPirin-EC 81 mg tab PO SCH (10:19)
[2019-03-13] MEDS: LEVOFLOXACIN 500 MG TAB PO SCH (10:19)
[2019-03-13] MEDS: POTASSIUM CHL 20 Meq TABLET PO SCH (10:19)
[2019-03-13] MEDS: PANTOPRAZOLE 40 MG TAB PO SCH (10:19)
[2019-03-13] MEDS: CHLORHEXIDINE 0.12% ORAL rinse 473ML MT SCH (10:20)
[2019-03-13] MEDS: methylPREDNISolone SOD SUCC 40 MG/ML VL IV SCH (10:20)
[2019-03-13 12:00] VITALS: BP 111/62
--- NOTE | 2019-03-13 12:30 | NUR ---
Patient sitting up in bed eating lunch independently. Will continue to monitor.
--- NOTE | 2019-03-13 14:00 | NUR ---
Patient sitting up in bed watching TV. Patient denies any pain/SOB or distress at this time. Will continue to monitor.
[2019-03-13 16:00] VITALS: BP 125/72
--- NOTE | 2019-03-13 16:30 | NUR ---
Patient watched video on CABG aftercare. Patient verbalized understanding. Will continue to monitor.
--- NOTE | 2019-03-13 17:00 | NUR ---
Patient resting at this time. No S/S of pain/SOB or distress. Will continue to monitor.
[2019-03-13] MEDS: TAMSULOSIN HYDROCHLORIDE 0.4 MG CAP PO SCH (18:00)
--- NOTE | 2019-03-13 18:50 | NUR ---
Patient discharged home. Discharge instructions explained to Patient, Sandie and son. Patient and family verbalized understanding. Right hand 20G IV removed, catheter intact, pressure dressing placed. Gambino changed to Leg bag, no leaking noted. Education on leg bag given to patient and family. Patients prescriptions sent to [facility] pharmacy. Patient did not have co-pay for prescriptions, will tow picker medications tomorrow AM. New non-adhesive dressing placed over patient's chest tube wound sites, extra supplies given to patient and instructions on how to change and to keep wound dry. Patient and family verbalized understanding. Patient taken out via wheel chair by Dagoberto HASSAN. All belongings taken with patient.
== END 2019-03-13 18:54 | disposition home health service (06) | DRG 219 ==
LOC: DOU IN ICU 11:36 → ICU WEST 02-28 08:19 → DOU IN ICU 03-06 18:17
PROVIDERS: ADMIT Internal Medicine; ATTEND Internal Medicine
PROC: 5A1221Z Performance of Cardiac Output, Continuous (ICD-10-PCS; 2019-02-28)
PROC: 02L70CK Occlusion of Left Atrial Appendage with Extraluminal Device, Open Approach (ICD-10-PCS; 2019-02-28)
PROC: B24BZZ4 Ultrasonography of Heart with Aorta, Transesophageal (ICD-10-PCS; 2019-02-28)
PROC: 30233K1 Transfusion of Nonautologous Frozen Plasma into Peripheral Vein, Percutaneous Approach (ICD-10-PCS; 2019-02-28)
PROC: 30233N1 Transfusion of Nonautologous Red Blood Cells into Peripheral Vein, Percutaneous Approach (ICD-10-PCS; 2019-02-28)
PROC: 30233R1 Transfusion of Nonautologous Platelets into Peripheral Vein, Percutaneous Approach (ICD-10-PCS; 2019-02-28)
PROC: 30233M1 Transfusion of Nonautologous Plasma Cryoprecipitate into Peripheral Vein, Percutaneous Approach (ICD-10-PCS; 2019-02-28)
PROC: 5A1945Z Respiratory Ventilation, 24-96 Consecutive Hours (ICD-10-PCS; 2019-02-28)
PROC: 02RF08Z Replacement of Aortic Valve with Zooplastic Tissue, Open Approach (ICD-10-PCS; principal; 2019-02-28 07:19)
PROC: 5A09557 Assistance with Respiratory Ventilation, Greater than 96 Consecutive Hours, Continuous Positive Airway Pressure (ICD-10-PCS; 2019-03-01)
DX: I11.0 Hypertensive heart disease with heart failure (principal); J96.00 Acute respiratory failure, unspecified whether with hypoxia or hypercapnia; I48.20 Chronic atrial fibrillation, unspecified; N39.0 Urinary tract infection, site not specified; J44.1 Chronic obstructive pulmonary disease with (acute) exacerbation; B96.1 Klebsiella pneumoniae [K. pneumoniae] as the cause of diseases classified elsewhere; M79.89 Other specified soft tissue disorders; R31.0 Gross hematuria; I50.43 Acute on chronic combined systolic (congestive) and diastolic (congestive) heart failure; I08.3 Combined rheumatic disorders of mitral, aortic and tricuspid valves; B19.20 Unspecified viral hepatitis C without hepatic coma; D69.6 Thrombocytopenia, unspecified; K44.9 Diaphragmatic hernia without obstruction or gangrene; N40.0 Benign prostatic hyperplasia without lower urinary tract symptoms; I25.10 Atherosclerotic heart disease of native coronary artery without angina pectoris; Z95.3 Presence of xenogenic heart valve; Z98.61 Coronary angioplasty status; Z82.49 Family history of ischemic heart disease and other diseases of the circulatory system; Z82.5 Family history of asthma and other chronic lower respiratory diseases; Z95.1 Presence of aortocoronary bypass graft; Z79.899 Other long term (current) drug therapy; Z95.810 Presence of automatic (implantable) cardiac defibrillator; Z88.6 Allergy status to analgesic agent; Z88.8 Allergy status to other drugs, medicaments and biological substances
CPT/HCPCS: 36415; 36600; 71045; 74176; 80048; 80053; 80061; 81001; 82805; 82962; 83036; 83735; 83880; 84100; 84132; 85025; 85384; 85576; 85610; 85730; 86850; 86900; 86901; 86920; 87070; 87081; 87086; 87088; 87186; 87205; 93005; 94002; 94003; 94640; 94660; 97116; 97163; 97530; C1751; C1768; C9113; G0378; J0153; J0330; J0690; J0696; J1644; J1815; J1956; J2250; J2440; J2704; J2720; J3430; J3480; J7060; P9047

== ENCOUNTER 2019-03-26 13:15 | Inpatient (IN) | payer OTHER ==
[~2019-03-26] VITALS: Ht 165.1 cm; Wt 61.3 kg
[~2019-03-26 13:15] MED LIST changes: -DULO20CA PO; -OMEP20CA74; -TRIA75TA55 PO
[2019-03-26 14:03] LABS: Basophils # (auto) 0 uL; Basophils % (auto) 0.5 % (0.0-2.0); Eosinophils # (auto) 0.2 uL; Eosinophils % (auto) 3.1 % (0.0-7.0); Hematocrit 37.7 % (41.0-53.0); Hemoglobin 12.3 g/dL (13.5-17.5); Lymphocytes # (auto) 0.7 uL; Lymphocytes % (auto) 12.3 % (10.0-50.0); Mean Corpuscular Hemoglobin 31.1 pg (28.0-32.0); Mean Corpuscular Hgb Conc. 32.7 g/dL (32.0-36.0); Monocytes # (auto) 0.5 uL; Monocytes % (auto) 8.8 % (0.0-12.0); Neutrophils # (auto) 4.4 uL; Neutrophils % (auto) 75.3 % (37.0-80.0); Platelet Count (auto) 188 10^3/uL (140-450); Red Blood Cells 3.96 10^6/uL (4.5-5.90); Red Cell Distribution Width 17.6 % (11.8-14.3); White Blood Cell 5.8 10^3/uL (4.4-10.8)
[2019-03-26 14:13] LABS: Albumin 3.4 g/dL (3.4-5.0); Anion Gap 5 (5-15); BUN/Creatinine Ratio 21.7; Blood Alcohol < 3.0 mg/dL (0-5); Blood Urea Nitrogen 20 mg/dL (7-18); Calcium 8.8 mg/dL (8.5-10.1); Carbon Dioxide 29 mmol/L (21-32); Chloride 101 mmol/L (98-107); GFR African American 101 mL/min; GFR Non-African American 84 mL/min; Glucose 96 mg/dL (74-106); Sodium 135 mmol/L (136-145)
[2019-03-26 14:18] LABS: Alanine Aminotransferase 15 U/L (16-61); Alkaline Phosphatase 123 U/L (45-117); Aspartate Aminotransferase 18 U/L (15-37); Bilirubin, Total 0.9 mg/dL (0.2-1.0); Total Protein 7.6 g/dL (6.4-8.2)
[2019-03-26] MEDS ORDERED: ENOXAPARIN SOD 60 MG/0.6 ML SYRINGE SC ONE (16:15)
[2019-03-26] MEDS ORDERED: ASPirin 81 mg TAB PO ONE (16:15)
[2019-03-26 17:24] LABS: Urine Bacteria NONE SEEN /hpf (None Seen); Urine Blood Negative /uL (Negative); Urine Mucus FEW (None Seen); Urine Specific Gravity 1.006 (1.001-1.035); Urine WBC <1 /hpf (0 - 3)
[2019-03-26] MEDS ORDERED: ACETAMINOPHEN 500 MG TAB PO PRN (19:45)
[2019-03-26] MEDS ORDERED: DOCUSATE SOD 100 MG CAP PO PRN (19:45)
[2019-03-26] MEDS ORDERED: ONDANSETRON HCL 4 MG/2 ML VIAL IV PRN (19:45)
[2019-03-26] MEDS ORDERED: NITROGLYCERIN 0.4 MG SL TAB SL PRN (19:45)
[2019-03-26] MEDS ORDERED: HYDROcodone-ACET 5/325MG TAB PO PRN (19:45)
[2019-03-26] MEDS ORDERED: MORPHINE SULF INJ 2 MG/ML SYRINGE 1ML IV PRN ×2 (19:45)
--- NOTE | 2019-03-27 09:10 | NUR ---
ASSESSMENT NOTE PATIENT ARRIVE FROM ER BY [place], ALERT TO SELF, PLACE, CONFUSED ON TIMES, SITUATION, AWARE THAT HE HAVE A HER NAME ADALI, PT IS VERY CALM, COOPERATIVE, NO DISTRESS NOTED, DENIES ANY PAIN 0/10, OR SHORTNESS OF BREATH, PHAM LEG BAG NOTED, URINE APPEAR JUAN WITH A STRONG ODOR, ROOM ORIENTATION GIVEN TO PT, CALL LIGHT WITHIN REACH, SITTER AT BED SIDE AT ALL TIMES WITH FALL RISK PRECAUTIONS.
[2019-03-27 09:15] VITALS: BP 133/78
[2019-03-27 09:28] LABS: Alcohol, Urine < 3.0 mg/dL (0-5); Amphetamine Screen, Urine NEGATIVE (NEGATIVE); Barbiturate Scree,Urine NEGATIVE (NEGATIVE); Benzodiazephine Screen, Urine NEGATIVE (NEGATIVE); Cannabinoid Screen, Urine NEGATIVE (NEGATIVE); Cocaine Screen, Urine NEGATIVE (NEGATIVE); Opiate Scree,Urine NEGATIVE (NEGATIVE); Phencyclidine Screen, Urine NEGATIVE (NEGATIVE)
--- NOTE | 2019-03-27 09:30 | NUR ---
LEG BAG SWITCHED TO GRAVITY BAG, PT MADE AWARE AND WHY, VERBALIS UNDERSTNADING
[2019-03-27] MEDS: LOSARTAN POTASSIUM 25 MG TAB PO SCH (09:33)
[2019-03-27] MEDS: FAMOTIDINE 20 MG TAB PO SCH (09:33)
[2019-03-27] MEDS: ASPirin-EC 81 mg tab PO SCH (09:33)
[2019-03-27] MEDS ORDERED: ATOR10TA52 PO (09:51)
--- NOTE | 2019-03-27 10:08 | NUR ---
SPOKE WITH PATIENT'S PER HER SON REQUEST, MADE AWARE WHERE HER AT, REQUESTED FROM HER TO BRING THE MEDICATIONS LIST
--- NOTE | 2019-03-27 11:30 | NUR ---
PHAM CATHETER IS CLAMPED PER ORDERS, PT AND PT FAMILY AWARE AT BED SIDE
--- NOTE | 2019-03-27 11:50 | NUR ---
DR TORRES AT BED SIDE FOLLOWING UP ON PT, INFORM ME THAT PT IS CLEAR IN HIS POINT OF VIEW
[2019-03-27] MEDS ORDERED: POTA-220 PO (12:06)
[2019-03-27 13:00] VITALS: BP 114/73
--- NOTE | 2019-03-27 13:30 | NUR ---
RELEASED PHAM CATHETER
[2019-03-27] MEDS ORDERED: cefTRIAXone 1GM/50ML D5W 50 ML IV ONE (14:15)
--- NOTE | 2019-03-27 14:15 | NUR ---
PT TOLERATING THE BLADDER TRAINING WELL, CONTINUE MONITORING
--- NOTE | 2019-03-27 14:30 | NUR ---
CLAMP THE HPAM CATHETER, PT CONTINUE TOLERATING WELL
[2019-03-27] MEDS ORDERED: OPTISON 3ml Vial for INJ IV ONE (15:06)
[2019-03-27 17:00] VITALS: BP 132/81
[2019-03-27] MEDS ORDERED: TAMSULOSIN HYDROCHLORIDE 0.4 MG CAP PO SCH (18:00)
--- NOTE | 2019-03-27 18:30 | NUR ---
CLAMP RELEASED WAITED TILL ALL URINE CAME OUT PHAM CATHETER REMOVED, URINAL AT BED SIDE, PT AWARE FAMILY AND SON AT BED SIDE AWARE
--- NOTE | 2019-03-27 19:00 | NUR ---
OPENING NOTE Received report from day shift RN. Patient is A&O X's 1-2. Patient knows his name and birthday. He thought he was at home but reoriented when told he was in the hospital. He was unaware of the year and month. Patient shows no s/s of distress. Bed is in lowest/locked position with side rails up X's 2 and call light is within reach of patient. Sitter is at bedside. Will monitor patient's urine output and continue care.
[2019-03-27 22:00] VITALS: BP 120/67
[2019-03-27] MEDS ORDERED: ATORVASTATIN 20 MG TAB PO SCH (22:00)
[2019-03-28 06:00] VITALS: BP 120/70
[2019-03-28 07:08] LABS: Basophils # (auto) 0 uL; Basophils % (auto) 0.6 % (0.0-2.0); Eosinophils # (auto) 0.2 uL; Eosinophils % (auto) 3.2 % (0.0-7.0); Hematocrit 34.7 % (41.0-53.0); Hemoglobin 11.6 g/dL (13.5-17.5); Lymphocytes # (auto) 0.7 uL; Lymphocytes % (auto) 13.6 % (10.0-50.0); Mean Corpuscular Hemoglobin 31.5 pg (28.0-32.0); Mean Corpuscular Hgb Conc. 33.6 g/dL (32.0-36.0); Monocytes # (auto) 0.5 uL; Neutrophils # (auto) 3.9 uL; Neutrophils % (auto) 72.6 % (37.0-80.0); Platelet Count (auto) 147 10^3/uL (140-450); Red Blood Cells 3.69 10^6/uL (4.5-5.90); Red Cell Distribution Width 17.1 % (11.8-14.3); White Blood Cell 5.4 10^3/uL (4.4-10.8)
[2019-03-28 07:27] LABS: INR 1.19 (0.9-1.15)
[2019-03-28 07:31] LABS: Calcium 8.2 mg/dL (8.5-10.1); Potassium 3.7 mmol/L (3.5-5.1)
[2019-03-28 07:35] LABS: BUN/Creatinine Ratio 27.4
[2019-03-28 08:00] VITALS: BP_SYST 125; BP_SYST 133; BP_DIAS 78; BP_DIAS 81
--- NOTE | 2019-03-28 08:00 | NUR ---
ASSESSMENT NOTE PT IS RESTING IN BED COMFORTABLY, VERY CALM, FOLLOW COMMANDS, ALERT TO SELF, PLACE AND HOME ADDRESS, CONFUSED TIME, DAY, YEAR, PAIN 0/10, ASSISTED TO SIT UP AND EAT HIS BREAKFAST, PAIN 0/10, CALL LIGHT WITHIN REACH
[2019-03-28] MEDS ORDERED: cefTRIAXone 1GM/50ML D5W 50 ML IV SCH (09:00)
[2019-03-28] MEDS: ASPirin-EC 81 mg tab PO SCH (09:41)
[2019-03-28] MEDS: FAMOTIDINE 20 MG TAB PO SCH (09:41)
[2019-03-28] MEDS: LOSARTAN POTASSIUM 25 MG TAB PO SCH (10:00)
--- NOTE | 2019-03-28 10:00 | NUR ---
PATIENT'S SON CALLED TO FOLLOW UP ON HIS DAD
--- NOTE | 2019-03-28 10:25 | NUR ---
EEG COMPLETED AT BEDSIDE. JEREMIAH GEORGE AWARE.
--- NOTE | 2019-03-28 10:49 | NUR ---
DR DRAKE AT BED SIDE FOLLOWING UP ON PT
--- NOTE | 2019-03-28 11:30 | NUR ---
BM AND URINE PT WAS ABLE TO AMBULATE TO BATHROOM TO URINATE AND HAVE A BM ASSESSED PT AFTER GOT BACK IN BED HIS BLADDER, NO DISTENTION NOTED, PT STATED < I FEEL EMPTY>
[2019-03-28] MEDS ORDERED: ASPirin 81 mg TAB PO ONE (12:30)
--- NOTE | 2019-03-28 12:35 | NUR ---
FAMILY PATIENT'S SON AND AT BED SIDE PAGE DR DRAKE
--- NOTE | 2019-03-28 12:40 | NUR ---
DR DRAKE AT BED SIDE WITH DISCHARGE HOME INSTRUCTION
--- NOTE | 2019-03-28 12:45 | NUR ---
EVERT PACKAGE WORKER INFORM ME THAT THERE IS ORDERS FOR ASPIRIN AND COUMADIN,PT NEED TO GO HOME WITH RX FROM DR DRAKE, PAGE DR DRAKE
--- NOTE | 2019-03-28 13:00 | NUR ---
DR DRAKE IS HERE INFORM ME THAT PT HAVE TO START ON COUMADIN 5 MG NOT 2.5, AND MAKR APPOINTMENT WITH [facility] CALLED PHARMACY
[2019-03-28] MEDS ORDERED: WARFARIN SODIUM 5 MG TAB PO ONE (13:30)
[2019-03-28 13:31] VITALS: BP 125/81
--- NOTE | 2019-03-28 13:50 | NUR ---
ALL DISCHARGE INSTRUCTION GIVEN VERY CAREFULLY SINCE FAMILY ARE SECOND LANGUAGE WITH BOTH DR STARKS APPOINTMENT AND COUMADIN CLINIC APPOINTMENT, SPECIFIC EDUCATION GIVEN REGARDING COUMADIN, AND FOLLOW UP WITH THE COUMADIN CLINIC AND LOOK ABOUT OF SIGNS OF BLEEDING, PATIENT SON VERBALIS UNDERSTANDING
[2019-03-28] MEDS ORDERED: WARFARIN SODIUM 2.5 MG TAB PO ONE (17:00)
[2019-03-29] MEDS ORDERED: ASPirin 81 mg TAB PO SCH (10:00)
== END 2019-03-28 14:10 | disposition home or self-care (01) | DRG 92 ==
LOC: ER 13:15 → TELE 13:16 → TELE-EAST 03-27 09:21
PROVIDERS: ADMIT Nurse Practitioner Acute Care; ATTEND Internal Medicine
DX: G92 Toxic encephalopathy (principal); I50.22 Chronic systolic (congestive) heart failure; E87.1 Hypo-osmolality and hyponatremia; I48.92 Unspecified atrial flutter; I48.19 Other persistent atrial fibrillation; F03.90 Unspecified dementia, unspecified severity, without behavioral disturbance, psychotic disturbance, mood disturbance, and anxiety; R79.89 Other specified abnormal findings of blood chemistry; I11.0 Hypertensive heart disease with heart failure; N40.0 Benign prostatic hyperplasia without lower urinary tract symptoms; I25.10 Atherosclerotic heart disease of native coronary artery without angina pectoris; K21.9 Gastro-esophageal reflux disease without esophagitis; F17.200 Nicotine dependence, unspecified, uncomplicated; F32.9 Major depressive disorder, single episode, unspecified; D63.8 Anemia in other chronic diseases classified elsewhere; J44.9 Chronic obstructive pulmonary disease, unspecified; Z79.82 Long term (current) use of aspirin; Z79.899 Other long term (current) drug therapy; Z82.49 Family history of ischemic heart disease and other diseases of the circulatory system; Z95.2 Presence of prosthetic heart valve; Z95.5 Presence of coronary angioplasty implant and graft; Z82.5 Family history of asthma and other chronic lower respiratory diseases; Z86.73 Personal history of transient ischemic attack (TIA), and cerebral infarction without residual deficits; Z79.01 Long term (current) use of anticoagulants; Z88.5 Allergy status to narcotic agent; Z95.0 Presence of cardiac pacemaker; I25.2 Old myocardial infarction
CPT/HCPCS: 36415; 70450; 71046; 80048; 80053; 80307; 80320; 81001; 82306; 82607; 83880; 84425; 84443; 84484; 85025; 85610; 87040; 87081; 87086; 87088; 87186; 93005; 93306; 95819; 97163; G0378; J0696; Q9956

== ENCOUNTER 2019-05-25 16:29 | Inpatient (IN) | payer OTHER ==
[~2019-05-25] VITALS: Ht 165.1 cm; Wt 62.7 kg
[~2019-05-25 16:29] MED LIST changes: +ATOR10TA52 PO; +POTA-220 PO; -POTA1TAB61 PO
[2019-05-25 17:54] LABS: Basophils # (auto) 0 uL; Basophils % (auto) 0.7 % (0.0-2.0); Eosinophils # (auto) 0.1 uL; Eosinophils % (auto) 1.6 % (0.0-7.0); Hematocrit 35.4 % (41.0-53.0); Hemoglobin 11.2 g/dL (13.5-17.5); Lymphocytes # (auto) 1.1 uL; Lymphocytes % (auto) 17.4 % (10.0-50.0); Mean Corpuscular Hemoglobin 27.7 pg (28.0-32.0); Mean Corpuscular Hgb Conc. 31.5 g/dL (32.0-36.0); Mean Corpuscular Volume 87.8 fL (80.0-100.0); Monocytes # (auto) 0.9 uL; Monocytes % (auto) 13.7 % (0.0-12.0); Neutrophils # (auto) 4.3 uL; Neutrophils % (auto) 66.6 % (37.0-80.0); Nucleated Red Blood Cells % 0.1 %; Platelet Count (auto) 164 10^3/uL (140-450); Red Blood Cells 4.04 10^6/uL (4.5-5.90); Red Cell Distribution Width 16.5 % (11.8-14.3); White Blood Cell 6.5 10^3/uL (4.4-10.8)
[2019-05-25 18:10] LABS: Partial Thromboplastin Time 47.8 sec (23.64-32.05)
[2019-05-25 18:13] LABS: Albumin 3.7 g/dL (3.4-5.0); Calcium 8.6 mg/dL (8.5-10.1); Potassium 4.1 mmol/L (3.5-5.1)
[2019-05-25 18:15] LABS: BUN/Creatinine Ratio 26.9
[2019-05-25 18:20] LABS: Bilirubin, Total 0.8 mg/dL (0.2-1.0); Total Protein 8.2 g/dL (6.4-8.2)
[2019-05-26] MEDS ORDERED: FUROSEMIDE 20 MG/2 ML VIAL IV ONE (01:45)
[2019-05-26] MEDS ORDERED: NITROGLYCERIN 0.4 MG SL TAB SL PRN (02:45)
[2019-05-26] MEDS ORDERED: ONDANSETRON HCL 4 MG/2 ML VIAL IV PRN (02:45)
[2019-05-26 04:05] VITALS: BP 115/76
[2019-05-26] MEDS: FUROSEMIDE 40 MG/4 ML VIAL IV SCH ×3 (06:00→17:51)
[2019-05-26] MEDS: PANTOPRAZOLE 40 MG TAB PO SCH (06:20)
[2019-05-26 07:39] LABS: Basophils # (auto) 0 uL; Basophils % (auto) 0.5 % (0.0-2.0); Eosinophils # (auto) 0.1 uL; Eosinophils % (auto) 1.6 % (0.0-7.0); Hematocrit 32.8 % (41.0-53.0); Hemoglobin 10.7 g/dL (13.5-17.5); Lymphocytes # (auto) 0.8 uL; Lymphocytes % (auto) 16.5 % (10.0-50.0); Mean Corpuscular Hemoglobin 28.8 pg (28.0-32.0); Mean Corpuscular Hgb Conc. 32.7 g/dL (32.0-36.0); Monocytes # (auto) 0.6 uL; Monocytes % (auto) 12.8 % (0.0-12.0); Neutrophils # (auto) 3.4 uL; Neutrophils % (auto) 68.6 % (37.0-80.0); Platelet Count (auto) 143 10^3/uL (140-450); Red Blood Cells 3.72 10^6/uL (4.5-5.90); Red Cell Distribution Width 16.4 % (11.8-14.3)
[2019-05-26 07:59] LABS: Calcium 8.3 mg/dL (8.5-10.1); Potassium 3.8 mmol/L (3.5-5.1)
[2019-05-26 09:00] VITALS: BP 111/67
[2019-05-26] MEDS: ACETAMINOPHEN 325 MG TAB PO PRN (09:35)
[2019-05-26] MEDS: DOCUSATE SOD 100 MG CAP PO SCH (09:35)
[2019-05-26] MEDS: ATORVASTATIN 20 MG TAB PO SCH (09:35)
[2019-05-26] MEDS: CLOPIDOGREL BISULFATE 75 MG TAB PO SCH (09:35)
[2019-05-26] MEDS: ASPirin 81 mg TAB PO SCH (09:36)
[2019-05-26] MEDS: LOSARTAN POTASSIUM 25 MG TAB PO SCH (09:36)
[2019-05-26] MEDS: POTASSIUM CHL 20 Meq TABLET PO SCH (09:36)
[2019-05-26] MEDS: TAMSULOSIN HYDROCHLORIDE 0.4 MG CAP PO SCH (09:36)
[2019-05-26] MEDS ORDERED: WARF5TAB71 PO (09:44)
[2019-05-26] MEDS ORDERED: PATIENTS OWN MEDICATION (Atorvastatin Calcium 1 TAB) PO SCH (10:00)
[2019-05-26] MEDS ORDERED: OMEPRAZOLE 20MG/10ML ORAL SUSP PO SCH (10:00)
[2019-05-26 13:00] VITALS: BP 94/58
[2019-05-26 17:00] VITALS: BP 102/61
[2019-05-26 21:54] VITALS: BP 94/57
[2019-05-27 04:54] VITALS: BP 112/64
[2019-05-27] MEDS: FUROSEMIDE 40 MG/4 ML VIAL IV SCH (06:00)
[2019-05-27] MEDS: PANTOPRAZOLE 40 MG TAB PO SCH (06:06)
[2019-05-27 09:00] VITALS: BP 131/80
[2019-05-27] MEDS: POTASSIUM CHL 20 Meq TABLET PO SCH (09:16)
[2019-05-27] MEDS: DOCUSATE SOD 100 MG CAP PO SCH (09:16)
[2019-05-27] MEDS: CLOPIDOGREL BISULFATE 75 MG TAB PO SCH (09:16)
[2019-05-27] MEDS: LOSARTAN POTASSIUM 25 MG TAB PO SCH (09:17)
[2019-05-27] MEDS: ATORVASTATIN 20 MG TAB PO SCH (09:17)
[2019-05-27] MEDS: ASPirin 81 mg TAB PO SCH (09:17)
[2019-05-27] MEDS: TAMSULOSIN HYDROCHLORIDE 0.4 MG CAP PO SCH (09:17)
[2019-05-27] MEDS: ACETAMINOPHEN 325 MG TAB PO PRN (09:19)
[2019-05-27] MEDS ORDERED: HYDROcodone-ACET 5/325MG TAB PO PRN (12:00)
[2019-05-27] MEDS ORDERED: KETOROLAC TROMETH 30 MG/ML 1ML VIAL IV ONE ×2 (12:45→14:15)
[2019-05-27 13:00] VITALS: BP 106/76
[2019-05-27 17:00] VITALS: BP 104/65
[2019-05-27] MEDS: FUROSEMIDE 20 MG/2 ML VIAL IV SCH (17:54)
[2019-05-27 22:00] VITALS: BP 114/73
[2019-05-28 05:41] VITALS: BP 110/67
[2019-05-28] MEDS: PANTOPRAZOLE 40 MG TAB PO SCH (06:36)
[2019-05-28] MEDS: FUROSEMIDE 20 MG/2 ML VIAL IV SCH ×2 (06:36→17:54)
[2019-05-28] MEDS ORDERED: ADENOSINE 55 MG in GIVE UN-DILUTED 0 ML IV STA (08:19)
[2019-05-28 09:00] VITALS: BP 94/52
[2019-05-28] MEDS: POTASSIUM CHL 20 Meq TABLET PO SCH (09:55)
[2019-05-28] MEDS: TAMSULOSIN HYDROCHLORIDE 0.4 MG CAP PO SCH (09:55)
[2019-05-28] MEDS: ASPirin 81 mg TAB PO SCH (09:55)
[2019-05-28] MEDS: DOCUSATE SOD 100 MG CAP PO SCH (09:55)
[2019-05-28] MEDS: CLOPIDOGREL BISULFATE 75 MG TAB PO SCH (09:55)
[2019-05-28] MEDS: ATORVASTATIN 20 MG TAB PO SCH (09:56)
[2019-05-28] MEDS: LOSARTAN POTASSIUM 25 MG TAB PO SCH (09:58)
[2019-05-28 11:17] VITALS: BP 127/68
[2019-05-28 13:00] VITALS: BP 119/67
[2019-05-28 17:00] VITALS: BP 128/83
[2019-05-28 22:00] VITALS: BP 128/75
[2019-05-29 05:00] VITALS: BP 121/71
[2019-05-29] MEDS: FUROSEMIDE 20 MG/2 ML VIAL IV SCH ×2 (06:19→17:52)
[2019-05-29] MEDS: PANTOPRAZOLE 40 MG TAB PO SCH (06:20)
[2019-05-29 06:32] LABS: Basophils # (auto) 0 uL; Eosinophils # (auto) 0.2 uL; Eosinophils % (auto) 5.2 % (0.0-7.0); Hematocrit 33.7 % (41.0-53.0); Hemoglobin 10.8 g/dL (13.5-17.5); Lymphocytes # (auto) 0.9 uL; Lymphocytes % (auto) 19.5 % (10.0-50.0); Mean Corpuscular Hemoglobin 28.1 pg (28.0-32.0); Mean Corpuscular Hgb Conc. 32.2 g/dL (32.0-36.0); Mean Corpuscular Volume 87.5 fL (80.0-100.0); Monocytes # (auto) 0.5 uL; Monocytes % (auto) 10.7 % (0.0-12.0); Neutrophils # (auto) 2.9 uL; Neutrophils % (auto) 63.6 % (37.0-80.0); Platelet Count (auto) 190 10^3/uL (140-450); Red Blood Cells 3.85 10^6/uL (4.5-5.90); Red Cell Distribution Width 16.5 % (11.8-14.3); White Blood Cell 4.6 10^3/uL (4.4-10.8)
[2019-05-29 06:52] LABS: BUN/Creatinine Ratio 37.2; Calcium 8.9 mg/dL (8.5-10.1); Potassium 4.2 mmol/L (3.5-5.1)
[2019-05-29 07:06] LABS: INR 1.47 (0.9-1.15); Partial Thromboplastin Time 32.2 sec (23.64-32.05)
[2019-05-29 08:00] VITALS: BP 125/70
[2019-05-29] MEDS: TAMSULOSIN HYDROCHLORIDE 0.4 MG CAP PO SCH (09:22)
[2019-05-29] MEDS: DOCUSATE SOD 100 MG CAP PO SCH (09:22)
[2019-05-29] MEDS: CLOPIDOGREL BISULFATE 75 MG TAB PO SCH (09:23)
[2019-05-29] MEDS: ATORVASTATIN 20 MG TAB PO SCH (09:23)
[2019-05-29] MEDS: ASPirin 81 mg TAB PO SCH (09:23)
[2019-05-29] MEDS: POTASSIUM CHL 20 Meq TABLET PO SCH (09:23)
[2019-05-29] MEDS: LOSARTAN POTASSIUM 25 MG TAB PO SCH (09:24)
[2019-05-29] MEDS ORDERED: LIDOCAINE 2%HCL (LOCAL ANESTH.) INJ 20ML MDV ONE (13:32)
[2019-05-29] MEDS ORDERED: IOHEXOL 350 MG/ML 100ML IJ ONE (13:32)
[2019-05-29] MEDS ORDERED: fentaNYL CITRATE 100 MCG/2 ML VL ONE (13:41)
[2019-05-29] MEDS ORDERED: ANGIOMAX 250 MG VIAL IV ONE (13:41)
[2019-05-29] MEDS ORDERED: SODIUM CHL 0.9% 0 ML ONE (13:41)
[2019-05-29] MEDS ORDERED: MIDAZOLAM HCL 1MG/1ML-2 ML VIAL ONE (13:41)
[2019-05-29] MEDS ORDERED: HEPARIN SODIUM (PORCINE) 5000 UNITS/ML 1ML VIAL ONE (14:14)
[2019-05-29 17:00] VITALS: BP 113/70
[2019-05-29 22:00] VITALS: BP 98/57
[2019-05-30 05:00] VITALS: BP 114/62
[2019-05-30] MEDS: FUROSEMIDE 20 MG/2 ML VIAL IV SCH (06:13)
[2019-05-30] MEDS: PANTOPRAZOLE 40 MG TAB PO SCH (06:14)
[2019-05-30 08:00] VITALS: BP 129/79
[2019-05-30] MEDS: ASPirin 81 mg TAB PO SCH (10:09)
[2019-05-30] MEDS: TAMSULOSIN HYDROCHLORIDE 0.4 MG CAP PO SCH (10:09)
[2019-05-30] MEDS: ATORVASTATIN 20 MG TAB PO SCH (10:10)
[2019-05-30] MEDS: CLOPIDOGREL BISULFATE 75 MG TAB PO SCH (10:10)
[2019-05-30] MEDS: LOSARTAN POTASSIUM 25 MG TAB PO SCH (10:10)
[2019-05-30] MEDS: DOCUSATE SOD 100 MG CAP PO SCH (10:10)
[2019-05-30] MEDS: POTASSIUM CHL 20 Meq TABLET PO SCH (10:10)
[2019-05-30 10:44] VITALS: BP 129/75
== END 2019-05-30 11:05 | disposition home or self-care (01) | DRG 287 ==
LOC: ER 16:29 → TELE 16:30 → TELE-WESTW 05-26 04:08
PROVIDERS: ADMIT Hospitalist; ATTEND Family Medicine
PROC: 4A023N6 Measurement of Cardiac Sampling and Pressure, Right Heart, Percutaneous Approach (ICD-10-PCS; principal; 2019-05-29)
PROC: B2111ZZ Fluoroscopy of Multiple Coronary Arteries using Low Osmolar Contrast (ICD-10-PCS; 2019-05-29)
PROC: 4A033BC Measurement of Arterial Pressure, Coronary, Percutaneous Approach (ICD-10-PCS; 2019-05-29)
DX: I11.0 Hypertensive heart disease with heart failure (principal); I25.10 Atherosclerotic heart disease of native coronary artery without angina pectoris; I50.43 Acute on chronic combined systolic (congestive) and diastolic (congestive) heart failure; K21.9 Gastro-esophageal reflux disease without esophagitis; N40.0 Benign prostatic hyperplasia without lower urinary tract symptoms; F03.90 Unspecified dementia, unspecified severity, without behavioral disturbance, psychotic disturbance, mood disturbance, and anxiety; F32.9 Major depressive disorder, single episode, unspecified; E78.5 Hyperlipidemia, unspecified; S90.02XA Contusion of left ankle, initial encounter; X58.XXXA Exposure to other specified factors, initial encounter; E78.00 Pure hypercholesterolemia, unspecified; Z82.49 Family history of ischemic heart disease and other diseases of the circulatory system; Z82.5 Family history of asthma and other chronic lower respiratory diseases; Z95.2 Presence of prosthetic heart valve; I25.2 Old myocardial infarction; Z95.0 Presence of cardiac pacemaker; Z95.5 Presence of coronary angioplasty implant and graft; Z95.1 Presence of aortocoronary bypass graft; Z88.5 Allergy status to narcotic agent; Y93.89 Activity, other specified; Y92.89 Other specified places as the place of occurrence of the external cause; Y99.8 Other external cause status
CPT/HCPCS: 36415; 71046; 73700; 78452; 80048; 80053; 83880; 84484; 85025; 85610; 85730; 93005; 93017; 93970; 99152; 99153; C1751; G0378; J0153; J1885; J2250

== ENCOUNTER → 2019-06-13 | Outpatient (CLI) | payer OTHER ==
[~2019-06-13] MED LIST changes: +WARF5TAB71 PO
[2019-06-13 10:58] LABS: Basophils # (auto) 0 uL; Basophils % (auto) 0.9 % (0.0-2.0); Eosinophils # (auto) 0.1 uL; Eosinophils % (auto) 3.3 % (0.0-7.0); Lymphocytes # (auto) 0.7 uL; Lymphocytes % (auto) 19.6 % (10.0-50.0); Mean Corpuscular Hemoglobin 28.1 pg (28.0-32.0); Mean Corpuscular Hgb Conc. 32.2 g/dL (32.0-36.0); Mean Corpuscular Volume 87.3 fL (80.0-100.0); Monocytes # (auto) 0.4 uL; Monocytes % (auto) 10.9 % (0.0-12.0); Neutrophils # (auto) 2.5 uL; Neutrophils % (auto) 65.3 % (37.0-80.0); Nucleated Red Blood Cells % 0.1 %; Platelet Count (auto) 211 10^3/uL (140-450); Red Cell Distribution Width 17.5 % (11.8-14.3); White Blood Cell 3.8 10^3/uL (4.4-10.8)
[2019-06-13 11:24] LABS: Potassium 4.5 mmol/L (3.5-5.1)
[2019-06-13 11:30] LABS: Albumin 3.9 g/dL (3.4-5.0); BUN/Creatinine Ratio 20.4; Bilirubin, Total 0.4 mg/dL (0.2-1.0); Total Protein 7.8 g/dL (6.4-8.2)
== END | disposition home or self-care (01) ==
LOC: LAB 10:44
PROVIDERS: ATTEND Internal Medicine
DX: I50.32 Chronic diastolic (congestive) heart failure (principal); I35.0 Nonrheumatic aortic (valve) stenosis
CPT/HCPCS: 36415; 80053; 85025

== ENCOUNTER → 2019-06-19 | Outpatient (CLI) | payer OTHER | END | disposition home or self-care (01) | LOC: LAB 10:27 | PROVIDERS: ATTEND Urology | DX: N52.9 Male erectile dysfunction, unspecified (principal); N40.1 Benign prostatic hyperplasia with lower urinary tract symptoms | CPT/HCPCS: 84153 ==

== ENCOUNTER → 2019-11-01 | Outpatient (CLI) | payer OTHER ==
[2019-11-01 09:45] LABS: Potassium 4.2 mmol/L (3.5-5.1)
[2019-11-01 09:51] LABS: Bilirubin, Total 0.7 mg/dL (0.2-1.0); Calcium 8.7 mg/dL (8.5-10.1); Magnesium 2.4 mg/dL (1.6-2.6); Total Protein 7.9 g/dL (6.4-8.2)
== END | disposition home or self-care (01) ==
LOC: LAB 08:40
PROVIDERS: ATTEND Internal Medicine
DX: I50.32 Chronic diastolic (congestive) heart failure (principal); R42 Dizziness and giddiness
CPT/HCPCS: 36415; 80053; 83735; 84439; 84443

== ENCOUNTER → 2020-04-14 | Outpatient (CLI) | payer OTHER ==
[2020-04-14 10:54] LABS: Basophils # (auto) 0 10 ^3/uL (0-0.2); Eosinophils # (auto) 0.1 10 ^3/uL (0-0.8); Eosinophils % (auto) 2.2 % (0.0-7.0); Lymphocytes # (auto) 0.8 10 ^3/uL (0.4-5.4); Monocytes # (auto) 0.4 10 ^3/uL (0-1.3); Neutrophils % (auto) 66.8 % (37.0-80.0); White Blood Cell 3.8 10^3/uL (4.4-10.8)
[2020-04-14 10:56] LABS: Hematocrit 33.7 % (41.0-53.0); Hemoglobin 10.6 g/dL (13.5-17.5); Lymphocytes % (auto) 20.4 % (10.0-50.0); Mean Corpuscular Hemoglobin 25.6 pg (28.0-32.0); Mean Corpuscular Hgb Conc. 31.6 g/dL (32.0-36.0); Mean Corpuscular Volume 81.2 fL (80.0-100.0); Monocytes % (auto) 9.6 % (0.0-12.0); Neutrophils # (auto) 2.6 10 ^3/uL (1.6-8.6); Platelet Count (auto) 262 10^3/uL (140-450); Red Blood Cells 4.15 10^6/uL (4.5-5.90); Red Cell Distribution Width 19.5 % (11.8-14.3)
[2020-04-14 11:11] LABS: Albumin 3.6 g/dL (3.4-5.0); Calcium 8.9 mg/dL (8.5-10.1); Potassium 4.7 mmol/L (3.5-5.1)
[2020-04-14 11:15] LABS: BUN/Creatinine Ratio 23.2; Bilirubin, Total 0.8 mg/dL (0.2-1.0); Total Protein 7.5 g/dL (6.4-8.2)
[2020-04-14 11:18] LABS: Urine Bacteria NONE SEEN /hpf (None Seen); Urine Blood Negative /uL (Negative); Urine Hyaline Cast FEW /lpf (0 - 2); Urine Mucus FEW (None Seen); Urine Specific Gravity 1.026 (1.001-1.035); Urine WBC 1 /hpf (0 - 3)
[2020-04-14 11:20] LABS: Free T4 (Free Thyroxine) 0.83 ng/dL (0.89-1.76)
== END | disposition home or self-care (01) ==
LOC: LAB 10:38
PROVIDERS: ATTEND Internal Medicine
DX: I11.0 Hypertensive heart disease with heart failure (principal); I50.9 Heart failure, unspecified; F03.90 Unspecified dementia, unspecified severity, without behavioral disturbance, psychotic disturbance, mood disturbance, and anxiety
CPT/HCPCS: 36415; 80053; 80061; 81001; 82607; 83880; 84439; 84443; 85025; 85652

== ENCOUNTER → 2020-06-30 | Outpatient (CLI) | payer OTHER ==
[2020-06-30 12:51] LABS: Urine Bacteria NONE SEEN /hpf (None Seen); Urine Blood Negative /uL (Negative); Urine Specific Gravity 1.007 (1.001-1.035); Urine WBC <1 /hpf (0 - 3)
== END | disposition home or self-care (01) ==
LOC: LAB 12:08
PROVIDERS: ATTEND Urology
DX: N40.0 Benign prostatic hyperplasia without lower urinary tract symptoms (principal)
CPT/HCPCS: 81001; 84153; 87086

== ENCOUNTER → 2020-09-01 | Outpatient (CLI) | payer OTHER ==
[2020-09-01 11:57] LABS: Basophils # (auto) 0 10 ^3/uL (0-0.2); Basophils % (auto) 0.7 % (0.0-2.0); Eosinophils # (auto) 0.2 10 ^3/uL (0-0.8); Eosinophils % (auto) 3.3 % (0.0-7.0); Hematocrit 35.4 % (41.0-53.0); Lymphocytes % (auto) 20.3 % (10.0-50.0); Mean Corpuscular Hemoglobin 24.8 pg (28.0-32.0); Mean Corpuscular Hgb Conc. 31.1 g/dL (32.0-36.0); Mean Corpuscular Volume 79.7 fL (80.0-100.0); Monocytes # (auto) 0.5 10 ^3/uL (0-1.3); Monocytes % (auto) 9.2 % (0.0-12.0); Neutrophils # (auto) 3.4 10 ^3/uL (1.6-8.6); Neutrophils % (auto) 66.5 % (37.0-80.0); Nucleated Red Blood Cells % 0.1 %; Platelet Count (auto) 226 10^3/uL (140-450); Red Blood Cells 4.45 10^6/uL (4.5-5.90); White Blood Cell 5.1 10^3/uL (4.4-10.8)
[2020-09-01 12:16] LABS: INR 1.5 (0.9-1.15)
== END | disposition home or self-care (01) ==
LOC: LAB 11:41
PROVIDERS: ATTEND Internal Medicine
DX: R51.9 Headache, unspecified (principal); D64.9 Anemia, unspecified
CPT/HCPCS: 36415; 83540; 83550; 85025; 85610; 85652

== ENCOUNTER → 2020-10-12 | Outpatient (CLI) | payer OTHER ==
[2020-10-12 11:48] LABS: Basophils # (auto) 0 10 ^3/uL (0-0.2); Basophils % (auto) 0.8 % (0.0-2.0); Eosinophils # (auto) 0.1 10 ^3/uL (0-0.8); Lymphocytes # (auto) 0.9 10 ^3/uL (0.4-5.4); Lymphocytes % (auto) 17.6 % (10.0-50.0); Mean Corpuscular Hemoglobin 25.4 pg (28.0-32.0); Mean Corpuscular Hgb Conc. 31.5 g/dL (32.0-36.0); Mean Corpuscular Volume 80.8 fL (80.0-100.0); Monocytes # (auto) 0.4 10 ^3/uL (0-1.3); Monocytes % (auto) 7.8 % (0.0-12.0); Neutrophils # (auto) 3.6 10 ^3/uL (1.6-8.6); Neutrophils % (auto) 71.8 % (37.0-80.0); Nucleated Red Blood Cells % 0.1 %; Platelet Count (auto) 209 10^3/uL (140-450); Red Blood Cells 4.33 10^6/uL (4.5-5.90); Red Cell Distribution Width 21.3 % (11.8-14.3)
[2020-10-12 13:05] LABS: Albumin 4.2 g/dL (3.4-5.0); BUN/Creatinine Ratio 23.9; Calcium 8.9 mg/dL (8.5-10.1); Magnesium 2.2 mg/dL (1.6-2.6)
[2020-10-12 13:07] LABS: Bilirubin, Total 0.8 mg/dL (0.2-1.0)
== END | disposition home or self-care (01) ==
LOC: LAB 11:28
PROVIDERS: ATTEND Internal Medicine
DX: I10 Essential (primary) hypertension (principal); I48.91 Unspecified atrial fibrillation; D64.9 Anemia, unspecified
CPT/HCPCS: 36415; 80053; 83735; 84443; 85025

== ENCOUNTER 2020-12-27 02:12 | Inpatient (IN) | payer OTHER ==
[~2020-12-27] VITALS: Ht 162.6 cm; Wt 63.5 kg
[2020-12-27 03:18] LABS: Hematocrit 34.1 % (41.0-53.0); Hemoglobin 11.1 g/dL (13.5-17.5); Mean Corpuscular Hemoglobin 27.1 pg (28.0-32.0); Mean Corpuscular Hgb Conc. 32.6 g/dL (32.0-36.0); Mean Corpuscular Volume 83.1 fL (80.0-100.0); White Blood Cell 5.4 10^3/uL (4.4-10.8)
[2020-12-27 03:23] LABS: Red Cell Distribution Width 21.4 % (11.8-14.3)
[2020-12-27 03:25] LABS: Basophils % (manual) 0 (0.0-2.0); Blast Cells 0; Eosinophils % (manual) 0 (0-7); Metamyelocytes % 0; Myelocytes % 0; Promyelocytes % 0; Reactive Lymphocytes 0
[2020-12-27 03:36] LABS: Albumin 2.7 g/dL (3.4-5.0); BUN/Creatinine Ratio 18.9; Calcium 7.5 mg/dL (8.5-10.1); Potassium 3.2 mmol/L (3.5-5.1)
[2020-12-27 03:41] LABS: Bilirubin, Total 1.1 mg/dL (0.2-1.0); Total Protein 6.5 g/dL (6.4-8.2)
[2020-12-27 05:33] LABS: Band Neutrophils % (manual) 26; Lymphocytes % (manual) 1 (10.0-50.0); Monocytes % (manual) 4 (0-12)
[2020-12-27 06:02] LABS: Magnesium 1.8 mg/dL (1.6-2.6)
[2020-12-27 07:26] LABS: INR 2.24 (0.9-1.15); Partial Thromboplastin Time 40.3 sec (23.6-33.0)
[2020-12-27] MEDS ORDERED: NITROGLYCERIN 0.4 MG SL TAB SL PRN (08:45)
[2020-12-27] MEDS ORDERED: MORPHINE SULFATE INJECTION 2 MG/ML SYRG IV PRN ×2 (08:45→09:30)
[2020-12-27] MEDS ORDERED: methylPREDNISolone SOD SUCC 40 MG/ML VL IV ONE (09:15)
[2020-12-27] MEDS ORDERED: DEXTROSE (50%) 50ML SYRG IV PRN (09:30)
[2020-12-27] MEDS ORDERED: ALBUTEROL SULF 2.5 MG/0.5ML(0.5%) NEB SOLN NEB PRN (09:30)
[2020-12-27] MEDS ORDERED: ONDANSETRON HCL 4 MG/2 ML VIAL IV PRN (09:30)
[2020-12-27] MEDS ORDERED: traMADol HCL 50 MG TAB PO PRN (09:30)
[2020-12-27] MEDS ORDERED: ACETAMINOPHEN 500 MG TAB PO PRN (09:30)
[2020-12-27] MEDS ORDERED: LACTULOSE 20Gm/30ML SOLN PO PRN (09:30)
[2020-12-27] MEDS ORDERED: cefTRIAXone 1GM/50ML D5W 50 ML IV ONE (09:30)
[2020-12-27] MEDS ORDERED: PATIENTS OWN MEDICATION (Atorvastatin Calcium 1 TAB) PO SCH (10:00)
[2020-12-27] MEDS: SODIUM CHLORIDE 0.9% 1,000 ML IV SCH ×2 (10:10→23:05)
[2020-12-27 10:15] LABS: Uric Acid 7.2 mg/dL (3.5-7.2)
[2020-12-27] MEDS: ASPirin 81 mg TAB PO SCH (10:24)
[2020-12-27] MEDS: CARVEDILOL 3.125 MG TAB PO SCH ×2 (10:25→22:30)
[2020-12-27] MEDS: TAMSULOSIN HYDROCHLORIDE 0.4 MG CAP PO SCH (10:26)
[2020-12-27] MEDS: PANTOPRAZOLE 40 MG TAB PO SCH (10:27)
[2020-12-27] MEDS: NITROGLYCERIN 0.2MG/HR TOPICAL PATCH TD SCH (10:31)
[2020-12-27] MEDS: ACCU-CHEK COMFORT CURVE STRIP VI SCH ×3 (11:30→23:40)
[2020-12-27] MEDS: ALBUTEROL SULF 2.5 MG/0.5ML(0.5%) NEB SOLN NEB SCH ×2 (11:58→18:34)
[2020-12-27] MEDS: IPRATROPIUM BROM 0.5 MG/2.5ML INH SOL NEB SCH ×2 (11:58→18:35)
[2020-12-27 12:08] VITALS: BP 125/80
[2020-12-27] MEDS ORDERED: CLINDAMYCIN 600MG IV 50 ML IV SCH (14:00)
[2020-12-27] MEDS: SODIUM CHLOR 0.9% PF (SALINE LOCK) 10ML VIAL/SYR IV SCH ×2 (14:14→22:00)
[2020-12-27] MEDS ORDERED: ENOXAPARIN SOD 100 MG/1 ML SYRINGE SC SCH (22:00)
[2020-12-27] MEDS ORDERED: ATORVASTATIN 20 MG TAB PO SCH (22:00)
[2020-12-27] MEDS ORDERED: VANCOMYCIN PER PHARMACY 0 MG IV SCH (22:30)
[2020-12-27] MEDS: methylPREDNISolone SOD SUCC 40 MG/ML VL IV SCH (22:30)
[2020-12-27] MEDS ORDERED: VANCOMYCIN 1GM/250ML 250 ML IV ONE (22:45)
[2020-12-28] MEDS: ALBUTEROL SULF 2.5 MG/0.5ML(0.5%) NEB SOLN NEB SCH ×4 (00:08→18:00)
[2020-12-28] MEDS: IPRATROPIUM BROM 0.5 MG/2.5ML INH SOL NEB SCH ×4 (00:08→18:00)
[2020-12-28] MEDS: PIPERACILLIN-TAZOB 3.375GM 100 ML IV SCH ×2 (01:00→06:40)
[2020-12-28 04:58] LABS: Urine Bacteria NONE SEEN /hpf (None Seen); Urine Blood 3+ /uL (Negative); Urine Hyaline Cast FEW /lpf (0 - 2); Urine Mucus FEW (None Seen); Urine Specific Gravity 1.022 (1.001-1.035); Urine WBC 27 /hpf (0 - 3)
[2020-12-28] MEDS: SODIUM CHLOR 0.9% PF (SALINE LOCK) 10ML VIAL/SYR IV SCH ×2 (06:00→15:39)
[2020-12-28 07:29] LABS: Basophils # (auto) 0 10 ^3/uL (0-0.2); Basophils % (auto) 0.1 % (0.0-2.0); Eosinophils # (auto) 0.3 10 ^3/uL (0-0.8); Eosinophils % (auto) 5.3 % (0.0-7.0); Hematocrit 35.9 % (41.0-53.0); Hemoglobin 11.7 g/dL (13.5-17.5); Lymphocytes # (auto) 0.2 10 ^3/uL (0.4-5.4); Lymphocytes % (auto) 3.9 % (10.0-50.0); Mean Corpuscular Hemoglobin 27.2 pg (28.0-32.0); Mean Corpuscular Hgb Conc. 32.5 g/dL (32.0-36.0); Mean Corpuscular Volume 83.5 fL (80.0-100.0); Monocytes # (auto) 0.4 10 ^3/uL (0-1.3); Monocytes % (auto) 7.4 % (0.0-12.0); Neutrophils # (auto) 4.3 10 ^3/uL (1.6-8.6); Neutrophils % (auto) 83.3 % (37.0-80.0); Nucleated Red Blood Cells % 0.1 %; White Blood Cell 5.2 10^3/uL (4.4-10.8)
[2020-12-28 07:43] LABS: Potassium 3.5 mmol/L (3.5-5.1)
[2020-12-28 07:51] LABS: Albumin 2.3 g/dL (3.4-5.0); BUN/Creatinine Ratio 28.3; Bilirubin, Total 1.2 mg/dL (0.2-1.0); Calcium 7.5 mg/dL (8.5-10.1); Total Protein 6.6 g/dL (6.4-8.2)
[2020-12-28] MEDS: ACCU-CHEK COMFORT CURVE STRIP VI SCH ×3 (08:37→17:11)
[2020-12-28] MEDS ORDERED: cefTRIAXone 1GM/50ML D5W 50 ML IV SCH (09:00)
[2020-12-28] MEDS: methylPREDNISolone SOD SUCC 40 MG/ML VL IV SCH (10:00)
[2020-12-28] MEDS: TAMSULOSIN HYDROCHLORIDE 0.4 MG CAP PO SCH (10:00)
[2020-12-28] MEDS: ASPirin 81 mg TAB PO SCH (10:38)
[2020-12-28] MEDS: CARVEDILOL 3.125 MG TAB PO SCH (10:40)
[2020-12-28] MEDS: PANTOPRAZOLE 40 MG TAB PO SCH (10:41)
[2020-12-28] MEDS: NITROGLYCERIN 0.2MG/HR TOPICAL PATCH TD SCH (10:43)
[2020-12-28] MEDS ORDERED: PHYTONADIONE(VitK) ORAL Susp 10mg/10ml(1mg/ml) PO ONE (13:00)
[2020-12-28 17:00] VITALS: BP 112/68
== END 2020-12-28 18:37 | disposition hospice, home (50) | DRG 280 ==
LOC: EDBD 02:12 → ER 02:15 → TELE 08:33
PROVIDERS: ADMIT Internal Medicine; ATTEND Internal Medicine
DX: I21.4 Non-ST elevation (NSTEMI) myocardial infarction (principal); I50.23 Acute on chronic systolic (congestive) heart failure; N17.9 Acute kidney failure, unspecified; D68.9 Coagulation defect, unspecified; E46 Unspecified protein-calorie malnutrition; E86.0 Dehydration; Z20.822 Contact with and (suspected) exposure to COVID-19; Z66 Do not resuscitate; Z51.5 Encounter for palliative care; M19.032 Primary osteoarthritis, left wrist; M19.031 Primary osteoarthritis, right wrist; E87.6 Hypokalemia; D64.9 Anemia, unspecified; I25.10 Atherosclerotic heart disease of native coronary artery without angina pectoris; I48.91 Unspecified atrial fibrillation; I35.0 Nonrheumatic aortic (valve) stenosis; N40.0 Benign prostatic hyperplasia without lower urinary tract symptoms; K21.9 Gastro-esophageal reflux disease without esophagitis; R73.03 Prediabetes; E78.5 Hyperlipidemia, unspecified; F32.9 Major depressive disorder, single episode, unspecified; B19.20 Unspecified viral hepatitis C without hepatic coma; F03.90 Unspecified dementia, unspecified severity, without behavioral disturbance, psychotic disturbance, mood disturbance, and anxiety; R31.9 Hematuria, unspecified; Z88.5 Allergy status to narcotic agent; I25.2 Old myocardial infarction; Z95.1 Presence of aortocoronary bypass graft; Z95.810 Presence of automatic (implantable) cardiac defibrillator; Z87.891 Personal history of nicotine dependence; Z82.5 Family history of asthma and other chronic lower respiratory diseases; Z82.49 Family history of ischemic heart disease and other diseases of the circulatory system; Z79.899 Other long term (current) drug therapy; Z68.24 Body mass index [BMI] 24.0-24.9, adult
CPT/HCPCS: 36415; 71045; 73110; 80053; 81001; 82550; 82728; 82962; 83036; 83735; 83880; 84443; 84484; 84550; 85007; 85025; 85027; 85610; 85652; 85730; 86141; 86431; 86850; 86900; 86901; 86920; 87040; 87077; 87186; 87426; 93005; 93306; 94640; G0378; J0696; J2543; J3490